=== PATIENT | male | born 1985 | race Caucasian/White ===

== ENCOUNTER 2022-10-03 07:50 | Inpatient (IN) ==
[2022-10-03] MEDS ORDERED: ACTIVATED CHARCOAL/SORBITOL 25 GM/120 ML TUBE PO STA (08:33)
--- NOTE | 2022-10-03 08:35 | Emergency Department Note ---
Impression & Plan Depression, Overdose, Suicide, Acute hypokalemia, Acute hyponatremia, Transaminitis, Acute alcoholism ED Provider Note INFORMANT: Patient ED PROVIDER(S): Wayne Meza DO CHIEF COMPLAINT: Depression, suicidal, Advil overdose PLAN: Disposition: Psychiatric admission Condition: Stable Outpatient prescription management: none Referral: I spoke with the hospitalist, who will see the patient for a dmission/observation and further evaluation and consultation. MEDICAL DECISION MAKING: This is a 37-year-old male who presents to the ED with a chief complaint of Advil overdose. The patient states that he took 30 Advil tablets about half hour prior to arrival. The patient also had a knife in his pocket and threatened to stab himself. The patient states that he has a history of bipolar disorder. He has not been taking his meds for at least a year or 2. He has not been sleeping well for the past 5 days. He states that he is not taking his medications because he cannot afford them. The patient has been having some suicidal thoughts and hearing voices that states that they are going to kill him. His vital signs reveal mild tachycardia. His physical exam was unremarkable. He is cooperative. He is agreeable to inpatient. The patient's twelve-lead EKG shows a sinus rhythm at a rate of 101. CBC did not show any significant leukocytosis or anemia. The chemistry panel shows a low calcium of 2.4. Sodium is also low at 124. He does have a transaminitis. Mild bilirubin elevation. This is likely related to his alcoholism. He was requestioned with regards to what he took. He states Advil. He denies taking Tylenol or acetaminophen. The patient was given oral potassium as well as IV potassium. He was given IV fluids, IM Compazine and activated charcoal. The patient took the activated charcoal and subsequently vomited shortly after taking it. No pills were observed by the nurse. I spoke with the hospitalist, who will see the patient for further medical inpatient evaluation. While is here he can get seen by psychiatry as well. Triage Nursing notes reviewed. Vital Signs: reviewed Prior /Outside records reviewed: none Differential diagnosis: Differential includes toxic ingestions, self-mutilation, suicidal ideation, suicide attempt, depression, metabolic issues. Diagnostics, as interpreted by me: 12 lead ECG: Sinus rhythm 101. No ST elevation. No PVCs. Normal QTC. Cardiac Monitoring ordered: none Medical decision rules: none Imaging studies: Procedures: none. Critical care: none. HPI: See MDM above. PAST MEDICAL HISTORY: See Below PAST SURGICAL HISTORY: See Below SOCIAL HISTORY: See Below HOME MEDICATIONS: See Below ALLERGIES: See Below VITALS: See Below PHYSICAL EXAMINATION: CONSTITUTIONAL/VITAL SIGNS: Reviewed GENERAL: Non-toxic in appearance. INTEGUMENTARY: Warm, dry, and [place]. HEAD: Normocephalic. EYES: without scleral icterus. ENT/OROPHARYNX: clear and moist. RESPIRATORY: No increased work of breathing. Lungs clear. CARDIOVASCULAR: Regular rate. Regular rhythm. GI/ABDOMEN: Soft and nontender. . EXTREMITIES: Normal NEUROLOGICAL: Intact without focal deficits. PSYCHIATRIC: Normal affect. MUSCULOSKELETAL: Normal. TRIAGE NURSING DOCUMENTATION REVIEWED. Past Med/Surg History Medical History Alcohol abuse Surgical History No significant past surgical history Social History Smoking Status: Current every day smoker Tobacco Type: Cigarettes Preferred Language: Djiboutian Feels Safe at Home: Yes Allergies Allergies Allergy/AdvReac Type Severity Reaction Status Date / Time No Known Allergies Allergy Unverified 07/15/22 08:24 Home Meds Previous Rx's Medication Instructions Recorded amoxicillin 875 mg-potassium 1 tab PO BID #20 tabs 07/15/22 clavulanate 125 mg tablet Results & Data (ED) Vital Signs Vital Signs - 24 hr 10/03/22 08:03 10/03/22 08:03 Temperature 36.8 C Temperature Source Oral Pulse Rate 113 H Pulse Rhythm Regular Pulse Strength Normal Respiratory Rate 22 Respiratory Effort / Characteristics Non-Labored Spontaneous Respiratory Depth Normal Respiratory Pattern Regular Blood Pressure 134/83 Blood Pressure Mean 100 Blood Pressure Position Sitting Pulse Oximetry 98 98 Oxygen Delivery Method Room Air Room Air Oxygen Flow Rate 0 Sepsis New/Unexplained Change in Mental Status N/A Sepsis Action Taken by Nursing No Action Required Laboratory Data 10/03/22 08:40 10/03/22 08:40 Lab Results 10/03/22 10/03/22 10/03/22 Range/Units 08:00 08:00 08:40 WBC 4.50 L (4.8-10.8) K/ul RBC 3.77 L (4.70-6.10) M/uL Hgb 13.4 L (14.0-18.0) g/dl Hct 35.4 L (42.0-52.0) % MCV 93.9 (80.0-100.0) fL MCH 35.5 H (25.0-34.0) pg MCHC 37.9 H (32.0-36.0) g/dL RDW Std Deviation 43.9 (36.4-46.3) fL RDW Coeff of Juan 12.7 (11.5-14.5) % Plt Count 63 L (130-400) K/uL MPV 12.7 H (9.4-12.4) fL Immature Gran % (Auto) 0.4 % Neut % (Auto) 78.2 % Lymph % (Auto) 9.6 % [place] % (Auto) 11.6 % Eos % (Auto) 0.0 % Baso % (Auto) 0.2 % Neut # (Auto) 3.52 (1.40-6.50) K/uL Lymph # (Auto) 0.43 L (1.2-3.4) K/uL [place] # (Auto) 0.52 (0.11-0.59) K/uL Eos # (Auto) 0.00 (0-0.50) K/uL Baso # (Auto) 0.01 (0-0.2) K/uL Immature Gran # (Auto) 0.02 (0.01-0.20) K/uL RBC Morphology Unremarkable Sodium (136-145) mmol/L Potassium (3.5-5.1) mmol/L Chloride (98-107) mmol/L Carbon Dioxide (21-32) mmol/L Anion Gap (3-11) BUN (6-23) mg/dl Creatinine (0.6-1.4) mg/dl Est Cr Clr Drug Dosing ml/min Est GFR ( Amer) ml/min Est GFR (Non-Af Amer) ml/min BUN/Creatinine Ratio (10-20) Glucose (70-99(Fasting)) mg/dl Calcium (8.5-10.1) mg/dl Total Bilirubin (0.2-1.0) mg/dl AST (13-39) U/L ALT (7-52) U/L Alkaline Phosphatase (34-104) U/L Total Protein (6.0-8.3) gm/dl Albumin (3.4-5.0) gm/dl Globulin (2.5-4.0) gm/dl Albumin/Globulin Ratio (0.9-2) TSH (0.300-4.500) uIu/ml Urine Color [place] Urine Appearance Turbid A (Clear) Urine pH 6.5 (4.5-7.5) Ur Specific [place] 1.026 (1.000-1.030) Urine Protein 3+ H (Negative) Urine Glucose (UA) Negative (Negative) Urine Ketones 1+ H (Negative) Urine Blood Negative (Negative) Urine Nitrite Positive A (Negative) Urine Bilirubin 2+ H (Negative) Urine Urobilinogen Negative (Negative) Ur Leukocyte Esterase 1+ H (Negative) Urine WBC (Auto) 1-5 (0-5) /hpf Urine RBC (Auto) 0-4 (0-4) /hpf U Hyaline Cast (Auto) 1-5 (0-5) /lpf U Epithel Cells (Auto) 5-10 H (0-5) /lpf Urine Bacteria (Auto) Negative (Negative) Urine Crystals Not Reportable Amorphous Sediment Present A (None Prsent) Salicylates (3.0-30) mg/dl Urine Opiates Screen Neg (Neg) Ur Methadone, Qual Neg (Neg) Acetaminophen (10-30) ug/ml Urine Barbiturates Neg (Neg) Ur Phencyclidine (PCP) Neg (Neg) U Amphetamin/Meth Scrn Neg (Neg) MDMA (Ecstasy) Screen Neg (Neg) U Benzodiazepines Scrn Neg (Neg) Ur Cocaine Metabolite Neg (Neg) U Marijuana (THC) Screen Neg (Neg) Ethyl Alcohol mg/dL (<10.0) mg/dl SARS-CoV-2, RNA, NAAT (NEGATIVE) 10/03/22 10/03/22 10/03/22 Range/Units 08:40 08:40 08:40 WBC (4.8-10.8) K/ul RBC (4.70-6.10) M/uL Hgb (14.0-18.0) g/dl Hct (42.0-52.0) % MCV (80.0-100.0) fL MCH (25.0-34.0) pg MCHC (32.0-36.0) g/dL RDW Std Deviation (36.4-46.3) fL RDW Coeff of Juan (11.5-14.5) % Plt Count (130-400) K/uL MPV (9.4-12.4) fL Immature Gran % (Auto) % Neut % (Auto) % Lymph % (Auto) % [place] % (Auto) % Eos % (Auto) % Baso % (Auto) % Neut # (Auto) (1.40-6.50) K/uL Lymph # (Auto) (1.2-3.4) K/uL [place] # (Auto) (0.11-0.59) K/uL Eos # (Auto) (0-0.50) K/uL Baso # (Auto) (0-0.2) K/uL Immature Gran # (Auto) (0.01-0.20) K/uL RBC Morphology Sodium 124 L (136-145) mmol/L Potassium 2.4 L* (3.5-5.1) mmol/L Chloride 81 L (98-107) mmol/L Carbon Dioxide 35 H (21-32) mmol/L Anion Gap 8 (3-11) BUN 8 (6-23) mg/dl Creatinine 1.09 (0.6-1.4) mg/dl Est Cr Clr Drug Dosing 93.7 ml/min Est GFR ( Amer) 101.4 ml/min Est GFR (Non-Af Amer) 87.5 ml/min BUN/Creatinine Ratio 7.3 L (10-20) Glucose 118 H (70-99(Fasting)) mg/dl Calcium 10.2 H (8.5-10.1) mg/dl Total Bilirubin 2.0 H (0.2-1.0) mg/dl AST 248 H (13-39) U/L ALT 225 H (7-52) U/L Alkaline Phosphatase 75 (34-104) U/L Total Protein 7.6 (6.0-8.3) gm/dl Albumin 4.6 (3.4-5.0) gm/dl Globulin 3.0 (2.5-4.0) gm/dl Albumin/Globulin Ratio 1.5 (0.9-2) TSH 1.243 (0.300-4.500) uIu/ml Urine Color Urine Appearance (Clear) Urine pH (4.5-7.5) Ur Specific [place] (1.000-1.030) Urine Protein (Negative) Urine Glucose (UA) (Negative) Urine Ketones (Negative) Urine Blood (Negative) Urine Nitrite (Negative) Urine Bilirubin (Negative) Urine Urobilinogen (Negative) Ur Leukocyte Esterase (Negative) Urine WBC (Auto) (0-5) /hpf Urine RBC (Auto) (0-4) /hpf U Hyaline Cast (Auto) (0-5) /lpf U Epithel Cells (Auto) (0-5) /lpf Urine Bacteria (Auto) (Negative) Urine Crystals Amorphous Sediment (None Prsent) Salicylates < 3.0 L (3.0-30) mg/dl Urine Opiates Screen (Neg) Ur Methadone, Qual (Neg) Acetaminophen < 3 L (10-30) ug/ml Urine Barbiturates (Neg) Ur Phencyclidine (PCP) (Neg) U Amphetamin/Meth Scrn (Neg) MDMA (Ecstasy) Screen (Neg) U Benzodiazepines Scrn (Neg) Ur Cocaine Metabolite (Neg) U Marijuana (THC) Screen (Neg) Ethyl Alcohol mg/dL (<10.0) mg/dl SARS-CoV-2, RNA, NAAT (NEGATIVE) 10/03/22 10/03/22 Range/Units 08:40 08:41 WBC (4.8-10.8) K/ul RBC (4.70-6.10) M/uL Hgb (14.0-18.0) g/dl Hct (42.0-52.0) % MCV (80.0-100.0) fL MCH (25.0-34.0) pg MCHC (32.0-36.0) g/dL RDW Std Deviation (36.4-46.3) fL RDW Coeff of Juan (11.5-14.5) % Plt Count (130-400) K/uL MPV (9.4-12.4) fL Immature Gran % (Auto) % Neut % (Auto) % Lymph % (Auto) % [place] % (Auto) % Eos % (Auto) % Baso % (Auto) % Neut # (Auto) (1.40-6.50) K/uL Lymph # (Auto) (1.2-3.4) K/uL [place] # (Auto) (0.11-0.59) K/uL Eos # (Auto) (0-0.50) K/uL Baso # (Auto) (0-0.2) K/uL Immature Gran # (Auto) (0.01-0.20) K/uL RBC Morphology Sodium (136-145) mmol/L Potassium (3.5-5.1) mmol/L Chloride (98-107) mmol/L Carbon Dioxide (21-32) mmol/L Anion Gap (3-11) BUN (6-23) mg/dl Creatinine (0.6-1.4) mg/dl Est Cr Clr Drug Dosing ml/min Est GFR ( Amer) ml/min Est GFR (Non-Af Amer) ml/min BUN/Creatinine Ratio (10-20) Glucose (70-99(Fasting)) mg/dl Calcium (8.5-10.1) mg/dl Total Bilirubin (0.2-1.0) mg/dl AST (13-39) U/L ALT (7-52) U/L Alkaline Phosphatase (34-104) U/L Total Protein (6.0-8.3) gm/dl Albumin (3.4-5.0) gm/dl Globulin (2.5-4.0) gm/dl Albumin/Globulin Ratio (0.9-2) TSH (0.300-4.500) uIu/ml Urine Color Urine Appearance (Clear) Urine pH (4.5-7.5) Ur Specific [place] (1.000-1.030) Urine Protein (Negative) Urine Glucose (UA) (Negative) Urine Ketones (Negative) Urine Blood (Negative) Urine Nitrite (Negative) Urine Bilirubin (Negative) Urine Urobilinogen (Negative) Ur Leukocyte Esterase (Negative) Urine WBC (Auto) (0-5) /hpf Urine RBC (Auto) (0-4) /hpf U Hyaline Cast (Auto) (0-5) /lpf U Epithel Cells (Auto) (0-5) /lpf Urine Bacteria (Auto) (Negative) Urine Crystals Amorphous Sediment (None Prsent) Salicylates (3.0-30) mg/dl Urine Opiates Screen (Neg) Ur Methadone, Qual (Neg) Acetaminophen (10-30) ug/ml Urine Barbiturates (Neg) Ur Phencyclidine (PCP) (Neg) U Amphetamin/Meth Scrn (Neg) MDMA (Ecstasy) Screen (Neg) U Benzodiazepines Scrn (Neg) Ur Cocaine Metabolite (Neg) U Marijuana (THC) Screen (Neg) Ethyl Alcohol mg/dL < 10.0 (<10.0) mg/dl SARS-CoV-2, RNA, NAAT NEGATIVE (NEGATIVE) Administered Medications Discontinued Medications Charcoal/Sorbitol (Activated Charcoal/Sorbitol 25 Gm/120 Ml Tube) 50 gm PO NOW STA Stop: 10/03/22 08:34 Last Admin: 10/03/22 08:50 Dose: 50 gm Documented By: AM Prochlorperazine (Prochlorperazine 5 Mg/Ml 2 Ml Vial) 10 mg IM NOW STA Stop: 10/03/22 08:59 Last Admin: 10/03/22 09:05 Dose: 10 mg Documented By: AM Discharge Plan Visit Data Chief Complaint: Overdose (Intentional) Stated Complaint: OVERDOSE ED Provider: Wayne Meza Discharge Problem: Depression, Overdose, Suicide, Acute hypokalemia, Acute hyponatremia, Transaminitis, Acute alcoholism Forms Stand Alone Forms: My [facility], Suicide Prevention Resources Prescriptions Prescriptions: No Action amoxicillin-pot clavulanate 875-125 mg tablet 1 tab PO BID Qty: 20 0RF Referrals Referrals: PCP,NO [Primary Care Provider] -
[2022-10-03 08:48] LABS: Appearance Urine Turbid (Clear); Bacteria Urine Automated Negative (Negative); Blood Urine Negative (Negative); Color Urine Orange; Glucose Urine UA Negative (Negative); Ketones Urine 1+ (Negative); Leukocyte Esterase Urine 1+ (Negative); Nitrite Urine Positive (Negative); Protein Urine 3+ (Negative); Specific Gravity Urine 1.026 (1.000-1.030); Urobilinogen Urine Negative (Negative); pH Urine 6.5 (4.5-7.5)
[2022-10-03 08:55] LABS: Bilirubin Urine 2+ (Negative)
[2022-10-03] MEDS ORDERED: PROCHLORPERAZINE 5 MG/ML 2 ML VIAL IM STA (08:58)
[2022-10-03 09:08] LABS: Amorphous Sediment Urine Present (None Prsent)
[2022-10-03 09:09] LABS: RBC Urine Automated 0-4 /hpf (0-4)
[2022-10-03 09:14] LABS: Acetaminophen < 3 ug/ml (10-30); Salicylate < 3.0 mg/dl (3.0-30)
[2022-10-03 09:21] LABS: Albumin Globulin Ratio 1.5 (0.9-2); Albumin Level 4.6 gm/dl (3.4-5.0); BUN Creatinine Ratio 7.3 (10-20); Calcium 10.2 mg/dl (8.5-10.1); Creatinine Clr Calc Pharmacy 93.7 ml/min; Est GFR (African American) 101.4 ml/min; Est GFR (Non-African American) 87.5 ml/min; Potassium 2.4 mmol/L (3.5-5.1); Total Protein 7.6 gm/dl (6.0-8.3)
[2022-10-03 09:22] LABS: Amphetamines+Metham, Urine Neg (Neg); Barbiturates, Urine Neg (Neg); Benzodiazepine, Urine Neg (Neg); Cocaine, Urine Neg (Neg); MDMA (Ecstacy), Urine Neg (Neg); Methadone, Urine Neg (Neg); Opiate, Urine Neg (Neg); Phencyclidine, Urine Neg (Neg)
[2022-10-03 09:30] LABS: Basophils # (auto) 0.01 K/uL (0-0.2); Basophils % (auto) 0.2 %; Hematocrit (blood only) 35.4 % (42.0-52.0); Hemoglobin 13.4 g/dl (14.0-18.0); Immature Granulocytes # (auto) 0.02 K/uL (0.01-0.20); Immature Granulocytes % (auto) 0.4 %; Lymphocytes # (auto) 0.43 K/uL (1.2-3.4); Lymphocytes % (auto) 9.6 %; Mean Corpuscular Hemoglobin 35.5 pg (25.0-34.0); Mean Corpuscular Hgb Conc 37.9 g/dL (32.0-36.0); Mean Corpuscular Volume 93.9 fL (80.0-100.0); Mean Platelet Volume 12.7 fL (9.4-12.4); Monocytes # (auto) 0.52 K/uL (0.11-0.59); Monocytes % (auto) 11.6 %; Neutrophils # (auto) 3.52 K/uL (1.40-6.50); Neutrophils % (auto) 78.2 %; Platelet Count 63 K/uL (130-400); RBC Morphology Unremarkable; RDW Coefficient of Variation 12.7 % (11.5-14.5); RDW Standard Deviation 43.9 fL (36.4-46.3); Red Blood Count 3.77 M/uL (4.70-6.10)
[2022-10-03] MEDS ORDERED: SODIUM CHLORIDE 0.9% 1000ML 1,000 ML IV ONE (09:47)
[2022-10-03] MEDS ORDERED: POTASSIUM CHLORIDE / WTR 10 MEQ/100 ML PLCT IV ONE (09:47)
[2022-10-03] MEDS ORDERED: POTASSIUM CHLORIDE 10 MEQ TABCR PO STA (09:47)
--- NOTE | 2022-10-03 10:48 | Electrocardiogram Report ---
Test Reason : Blood Pressure : / mmHG Vent. Rate : 101 BPM Atrial Rate : 101 BPM P-R Int : 148 ms QRS Dur : 078 ms QT Int : 350 ms P-R-T Axes : 095 050 037 degrees QTc Int : 453 ms Sinus tachycardia Otherwise normal ECG No previous ECGs available Confirmed by Man Webb [id number]) on 10/03/2022 10:47:52 AM Referred By: REFERRED SELF Confirmed By:Man Webb
--- NOTE | 2022-10-03 10:59 | History & Physical Report ---
Date of Service October 03, 2022 Assessment & Plan (1) Acute hypokalemia: (2) Acute hyponatremia: (3) Transaminitis: (4) Overdose: (5) Suicide: (6) Alcohol abuse: (7) Depression: Plan: #Depression #Suicide attempt (intentional drug overdose) Patient has history of depression as well as possible schizophrenia, currently hearing voices in his head. States that he took 30 Advil at around 4:30 AM on 10/03, drug screen was negative in the ED as well as salicylate and acetaminophen levels be normal. Does not appear patient took any other illicit substances. States that he does have a history of suicide attempts and has been admitted to the hospital that he states 50 times. He does have what looks like healing self-harm scars on his arm and wrist. Psych consulted, suicide precautions, and one-to-one ordered. We will start on IV fluids, PPI, and other supportive care. #Transaminitis We will get right upper quadrant ultrasound due to new onset of elevated liver enzymes. Bilirubin at 2.0, INR reassuring at 1.1. Most likely secondary to alcohol use, given the fact that patient also has thrombocytopenia. Though acute overdose may play a part in his elevated liver enzymes. We continue to monitor acutely to ensure there is no increase in liver enzymes. #Acute hypokalemia Potassium 2.4 while in the ED, Was given approximately 70 units of potassium in the ED. Patient was started on 40 mEq KCl for 3 doses. Repeat BMP at time of admission showed a potassium of 3.1 EKG showed sinus tach without any other abnormalities. Will admit on telemetry at this time, though once hypokalemia resolves, can most likely go to [facility]. #Acute hyponatremia Exact etiology unsure at this time is likely due to poor intake. Was 124 in the ED, improved to 129 at time of admission. #Thrombocytopenia Most likely chronic due to alcohol abuse, other drug use, or acute overdose. Drug-induced TTP should remain on the differential, though seems unlikely. Will continue to monitor with daily CBCs. #Alcohol abuse States that he has not drank in 4 days. Does state that voices and they get worse with withdrawal from alcohol, though he hears it at other times. Cannot rule out that patient's voices in his head are not due to going through alcohol withdrawal and may represent delirium tremens. Will be started on thiamine and folic acid We will monitor for withdrawals with a AWSS protocol in place Fluids: 1 L NSS@75 mL/h daily Nutrition: Regular diet Code status: Full code, patient wishes to be DNR/DNI. Though unlikely that patient will need this during his hospital admission, patient reports hearing voices and is severely depressed. Unsure if patient has capacity to make this decision at this time, given the fact that he is also falling asleep while talking to him and on physical exam. Would like to completely rule out any other substances that he may be taking at this time. Should be reassessed on a daily past basis. Consults: Psych Dispo: Telemetry Thank you for allowing me to participate in the care of your patient. -Dr. Venkat Neil PGY1 Plan Overdosesuicide intentibuprofen. Follow for any hint of other substance ingestions, but drug screen, acetaminophen level, salicylate level all very reassuring. Follow-up basic metabolic panel in a few hours. IV fluids, acid suppression, supportive care. Due to limited history, and time from ingestion to first labswe will also repeat acetaminophen level with repeat basic metabolic panel just for completeness/making sure we would not miss anything that could be catastrophic. Hyponatremiaetiology not entirely clear, certainly could be poor p.o. intake/poor solute in the face of heavy alcohol use, although reportedly he stopped drinking about 4 days ago. Repeat basic metabolic panel to trend Transaminitisbilirubin mildly worrisome at 2.0, but INR reassuring at 1.1. Could easily be effects of alcohol ingestion, ibuprofen overdose, both. Trend. With thrombocytopenia I do worry about some degree of chronicity of alcohol abuse Hypokalemialikely poor p.o. intake. Replete, follow. Repeat basic metabolic panel this afternoon. EKG reassuring. Hypercalcemialikely due to volume downtrend Thrombocytopeniasuspect chronic related to alcohol abuse, either liver congestion/splenic sequestration or marrow suppressionbut certainly could be an acute reactant related to overdose. Trend Depression, possible psychosis/suicidalitysuicide precautions, 1:1, psychiatry consult Otherwise as above History of Present Illness Chief Complaint: Advil overdose (intentional) Primary Care Provider: NO PCP Patient is a 37-year-old male who presents to the hospital for suicide attempt with ibuprofen overdose. Patient is from [place], who moved here a couple months ago for work. He recently got fired from his job, and early this morning around 4-4 30 a.m. patient states that he took 30+ Advil. He states that he has a history of suicide attempts, states he has been admitted to hospitals in different states approximately "50 times" for suicide. Patient also notes that he drinks alcohol in excess. Drinks about 10-12 mixed drinks in a day from tue up to . States that his last drink was 4 days ago. He also states that he is hearing voices in his head that are not his own voice, telling him that he is "a loser" and that he should "kill himself". Patient states that he only sometimes hears voices in his head, and states that they get worse when he is withdrawing from alcohol. He states that he has been on psychiatric meds in the past such as Abilify and Lexapro but he has stopped taking his medications irving roximately a year ago. Patient also admits to using meth in the past, last time being 1 year ago. Patient also states that he has not eaten in 30 days. When asked to expand on this he says that he maybe has snacks every once in a while but he has not "eaten in 30 days". In the ED, CBC showed thrombocytopenia. CMP were remarkable for a potassium of 2.4, sodium of 124, carbon dioxide of 35, AST of 248, ALT of 225, and a bilirubin of 2.0. Drug and alcohol toxicology was negative. Low salicylates at under 3.0 as well as low acetaminophen under 3.0. Patient was given activated charcoal which made him vomit and of note nurse states she did not see any pills in the vomit. When discussing CODE STATUS with patient patient initially states that he just wants to be left alone to . States that he does not want anything that will help him to live. Also talking to the patient, patient started to drift off and stated that he just went to sleep at this time. Was able to do a physical exam and to get information above, though unable to get a true review of systems. Allergies Allergy/AdvReac Type Severity Reaction Status Date / Time No Known Allergies Allergy Unverified 07/15/22 08:24 Home Medications Medication Instructions Recorded Confirmed Type amoxicillin 875 mg-potassium 1 tab PO BID #20 tabs 07/15/22 Rx clavulanate 125 mg tablet Past Med/Surg History Medical History Alcohol abuse Surgical History No significant past surgical history Social History Smoking Status: Current every day smoker Tobacco Type: Cigarettes Hx Alcohol Use: Yes Alcohol type: beer Hx Substance Use: No Preferred Language: Japanese Communication Ability: Effective Site Auditor Required: No Beliefs That Will Affect Care: None Current Living Situation: Alone Feels Safe at Home: Yes Review of Systems Review of Systems: Unobtainable due to reduced consciousness Physical Exam Constitutional: + disheveled, cooperative and + lethargic Eyes: PERRL, conjunctivae normal, anicteric sclerae Respiratory: normal respiratory effort, lungs clear to auscultation Cardiovascular: RRR, no murmur, no edema Gastrointestinal (Abdomen): normal bowel sounds, soft, nontender, no hepatosplenomegaly Musculoskeletal: no cyanosis or clubbing, extremities motor strength 5/5 Skin: Hypertrophic scars on wrist and arm Psychiatric: Orientation: oriented x 3 Mood: + depressed mood Hallucinations: + auditory hallucinations Results & Data Results & Data ([facility] Vital Signs (Past 12 Hours) Vital Signs Temp Pulse Resp BP Pulse Ox O2 Del Method O2 Flow Rate 10/03/22 08:03 98 Room Air 0 10/03/22 08:03 36.8 C 113 H 22 134/83 98 Room Air Supervising Physician Co-Signing Physician Notes I personally examined the patient and verified all harris points of history and exam, discussed case, and agree with decision making with Dr Neil Not much HPI review of systems. Notes stomach is a little bit upset. Reportedly took about 30 [id number] ibuprofen tablets, nothing else. Has been drinking heavily, reportedly last drink 4 days ago. HPI and review of systems fairly limited between fatigue and patient being fairly withdrawn. Vitals noted, in general he is resting appears very fatigued but not really in any true physical or neurologic distress. Breathing unlabored no accessory muscle use, cardio regular without rubs murmurs or gallops and lungs are clear. Abdomen is soft mild epigastric tenderness no guarding rebound or rigidity. Skin without pallor or icterus, no diaphoresis. Overdosesuicide intentibuprofen. Follow for any hint of other substance ingestions, but drug screen, acetaminophen level, salicylate level all very reassuring. Follow-up basic metabolic panel in a few hours. IV fluids, acid suppression, supportive care. Due to limited history, and time from ingestion to first labswe will also repeat acetaminophen level with repeat basic metabolic panel just for completeness/making sure we would not miss anything that could be catastrophic. Hyponatremiaetiology not entirely clear, certainly could be poor p.o. intake/poor solute in the face of heavy alcohol use, although reportedly he stopped drinking about 4 days ago. Repeat basic metabolic panel to trend Transaminitisbilirubin mildly worrisome at 2.0, but INR reassuring at 1.1. Could easily be effects of alcohol ingestion, ibuprofen overdose, both. Trend. With thrombocytopenia I do worry about some degree of chronicity of alcohol abuse Hypokalemialikely poor p.o. intake. Replete, follow. Repeat basic metabolic panel this afternoon. EKG reassuring. Hypercalcemialikely due to volume downtrend Thrombocytopeniasuspect chronic related to alcohol abuse, either liver congestion/splenic sequestration or marrow suppressionbut certainly could be an acute reactant related to overdose. Trend Depression, possible psychosis/suicidalitysuicide precautions, 1:1, psychiatry consult Otherwise as above Resident Activity Tracking Resident Involvement: Resident Care Provided Care Provided: Adult Hospital Medicine
[2022-10-03] MEDS ORDERED: SODIUM CHLORIDE 0.9% 1000ML 1,000 ML IV SCH (11:15)
[2022-10-03] MEDS ORDERED: FOLIC ACID 1 MG in SYRINGE 9.8 ML IV ONE (11:30)
[2022-10-03 11:42] LABS: INR 1.1 (0.9-1.1); Prothrombin Time 11.3 Seconds (9.0-12.0)
[2022-10-03] MEDS ORDERED: THIAMINE HCL 100 MG in SYRINGE 9 ML IV ONE (11:45)
[2022-10-03] MEDS ORDERED: Ativan IV Alcohol Withdrawal--Active Protocol IV PRN (13:46)
[2022-10-03] MEDS ORDERED: LORazepam 2 MG/1 ML VIAL IV PRN ×3 (13:46)
--- NOTE | 2022-10-03 14:02 | Billing Data ---
Date of Service October 03, 2022 Coding Level of Care Code 83122 SUB INP/OBS CARE MIN
[2022-10-03] MEDS: POTASSIUM CHLORIDE CRTAB 20 MEQ TABCR PO SCH ×2 (14:52→22:20)
[2022-10-03] MEDS: PANTOprazole 40 MG TAB PO SCH ×2 (14:52→22:37)
[2022-10-03 15:05] LABS: BUN Creatinine Ratio 6.1 (10-20); Calcium 9.3 mg/dl (8.5-10.1); Creatinine Clr Calc Pharmacy 101.2 ml/min; Est GFR (African American) 115.3 ml/min; Est GFR (Non-African American) 99.5 ml/min; Potassium 3.1 mmol/L (3.5-5.1)
[2022-10-03] MEDS ORDERED: LACTATED RINGER'S 1,000 ML IV SCH (18:00)
[2022-10-03] MEDS: SODIUM CHLOR 0.45% + 20MEQ KCL 20 MEQ/1,000 ML BAG IV SCH (20:04)
[2022-10-04 06:34] LABS: Hematocrit (blood only) 36.6 % (42.0-52.0); Hemoglobin 13.3 g/dl (14.0-18.0); Mean Corpuscular Hemoglobin 35.3 pg (25.0-34.0); Mean Corpuscular Hgb Conc 36.3 g/dL (32.0-36.0); Mean Corpuscular Volume 97.1 fL (80.0-100.0); Mean Platelet Volume 12.9 fL (9.4-12.4); Platelet Count 74 K/uL (130-400); RDW Coefficient of Variation 13.1 % (11.5-14.5); RDW Standard Deviation 46.7 fL (36.4-46.3); Red Blood Count 3.77 M/uL (4.70-6.10); White Blood Count 1.92 K/ul (4.8-10.8)
[2022-10-04 06:37] LABS: Albumin Globulin Ratio 1.6 (0.9-2); Albumin Level 3.9 gm/dl (3.4-5.0); BUN Creatinine Ratio 6.6 (10-20); Bilirubin,Total 1.3 mg/dl (0.2-1.0); Calcium 8.9 mg/dl (8.5-10.1); Creatinine Clr Calc Pharmacy 132.6 ml/min; Est GFR (Non-African American) 118.2 ml/min; Globulin 2.5 gm/dl (2.5-4.0); Magnesium 1.9 mg/dl (1.7-2.4); Potassium 3.3 mmol/L (3.5-5.1); Total Protein 6.4 gm/dl (6.0-8.3)
[2022-10-04 06:40] LABS: Prothrombin Time 10.4 Seconds (9.0-12.0)
[2022-10-04] MEDS ORDERED: POTASSIUM CHLORIDE CRTAB 20 MEQ TABCR PO ONE (06:49)
[2022-10-04 06:57] LABS: Basophils # (auto) 0.01 K/uL (0-0.2); Basophils % (auto) 0.5 %; Giant Platelets 1+; Lymphocytes # (auto) 0.59 K/uL (1.2-3.4); Lymphocytes % (auto) 30.7 %; Monocytes # (auto) 0.27 K/uL (0.11-0.59); Monocytes % (auto) 14.1 %; Neutrophils # (auto) 1.05 K/uL (1.40-6.50); Neutrophils % (auto) 54.7 %; Ovalocytes 1+
--- NOTE | 2022-10-04 07:58 | Medical Student H&P ---
Date of Service October 04, 2022 Assessment & Plan (1) Overdose: Plan: Mr. Tristin Arechiga is a 37 year old male with a PMHx of anxiety, panic attacks, alcohol use disorder, depression, self injurious behavior, and prior suicide attempts who presented to the ED on 10/03/22 for concerns of intentional overdose. The patient states that he took 30 Advil tablets at 4:30 AM on 10/03/22 with the intention to end his life. He has been experiencing auditory hallucinations for the past 5 days, in addition to difficulty sleepy. -Intentional Overdose, Ibuprofen * Vital signs stable with the exception for blood pressure of 93/63. * Drug screen, acetaminophen level, and salicylate level reassuring from 10/03/22. Repeat labs today were also reassuring. * Will continue IV fluids and supportive care. Will continue IV thiamine, folic acid, and protonix. * Hemoccult all stools. * Improving, but not yet medically stable. Will continue to trend lab work. -Transaminitis * Most likely secondary to alcohol use, given thrombocytopenia. Acute overdose may have played a role in elevated liver enzymes. * US obtained due to new onset of elevated liver enzymes. Results from 10/04/22 showed: Hepatomegaly with hepatic steatosis. Unremarkable gallbladder. No biliary ductal dilation. * 10/03/22: Bilirubin at 2.0, INR 1.1 * 10/04/22: Bilirubin down to 1.3, INR at 1.0. * Will continue to monitor. -Acute hypokalemia, resolving * Potassium 2.4 while in ED. Was given 70 units of potassium in ED. Started on 40 Jose Antonio KCL for 3 doses. Repeat BMP at time of admission showed potassium of 3.1. Potassium was 3.3 this morning. * EKG was reassuring: sinus tachycardia without any other abnormalities. * Was admitted to telemetry. Will admit to [facility] once hypokalemia resolves. * Patient is not currently endorsing chest pain, shortness of breath,or palpitations. His blood pressure was 134/83 in the ED, but has been around 93/63 since this morning.Will continue to monitor. -Acute hyponatremia, resolved * Etiology unclear at this time. Likely due to poor intake. * Sodium was 124 in ED, improved to 129 at time of admission. Sodium was 137 this morning. -Thrombocytopenia * Most likely chronic due to alcohol use disorder, other drug use, or acute due to overdose. * 10/03/22: 63 * 10/04/22: Increased to 74. * Will continue to monitor with daily CBCs. -Auditory Hallucinations, depression, suicidality * Patient stated that he has a history of bipolar disorder. * Suicide precautions: 1:1 * Consulted [facility]. Will appreciate consult. -Insomnia * Patient requests Ativan for sleep difficulties. * Dr. Duff prescribed hydroxyzine 25 mg PO Q6H PRN. FEN: Will continue IV fluids and supportive care. Will continue IV thiamine, folic acid, and Protonix. Regular diet. Code status: Full code DVT ppx: SCD Consults: [facility] Behavioral Health Dispo: Telemetry. Transfer to inpatient psych once medically stable. Admission and Anticipated Discharge Date Admission Date: October 03, 2022 History of Present Illness Mr. Tristin Arechiga is a 37 year old male with a PMHx of anxiety, panic attacks, alcohol use disorder, depression, self injurious behavior, and prior suicide attempts who presented to the ED on 10/03/22 for concerns of intentional overdose. The patient states that he took 30 Advil tablets at 4:30 AM on 10/03/22 with the intention to end his life. He reports that he hasn't been eating or sleeping well for the past 7 days. He states that he has been mostly only drinking alcohol, water, and smoking during this time. For three days prior to presenting to the ED, he reported vomiting due to trying to taper his alcohol consumption. Since he stopped drinking 7 days ago, Mr. Arechiga mentioned that he has been unable to sleep for more than 1-2 hours a night and has been hearing voices. He states that he can't hear the voices when he is drinking and that they only appear when he stops. There are 8 voices that are both male and female who talk about " and murder." They talk to each other about hurting and killing him, but do not talk to him directly. He states that he can only hear the voices and can't see the people talking. The voices are "worse at night" and he describes them as "annoying." He reports that they sound like they are sometimes directly in front of him and other times coming from in his head. Mr. Arechiga states that when he drinks alcohol, he typically drinks 5-6 "tall" hard seltzers. He has been drinking for 16 years and his longest period of sobriety has been for 1 month. He drinks alcohol to help him sleep, "feel more free," and be more sociable. He currently smokes cigarettes. He reported using cocaine and methamphetamine two years ago, but is not currently using either. He does not report using marijuana or a vape. Mr. Arechiga states that he has been hospitalized twice in the past: 2 years ago in [place] and 4 years ago in [place], both for concerns of hearing voices and difficulty sleeping. He stated that in one of those instances, he attempted suicide through self harming, but later mentioned that the self harm scars on his arms were from the last month and he did it "for fun." Today, Mr. Arechiga reports epigastric abdominal pain, one episodes of diarrhea (one yesterday and one today), urinary hesitancy without dysuria or hematruia, and stable chronic low back pain. He has not been experiencing nausea, vomiting, constipation, chest pain, shortness of breath, palpitations, leg pain, body aches, tremors, or headaches. He denies homicidal ideation. He does not have a history of withdrawal seizures. There were no acute updates over night. Vital signs have been stable, sinus rhythm on EKG. No vomiting. Patient is NPO for U/S liver. He has continued to report auditory hallucinations since being in the hospital. Allergies Allergy/AdvReac Type Severity Reaction Status Date / Time No Known Allergies Allergy Unverified 07/15/22 08:24 Home Medications Medication Instructions Recorded Confirmed Type amoxicillin 875 mg-potassium 1 tab PO BID #20 tabs 07/15/22 Rx clavulanate 125 mg tablet Past Med/Surg History Medical History Alcohol abuse Surgical History No significant past surgical history Social History Smoking Status: Current every day smoker Tobacco Type: Cigarettes Hx Alcohol Use: Yes Alcohol type: beer Alcohol type Comment: hard seltzers Hx Substance Use: Yes Non-Prescribed Medications: Crack / Cocaine and Methamphetamines Preferred Language: [place] Communication Ability: Effective Menagerie Caretaker Required: No Beliefs That Will Affect Care: None Current Living Situation: Alone Feels Safe at Home: Yes Assistive Devices: None Review of Systems See HPI, otherwise noncontributory. Physical Exam Physical Exam: Constitutional: No acute distress. Sleeping with 1-on-1 in the room. HEENT: NCAT, no conjunctival injection. No sclera icterus appreciated. CV: Regular rate and rhythm, no murmur appreciated, extremities well-perfused, no LE edema. Resp: CTABL, no wheezes/rales/rhonchi appreciated,no increased work of breathing. GI: Normal bowel sounds. Soft, nondistended, mildly tender to palpation in the epigastric region. MSK: No gross deformities appreciated. No calf tenderness. Skin: Warm, dry, no rash appreciated. Dark brown birthmark noted in the upper right abdomen. Has tattoos on hands and biceps bilaterally. Well-healed scars present on left forearm. Neuro: Alert, oriented x 3, no focal neurologic deficit appreciated. Mental Status Exam Appearance: Dressed in blue scrubs. Mood: "Tired," apathetic Affect: Congruent. Intensity is flat. Constricted. Reactive and responsive. Speech: Normal rate and rhythm. Soft volume, monotone. Behavior: Calm and cooperative. Minimal eye contact. Intermittent lip smacking noted. Thought Process: Clear, easy to follow, logical. No word salad. No delusions were elicited. Thought Content: Positive suicide ideations. Negative homicidal ideations. Perceptions: Endorses auditory hallucinations, denies visual hallucinations. Language: Fluent Insight: Fair Results & Data ([facility]) Vital Signs (Past 12 Hours) Vital Signs Temp Pulse Pulse Resp BP Pulse Ox O2 Del Method 10/04/22 06:54 36.7 C 85 20 93/63 L 97 Room Air 10/04/22 04:12 36.9 C 77 18 93/68 L 99 Room Air 10/03/22 23:00 77 10/03/22 23:31 36.3 C L 94 H 23 100/73 100 Room Air 10/03/22 22:15 37 C 105 H 21 104/76 98 Room Air Laboratory Results Laboratory Results WBC 1.92 K/ul (4.8-10.8) L 10/04/22 05:42 RBC 3.77 M/uL (4.70-6.10) L 10/04/22 05:42 Hgb 13.3 g/dl (14.0-18.0) L 10/04/22 05:42 Hct 36.6 % (42.0-52.0) L 10/04/22 05:42 MCV 97.1 fL (80.0-100.0) 10/04/22 05:42 MCH 35.3 pg (25.0-34.0) H 10/04/22 05:42 MCHC 36.3 g/dL (32.0-36.0) H 10/04/22 05:42 RDW Std Deviation 46.7 fL (36.4-46.3) H 10/04/22 05:42 RDW Coeff of Juan 13.1 % (11.5-14.5) 10/04/22 05:42 Plt Count 74 K/uL (130-400) L 10/04/22 05:42 MPV 12.9 fL (9.4-12.4) H 10/04/22 05:42 Immature Gran % (Auto) 0.0 % 10/04/22 05:42 Neut % (Auto) 54.7 % 10/04/22 05:42 Lymph % (Auto) 30.7 % 10/04/22 05:42 [place] % (Auto) 14.1 % 10/04/22 05:42 Eos % (Auto) 0.0 % 10/04/22 05:42 Baso % (Auto) 0.5 % 10/04/22 05:42 Neut # (Auto) 1.05 K/uL (1.40-6.50) L 10/04/22 05:42 Lymph # (Auto) 0.59 K/uL (1.2-3.4) L 10/04/22 05:42 [place] # (Auto) 0.27 K/uL (0.11-0.59) 10/04/22 05:42 Eos # (Auto) 0.00 K/uL (0-0.50) 10/04/22 05:42 Baso # (Auto) 0.01 K/uL (0-0.2) 10/04/22 05:42 Immature Gran # (Auto) 0.00 K/uL (0.01-0.20) L 10/04/22 05:42 Giant Platelets 1+ 10/04/22 05:42 RBC Morphology Unremarkable 10/03/22 08:40 Ovalocytes 1+ 10/04/22 05:42 PT 10.4 Seconds (9.0-12.0) 10/04/22 05:42 INR 1.0 (0.9-1.1) 10/04/22 05:42 Sodium 137 mmol/L (136-145) 10/04/22 05:42 Potassium 3.3 mmol/L (3.5-5.1) L 10/04/22 05:42 Chloride 102 mmol/L (98-107) 10/04/22 05:42 Carbon Dioxide 31 mmol/L (21-32) 10/04/22 05:42 Anion Gap 4 (3-11) 10/04/22 05:42 BUN 5 mg/dl (6-23) L 10/04/22 05:42 Creatinine 0.76 mg/dl (0.6-1.4) 10/04/22 05:42 Est Cr Clr Drug Dosing 132.6 ml/min 10/04/22 05:42 Est GFR ( Amer) 137.0 ml/min 10/04/22 05:42 Est GFR (Non-Af Amer) 118.2 ml/min 10/04/22 05:42 BUN/Creatinine Ratio 6.6 (10-20) L 10/04/22 05:42 Glucose 81 mg/dl (70-99(Fasting)) 10/04/22 05:42 Calcium 8.9 mg/dl (8.5-10.1) 10/04/22 05:42 Magnesium 1.9 mg/dl (1.7-2.4) 10/04/22 05:42 Total Bilirubin 1.3 mg/dl (0.2-1.0) H 10/04/22 05:42 AST 192 U/L (13-39) H 10/04/22 05:42 ALT 202 U/L (7-52) H 10/04/22 05:42 Alkaline Phosphatase 60 U/L (34-104) 10/04/22 05:42 Total Protein 6.4 gm/dl (6.0-8.3) 10/04/22 05:42 Albumin 3.9 gm/dl (3.4-5.0) 10/04/22 05:42 Globulin 2.5 gm/dl (2.5-4.0) 10/04/22 05:42 Albumin/Globulin Ratio 1.6 (0.9-2) 10/04/22 05:42 TSH 1.243 uIu/ml (0.300-4.500) 10/03/22 08:40 Urine Color [place] 10/03/22 08:00 Urine Appearance Turbid (Clear) A 10/03/22 08:00 Urine pH 6.5 (4.5-7.5) 10/03/22 08:00 Ur Specific [place] 1.026 (1.000-1.030) 10/03/22 08:00 Urine Protein 3+ (Negative) H 10/03/22 08:00 Urine Glucose (UA) Negative (Negative) 10/03/22 08:00 Urine Ketones 1+ (Negative) H 10/03/22 08:00 Urine Blood Negative (Negative) 10/03/22 08:00 Urine Nitrite Positive (Negative) A 10/03/22 08:00 Urine Bilirubin 2+ (Negative) H 10/03/22 08:00 Urine Urobilinogen Negative (Negative) 10/03/22 08:00 Ur Leukocyte Esterase 1+ (Negative) H 10/03/22 08:00 Urine WBC (Auto) 1-5 /hpf (0-5) 10/03/22 08:00 Urine RBC (Auto) 0-4 /hpf (0-4) 10/03/22 08:00 U Hyaline Cast (Auto) 1-5 /lpf (0-5) 10/03/22 08:00 U Epithel Cells (Auto) 5-10 /lpf (0-5) H 10/03/22 08:00 Urine Bacteria (Auto) Negative (Negative) 10/03/22 08:00 Urine Crystals Not Reportable 10/03/22 08:00 Amorphous Sediment Present (None Prsent) A 10/03/22 08:00 Salicylates < 3.0 mg/dl (3.0-30) L 10/03/22 08:40 Urine Opiates Screen Neg (Neg) 10/03/22 08:00 Ur Methadone, Qual Neg (Neg) 10/03/22 08:00 Acetaminophen < 3 ug/ml (10-30) L 10/03/22 14:13 Urine Barbiturates Neg (Neg) 10/03/22 08:00 Ur Phencyclidine (PCP) Neg (Neg) 10/03/22 08:00 U Amphetamin/Meth Scrn Neg (Neg) 10/03/22 08:00 MDMA (Ecstasy) Screen Neg (Neg) 10/03/22 08:00 U Benzodiazepines Scrn Neg (Neg) 10/03/22 08:00 Ur Cocaine Metabolite Neg (Neg) 10/03/22 08:00 U Marijuana (THC) Screen Neg (Neg) 10/03/22 08:00 Ethyl Alcohol mg/dL < 10.0 mg/dl (<10.0) 10/03/22 08:40 SARS-CoV-2, RNA, NAAT NEGATIVE (NEGATIVE) 10/03/22 08:41 Diagnostic Findings ABDOMINAL ULTRASOUND, RIGHT UPPER QUADRANT HISTORY: Acutely elevated LFTs Elevated AST, ALT, and bili. COMPARISON: None. FINDINGS: Pancreas: The pancreas demonstrates a normal echotexture. Liver: Liver measures 21 cm in length and demonstrates increased echogenicity. No hepatic mass identified. Gallbladder: No gallbladder wall thickening. No gallstones. CBD: 0.4 cm Right kidney: No hydronephrosis. IMPRESSION: 1. Hepatomegaly with hepatic steatosis. 2. Unremarkable gallbladder. 3. No biliary ductal dilation. ACT 112: Negative or not required by law. Electronically signed by: Mustapha Miller M.D. 10/04/2022 9:21 AM Dictated:10/04/22918 Transcribed: 10/04/22918 Medications Administered Current Inpatient Medications Hydroxyzine HCl (Hydroxyzine Hcl 25 Mg Tab) 25 mg PO Q6H PRN PRN Reason: Anxiety Stop: 11/03/22 09:45 Last Admin: 10/04/22 10:10 Dose: 25 mg Thiamine HCl 100 mg/ Syringe 10 mls @ 2 mls/min IV QAM [facility] Stop: 11/03/22 08:59 Last Admin: 10/04/22 09:24 Dose: 2 mls/min Folic Acid 1 mg/ Syringe 10 mls @ 5 mls/min IV QAM [facility] Stop: 11/03/22 08:59 Last Admin: 10/04/22 09:24 Dose: 5 mls/min Potassium Chloride/Sodium Chloride (1/2 Nss + 20meq Kcl 1000ml) 20 meq in 1,000 mls @ 70 mls/hr IV .[id number] [facility]; Protocol Stop: 11/02/22 18:14 Last Admin: 10/04/22 09:23 Dose: 70 mls/hr Lorazepam (Lorazepam 2 Mg/1 Ml Vial) 1 mg IV UD PRN; Protocol PRN Reason: EtOH Withdrawal AWSS Score 6,7 Stop: 11/02/22 13:45 Lorazepam (Lorazepam 2 Mg/1 Ml Vial) 2 mg IV UD PRN; Protocol PRN Reason: EtOH Withdrawal AWSS Score 8,9 Stop: 11/02/22 13:45 Last Admin: 10/03/22 22:29 Dose: 2 mg Lorazepam (Lorazepam 2 Mg/1 Ml Vial) 3 mg IV ONCE PRN; Protocol PRN Reason: EtOH Withdrawal AWSS Score 10+ Pantoprazole Sodium (Pantoprazole 40 Mg Tab) 40 mg PO BID [facility] Stop: 11/02/22 13:45 Last Admin: 10/04/22 09:24 Dose: 40 mg ECG Additional Comments: Vent. Rate : 101 BPM Atrial Rate : 101 BPM P-R Int : 148 ms QRS Dur : 078 ms QT Int : 350 ms P-R-T Axes : 095 050 037 degrees QTc Int : 453 ms Sinus tachycardia Otherwise normal ECG No previous ECGs available Supervising Attestation Medical Student Supervision Note: I was personally present during medical student patient encounter and independently interviewed and examined the patient and verified the harris history and physical, reviewed labs and image studies, discussed the case with Danielle Lara and agree with the findings and care plan. 37 y/o M with h/o AUD and multiple psychiatric hospitalization here with intentional overdose with ibuprofen. c/o epigastric discomfort this am +. improved later in the day. eating well. no blood in stool or dark stool. Exam - alert, oriented x3. Heart- RRR; Lungs- CTA; Abd - soft, NT/ND Intentional overdose - for inpatient psych care once medically stable - anticipate in am HypoK- replacing Transaminitis/alcoholic hepatitis. mild. improving.
[2022-10-04] MEDS ORDERED: FOLIC ACID 1 MG in SYRINGE 9.8 ML IV SCH (09:00)
[2022-10-04] MEDS ORDERED: THIAMINE HCL 100 MG in SYRINGE 9 ML IV SCH (09:00)
[2022-10-04] MEDS: SODIUM CHLOR 0.45% + 20MEQ KCL 20 MEQ/1,000 ML BAG IV SCH ×2 (09:23→23:31)
--- NOTE | 2022-10-04 09:23 | Ultrasound Report ---
ABDOMINAL ULTRASOUND, RIGHT UPPER QUADRANT HISTORY: Acutely elevated LFTs Elevated AST, ALT, and bili. COMPARISON: None. FINDINGS: Pancreas: The pancreas demonstrates a normal echotexture. Liver: Liver measures 21 cm in length and demonstrates increased echogenicity. No hepatic mass identi fied. Gallbladder: No gallbladder wall thickening. No gallstones. CBD: 0.4 cm Right kidney: No hydronephrosis. IMPRESSION: 1. Hepatomegaly with hepatic steatosis. 2. Unremarkable gallbladder. 3. No biliary ductal dilation. ACT 112: Negative or not required by law. Electronically signed by: Mustapha Miller M.D. 10/04/2022 9:21 AM
[2022-10-04] MEDS: PANTOprazole 40 MG TAB PO SCH ×2 (09:24→20:17)
[2022-10-04] MEDS: hydrOXYzine HCl 25 MG TAB PO PRN ×2 (10:10→21:50)
--- NOTE | 2022-10-04 11:46 | Psychiatric Consultation ---
Date of Consultation October 04, 2022 Impression / Recommendations Impression Tristin is a 37 yo admitted medically following an intentional overdose suicide attempt and complicated alcohol withdrawal with auditory hallucinations. Diagnostically consistent with unspecified mood disorder (difficult to determine if true episodes of hypomania consistent with possible BPAD II given custodial concurrent substance use) and depression and psychosis due to alcohol withdrawal in the context of abrupt alcohol discontinuation likely leading to hallucinations as part of DT. Acute risk of self-harm remains elevated and high given suicide attempt, history of prior attempts, limited insight, substance use. Given elevated risk of harm to self they meet criteria for inpatient psychiatric care (ideally dual diagnosis inpatient unit) for diagnostic clarification, safety/stabilization, development of additional coping skills, medication management and disposition/safety planning once medically stable. If they do not agree to voluntary treatment at that time they will meet criteria for 302 status based on severity of suicide attempt and ongoing modifiable risk factors. Overall, I spent a total of 65 minutes with this case including review of chart records, review of labwork, direct evaluation of the patient at bedside, counseling the patient, discussion of the patient with the Nurse, discussion with the psychiatric liason during clinical rounds, risk assessment for acute safety and documentation in the electronic health record. (1) Alcohol use disorder, severe, dependence: (2) Suicide attempt by drug overdose: (3) Self-harming behavior: (4) Unspecified mood [affective] disorder: Plan -Continue 1-on-1 for risk of harm to self -Do not discharge or allow to leave AMA, if attempts to do so call psych liason as he would meet criteria for 302 warrant -Hold psych medications for now -Once medically cleared plan for psychiatric hospitalization (either 201 or 302 status). Psych History Identifying Data 37 yo man with history of bipolar affective disorder and alcohol use admitted medically for complicated alcohol withdrawal and following suicide attempt. Psychiatry consulted for risk assessment and recommendations. Chief Complaint "The voices were driving me crazy". History of Present Illness Tristin presented to the ED seeking help for "wanted to get some sleep" and "to stop the voices" which started after he stopped drinking alcohol five days prior. On arrival he also disclosed a suicide attempt via ingestion of about 30 tabs of Advil about 4 hours prior to arrival. He was admitted medically due to symptoms concerning for acute alcohol withdrawal. Today he reports resolution of the auditory hallucinations stating he has experienced a pattern of hearing AH after he stops drinking and typically the voices go away about 3-5 days after he stops drinking once his sleep improves and when he stops vomiting. The voices were internal and external and about 8 voices talking amongst themselves telling him they were going to kill him or celeste t he would . The voices were so vivid he recalls going into the hallway of his apartment because he was sure people were out there talking. He denies having any visual hallucinations. He is relieved the voices have gone away and glad that he's been sleeping since coming to the hospital. States he tapered himself off alcohol five days ago but "even with that I felt awful" and about two days after stopping developed the voices. He's been drinking for the last 16 years with longest period of sobriety of one month. Recently had been drinking varying amounts but typically 6 tall cans of hard seltzer daily throughout the day. He had to drink on awakening and throughout the day to avoid withdrawal side effects. States he hasn't eaten much in the last months because "I had no appetite when I drink a lot". Had been getting all of his calories from the alcohol. Denies backouts but multiple social and legal consequences from alcohol in the past and recently lost his job due to missing work and drinking at work. History of DUI and charges for public drunkenness and verbal alterations in the past. He's never been to residential treatment. Tried one dose of naltrexone in the past. No other medication assisted therapy, IOP or AA involvement. In discussing his psychiatric symptoms he denies any recent depression or anxiety though reports significant baseline irritability which he self-treats by drinking. He likes that alcohol "feel more free and not caring", "helps me sleep" and "makes it so I don't get angry when people talk to me like if they run into me on the street and say hi". He states he decided to the Advil fairly impulsively to stop the voices and believed it could kill him by causing a heart attack. He denies current SI and is "very glad" to be alive. He's thinking about moving to [place] to look for a new job. Has noticeable cuts on his forearm which he states were from a while ago and "just for fun to see myself bleed". Psychiatric history notable for two prior inpt admissions (~2 yrs ago in [facility] and ~3-4 yrs ago in [place]) both after he stopped drinking and developed AH similar to this presentation. He has not taken any psychiatric medications in the last year. Previously was prescribed lexapro, fluoxetine, olanzapine and abilify at various times (mostly during inpt admissions). Reports one prior suicide attempt via cutting wrist about 5 years ago. Has been diagnosed with bipolar disorder in the past. Endorses hx of episodes of ronny of elevated mood, decreased need for sleep, increased spending of money but never requiring inpt hospitalization or raising concerns from friends/family or legal consequences. Denies any hx of psychosis except when withdrawing from alcohol and when he used crystal meth. Denies any hx of eating disorder. He's currently renting a room in [employer]. 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 No access to guns. Has a girlfriend who is supportive. Plans to move to [place] soon. Allergies Allergy/AdvReac Type Severity Reaction Status Date / Time No Known Allergies Allergy Unverified 07/15/22 08:24 Home Medications Medication Instructions Recorded Confirmed Type amoxicillin 875 mg-potassium 1 tab PO BID #20 tabs 07/15/22 Rx clavulanate 125 mg tablet Patient History Medical History Alcohol abuse Surgical History No significant past surgical history Social History Smoking Status: Current every day smoker Tobacco Type: Cigarettes Hx Alcohol Use: Yes Alcohol type: beer Alcohol type Comment: hard seltzers Hx Substance Use: Yes Non-Prescribed Medications: Crack / Cocaine and Methamphetamines Preferred Language: Cymro Communication Ability: Effective Machine Feeder Raw Stock Required: No Beliefs That Will Affect Care: None Current Living Situation: Alone Feels Safe at Home: Yes Physical Exam Psychiatric: Orientation: alert and oriented x 3 Apperance: appropriately dressed and appropriately groomed Eye Contact: + fair eye contact Motor Behavior: no abnormal motor movements Speech: normal rate/rhythm/volume of speech (soft) Affect: + constricted affect Mood: + depressed mood Thought Process: goal directed thought process Thought Content: reality based without delusions Suicidal Thoughts: denies suicidal thoughts (but attempt prior to admission) Homicidal Thoughts: denies homicidal thoughts Hallucinations: no auditory hallucinations (had been experiencing but resolved now) and no visual hallucinations Cognition: attention grossly intact and language grossly intact Estimated Intelligence: consistent with education level Insight: + limited insight Judgment: + limited judgement Vital Signs (Past 24 Hours): Last Vital Signs Temp 36.4 C L 10/04/22 11:35 Pulse 86 10/04/22 11:35 Resp 20 10/04/22 11:35 BP 95/86 L 10/04/22 11:35 Pulse Ox 97 10/04/22 11:35 O2 Del Method 10/04/22 11:35 O2 Flow Rate 0 10/03/22 08:03 Review of Systems All systems reviewed & are unremarkable except as noted in HPI & below (diarrhea) Results & Data (PSY) Medications Administered Hydroxyzine HCl (Hydroxyzine Hcl 25 Mg Tab) 25 mg PO Q6H PRN PRN Reason: Anxiety Stop: 11/03/22 09:45 Last Admin: 10/04/22 10:10 Dose: 25 mg Documented By: MARTHA Thiamine HCl 100 mg/ Syringe 10 mls @ 2 mls[facility] Stop: 11/03/22 08:59 Last Admin: 10/04/22 09:24 Dose: 2 mls/min Documented By: MARTHA Folic Acid 1 mg/ Syringe 10 mls @ 5 mls/min IV QAM [facility] Stop: 11/03/22 08:59 Last Admin: 10/04/22 09:24 Dose: 5 mls/min Documented By: MARTHA Potassium Chloride/Sodium Chloride (1/2 Nss + 20meq Kcl 1000ml) 20 meq in 1,000 mls @ 70 mls/hr IV .[id number] [facility]; Protocol Stop: 11/02/22 18:14 Last Admin: 10/04/22 09:23 Dose: 70 mls/hr Documented By: Infusion: 10/04/22 09:23 Dose: 70 mls/hr Documented By: Admin: 10/03/22 20:04 Dose: 70 mls/hr Documented By: JUAN M Lorazepam (Lorazepam 2 Mg/1 Ml Vial) 2 mg IV UD PRN; Protocol PRN Reason: EtOH Withdrawal AWSS Score 8,9 Stop: 11/02/22 13:45 Last Admin: 10/03/22 22:29 Dose: 2 mg Documented By: JUAN M Pantoprazole Sodium (Pantoprazole 40 Mg Tab) 40 mg PO BID [facility] Stop: 11/02/22 13:45 Last Admin: 10/04/22 09:24 Dose: 40 mg Documented By: Admin: 10/03/22 22:37 Dose: 40 mg Documented By: JUAN M Admin: 10/03/22 14:52 Dose: 40 mg Documented By: [id number] Coding Level of Care Code INP/OBS CONSULT LVL 4, 60 MIN Diagnoses Alcohol use disorder, severe, dependence F10.20 Suicide attempt by drug overdose T50.902A Self-harming behavior Unspecified mood [affective] disorder F39 Time Spent (min) 65
[2022-10-04 13:44] LABS: Calcium 9.6 mg/dl (8.5-10.1); Est GFR (African American) 131.5 ml/min; Est GFR (Non-African American) 113.4 ml/min; Potassium 3.6 mmol/L (3.5-5.1)
[2022-10-04] MEDS ORDERED: SIMETHICONE 40 MG/0.6 ML 30ML PO ONE (20:27)
[2022-10-04] MEDS ORDERED: LOPERAMIDE HCL 2 MG CAP PO STA (20:27)
[2022-10-04] MEDS ORDERED: SIMETHICONE 80 MG CHEW PO ONE (21:15)
--- NOTE | 2022-10-05 07:09 | Progress Note ---
Date of Service October 05, 2022 Assessment & Plan (1) Overdose: Plan: Mr. Tristin Arechiga is a 37 year old male with a PMHx of anxiety, panic attacks, alcohol use disorder, depression, self injurious behavior, and prior suicide attempts who presented to the ED on 10/03/22 for concerns of intentional overdose. The patient states that he took 30 Advil tablets at 4:30 AM on 10/03/22 with the intention to end his life. He has been experiencing auditory hallucinations for the past 5 days, in addition to difficulty sleepy. -Intentional Overdose, Ibuprofen * Improving, but not yet medically stable. Will continue to trend lab work at 4 PM. Vital signs stable. Blood pressure 117/78. * 10/05/22: Hemoglobin 12.4 this morning, down from 13.3 (10/04/22). Decrease may be a result of hemodilution from NSS. Will discontinue fluids and repeat CBC around 4 PM. * 10/04/22: Stool sample positive for blood. Continue to Hemoccult all stools. * 10/03/22: Drug screen, acetaminophen level, and salicylate level reassuring. * Will continue supportive care, protonix, oral thiamine, oral folic acid, and oral potassium. * Follow up with GI outpatient. -Transaminitis * Most likely secondary to alcohol use, given thrombocytopenia. Acute overdose may have played a role in elevated liver enzymes. * 10/05/22: Bilirubin 0.8, AST: 163, ALT: 190 * 10/04/22: US obtained due to new onset of elevated liver enzymes. Results from showed: Hepatomegaly with hepatic steatosis. Unremarkable gallbladder. No bi liary ductal dilation. Bilirubin down to 1.3, INR at 1.0. * 10/03/22: Bilirubin at 2.0, INR 1.1 * Will continue to monitor. -Acute hypokalemia, resolving * 10/05/22: Potassium 3.3. Likely iatrogenic etiology from fluid replacement. Discontinuing NSS and adding PO potassium replacement. * Patient is not currently endorsing chest pain, shortness of breath, or palpitations. Will continue to monitor blood pressure. * Admitted to telemetry. [facility] once hypokalemia resolves. -Thrombocytopenia, resolving * Most likely chronic due to alcohol use disorder, other drug use, or acute due to overdose. * 10/05/22: Platelet count - 98. * Will continue to monitor with CBCs. -Acute hyponatremia, resolved * Etiology unclear at this time. Likely due to poor intake. * 10/05/22: Sodium 139. -Auditory Hallucinations, depression, suicidality * Patient stated that he has a history of bipolar disorder. Patient does not endorse auditory and visual hallucinations, or SI/HI. * Continue Suicide precautions: 1:1 * Consulted [facility]. Will appreciate consult. If CBC returns WNL after 4 pm, will alert psych that he is medically stable. -Insomnia, resolving * Patient was able to sleep well last night on hydroxyzine 25 mg. FEN: Discontinuing IV fluids. Adding oral potassium. Continue supportive care and Protonix. Regular diet. Code status:Full code DVT ppx:SCD Consults: [facility] Dispo: Telemetry. Transfer to inpatient psych once medically stable. Admission and Anticipated Discharge Date Admission Date: October 03, 2022 Supervising Physician Co-Signing Physician Notes Medical Student Supervision Note: I was personally present during medical student patient encounter and independently interviewed and examined the patient and verified the harris history and physical, reviewed labs and image studies, discussed the case with Danielle Lara and agree with the findings and care plan. No new concerns. No abdominal or chest pain. o/e- comfortable, sitting upright. Heart - regular rate/rhythm. No respiratory distress. Anemia with heme occult positive stool - in setting of intentional nsaid overdose. No sign of overt GI bleed. -will recheck h/h later today. If stable - will be cleared from medicine standpoint. -to continue PPI Transaminitis- sec to alcohol use- improving D/c IVF Subjective Mr. Tristin Arechiga is a 37 year old male with a PMHx of anxiety, panic attacks, a lcohol use disorder, depression, self injurious behavior, and prior suicide attempts who presented to the ED on 10/03/22 for concerns of intentional overdose. The patient states that he took 30 Advil tablets at 4:30 AM on 10/03/22 with the intention to end his life. He reports that he hasn't been eating or sleeping well for the past 7 days. He states that he has been mostly only drinking alcohol, water, and smoking during this time. For three days prior to presenting to the ED, he reported vomiting due to trying to taper his alcohol consumption. Since he stopped drinking 7 days ago, Mr. Arechiga mentioned that he has been unable to sleep for more than 1-2 hours a night and has been hearing voices. He states that he can't hear the voices when he is drinking and that they only appear when he stops. There are 8 voices that are both male and female who talk about " and murder." They talk to each other about hurting and killing him, but do not talk to him directly. He states that he can only hear the voices and can't see the people talking. The voices are "worse at night" and he describes them as "annoying." He reports that they sound like they are sometimes directly in front of him and other times coming from in his head. Mr. Arechiga states that when he drinks alcohol, he typically drinks 5-6 "tall" hard seltzers. He has been drinking for 16 years and his longest period of sobriety has been for 1 month. He drinks alcohol to help him sleep, "feel more free," and be more sociable. He does not have a history of withdrawal seizures. He currently smokes cigarettes. He reported using cocaine and methamphetamine two years ago, but is not currently using either. He does not report using marijuana or a vape. Mr. Arechiga states that he has been hospitalized twice in the past: 2 years ago in [place] and 4 years ago in [place], both for concerns of hearing voices and difficulty sleeping. He stated that in one of those instances, he attempted suicide through self harming, but later mentioned that the self harm scars on his arms were from the last month and he did it "for fun." There were no acute updates over night and the patient has no concerns. Vital signs have been stable, blood pressure at 117/78. He was able to sleep well. No vomiting, dizziness, abdominal pain, chest pain, shortness of breath, or leg pain. His most recent bowel movement today was of normal color and consistency without blood, mucus, or other abnormalities. He has not have any auditory hallucinations since since his first night in the hospital. Review of Systems Review of Systems: See HPI, otherwise noncontributory. Physical Exam Physical Exam: Constitutional: No acute distress. On his phone with 1-on-1 in the room. HEENT: NCAT, no conjunctival injection. No sclera icterus appreciated. CV: Regular rate and rhythm, no murmur appreciated, extremities well-perfused, no LE edema. Resp: CTABL, no wheezes/rales/rhonchi appreciated,no increased work of breathing. GI: Normal bowel sounds. Soft, nondistended, no tenderness to palpation in the epigastric region. MSK: No gross deformities appreciated. No calf tenderness. Skin: Warm, dry, no rash appreciated. Dark brown birthmark noted in the upper right abdomen. Has tattoos on hands and biceps bilaterally. Well-healed scars present on left forearm. Neuro: Alert, oriented x 3, no focal neurologic deficit appreciated. Mental Status Exam Appearance: Dressed in blue scrubs. Mood: "Good" Affect: Congruent. Intensity is restricted and blunted. Reactive and responsive. Speech: Normal rate and rhythm. Normal volume, slightly monotone. Behavior: Calm and cooperative. Appropriate eye contact. Intermittent lip smacking, decreased from yesterday. Runs left hand through hair almost continuously. Thought Process: Clear, easy to follow, logical. No word salad. No delusions were elicited. Thought Content: Negative SI/HI. Interested in discussing the process of his treatment moving forward. Perceptions: Denies auditory hallucinations and visual hallucinations. Language: Fluent Insight: Fair Results & Data ([facility]) Vital Signs (Past 12 Hours) Vital Signs Temp Pulse Pulse Resp BP Pulse Ox O2 Del Method 10/05/22 07:01 36.8 C 83 17 117/78 100 Room Air 10/05/22 03:56 36.8 C 84 18 123/83 98 Room Air 10/04/22 23:48 85 10/04/22 22:10 37 C 93 H 18 118/76 98 Room Air 10/04/22 20:15 37.2 C 87 22 111/77 98 Room Air Laboratory Results Laboratory Results WBC 3.04 K/ul (4.8-10.8) L 10/05/22 07:26 RBC 3.47 M/uL (4.70-6.10) L 10/05/22 07:26 Hgb 12.4 g/dl (14.0-18.0) L 10/05/22 07:26 Hct 34.2 % (42.0-52.0) L 10/05/22 07:26 MCV 98.6 fL (80.0-100.0) 10/05/22 07:26 MCH 35.7 pg (25.0-34.0) H 10/05/22 07:26 MCHC 36.3 g/dL (32.0-36.0) H 10/05/22 07: RDW Std Deviation 47.7 fL (36.4-46.3) H 10/05/22 07: RDW Coeff of Juan 13.2 % (11.5-14.5) 10/05/22 07:26 Plt Count 98 K/uL (130-400) L 10/05/22 07: MPV 12.6 fL (9.4-12.4) H 10/05/22 07:26 Immature Gran % (Auto) 0.0 % 10/04/22 05:42 Neut % (Auto) 54.7 % 10/04/22 05:42 Lymph % (Auto) 30.7 % 10/04/22 05:42 [place] % (Auto) 14.1 % 10/04/22 05:42 Eos % (Auto) 0.0 % 10/04/22 05:42 Baso % (Auto) 0.5 % 10/04/22 05:42 Neut # (Auto) 1.05 K/uL (1.40-6.50) L 10/04/22 05:42 Lymph # (Auto) 0.59 K/uL (1.2-3.4) L 10/04/22 05:42 [place] # (Auto) 0.27 K/uL (0.11-0.59) 10/04/22 05:42 Eos # (Auto) 0.00 K/uL (0-0.50) 10/04/22 05:42 Baso # (Auto) 0.01 K/uL (0-0.2) 10/04/22 05:42 Immature Gran # (Auto) 0.00 K/uL (0.01-0.20) L 10/04/22 05:42 Giant Platelets 1+ 10/04/22 05:42 RBC Morphology Unremarkable 10/03/22 08:40 Ovalocytes 1+ 10/04/22 05:42 PT 10.4 Seconds (9.0-12.0) 10/04/22 05:42 INR 1.0 (0.9-1.1) 10/04/22 05:42 Sodium 139 mmol/L (136-145) 10/05/22 07:26 Potassium 3.3 mmol/L (3.5-5.1) L 10/05/22 07:26 Chloride 103 mmol/L (98-107) 10/05/22 07:26 Carbon Dioxide 29 mmol/L (21-32) 10/05/22 07:26 Anion Gap 7 (3-11) 10/05/22 07:26 BUN 6 mg/dl (6-23) 10/05/22 07:26 Creatinine 0.71 mg/dl (0.6-1.4) 10/05/22 07:26 Est Cr Clr Drug Dosing 141.9 ml/min 10/05/22 07:26 Est GFR ( Amer) 140.9 ml/min 10/05/22 07:26 Est GFR (Non-Af Amer) 121.6 ml/min 10/05/22 07:26 BUN/Creatinine Ratio 8.5 (10-20) L 10/05/22 07:26 Glucose 118 mg/dl (70-99(Fasting)) H 10/05/22 07:26 Calcium 9.2 mg/dl (8.5-10.1) 10/05/22 07:26 Magnesium 1.5 mg/dl (1.7-2.4) L 10/05/22 07:26 Total Bilirubin 0.8 mg/dl (0.2-1.0) D 10/05/22 07:26 AST 163 U/L (13-39) H 10/05/22 07:26 ALT 190 U/L (7-52) H 10/05/22 07:26 Alkaline Phosphatase 55 U/L (34-104) 10/05/22 07:26 Total Protein 6.6 gm/dl (6.0-8.3) 10/05/22 07:26 Albumin 3.9 gm/dl (3.4-5.0) 10/05/22 07:26 Globulin 2.7 gm/dl (2.5-4.0) 10/05/22 07:26 Albumin/Globulin Ratio 1.4 (0.9-2) 10/05/22 07:26 TSH 1.243 uIu/ml (0.300-4.500) 10/03/22 08:40 Urine Color [place] 10/03/22 08:00 Urine Appearance Turbid (Clear) A 10/03/22 08:00 Urine pH 6.5 (4.5-7.5) 10/03/22 08:00 Ur Specific [place] 1.026 (1.000-1.030) 10/03/22 08:00 Urine Protein 3+ (Negative) H 10/03/22 08:00 Urine Glucose (UA) Negative (Negative) 10/03/22 08:00 Urine Ketones 1+ (Negative) H 10/03/22 08:00 Urine Blood Negative (Negative) 10/03/22 08:00 Urine Nitrite Positive (Negative) A 10/03/22 08:00 Urine Bilirubin 2+ (Negative) H 10/03/22 08:00 Urine Urobilinogen Negative (Negative) 10/03/22 08:00 Ur Leukocyte Esterase 1+ (Negative) H 10/03/22 08:00 Urine WBC (Auto) 1-5 /hpf (0-5) 10/03/22 08:00 Urine RBC (Auto) 0-4 /hpf (0-4) 10/03/22 08:00 U Hyaline Cast (Auto) 1-5 /lpf (0-5) 10/03/22 08:00 U Epithel Cells (Auto) 5-10 /lpf (0-5) H 10/03/22 08:00 Urine Bacteria (Auto) Negative (Negative) 10/03/22 08:00 Urine Crystals Not Reportable 10/03/22 08:00 Amorphous Sediment Present (None Prsent) A 10/03/22 08:00 Stool Occult Bld Scrn Positive (Negative) A 10/04/22 18:10 Salicylates < 3.0 mg/dl (3.0-30) L 10/03/22 08:40 Urine Opiates Screen Neg (Neg) 10/03/22 08:00 Ur Methadone, Qual Neg (Neg) 10/03/22 08:00 Acetaminophen < 3 ug/ml (10-30) L 10/03/22 14:13 Urine Barbiturates Neg (Neg) 10/03/22 08:00 Ur Phencyclidine (PCP) Neg (Neg) 10/03/22 08:00 U Amphetamin/Meth Scrn Neg (Neg) 10/03/22 08:00 MDMA (Ecstasy) Screen Neg (Neg) 10/03/22 08:00 U Benzodiazepines Scrn Neg (Neg) 10/03/22 08:00 Ur Cocaine Metabolite Neg (Neg) 10/03/22 08:00 U Marijuana (THC) Screen Neg (Neg) 10/03/22 08:00 Ethyl Alcohol mg/dL < 10.0 mg/dl (<10.0) 10/03/22 08:40 SARS-CoV-2, RNA, NAAT NEGATIVE (NEGATIVE) 10/03/22 08:41 Impressions Liver Ultrasound 10/04/22 09:00 ABDOMINAL ULTRASOUND, RIGHT UPPER QUADRANT HISTORY: Acutely elevated LFTs Elevated AST, ALT, and bili. COMPARISON: None. FINDINGS: Pancreas: The pancreas demonstrates a normal echotexture. Liver: Liver measures 21 cm in length and demonstrates increased echogenicity. No hepatic mass identified. Gallbladder: No gallbladder wall thickening. No gallstones. CBD: 0.4 cm Right kidney: No hydronephrosis. IMPRESSION: 1. Hepatomegaly with hepatic steatosis. 2. Unremarkable gallbladder. 3. No biliary ductal dilation. ACT 112: Negative or not required by law. Electronically signed by: Mustapha Miller M.D. 10/04/2022 9:21 AM Medications Administered Current Inpatient Medications Folic Acid (Folic Acid 1 Mg Tab) 1 mg PO QAM [facility] Stop: 11/04/22 08:59 Last Admin: 10/05/22 07:58 Dose: 1 mg Hydroxyzine HCl (Hydroxyzine Hcl 25 Mg Tab) 25 mg PO Q6H PRN PRN Reason: Anxiety Stop: 11/03/22 09:45 Last Admin: 10/04/22 21:50 Dose: 25 mg Magnesium Sulfate/Dextrose (Magnesium Sulfate / D5w) 1 gm in 100 mls @ 50 mls/hr IV Q2H [facility] Stop: 10/05/22 17:59 Last Admin: 10/05/22 11:59 Dose: 50 mls/hr Lorazepam (Lorazepam 2 Mg/1 Ml Vial) 1 mg IV UD PRN; Protocol PRN Reason: EtOH Withdrawal AWSS Score 6,7 Stop: 11/02/22 13:45 Lorazepam (Lorazepam 2 Mg/1 Ml Vial) 2 mg IV UD PRN; Protocol PRN Reason: EtOH Withdrawal AWSS Score 8,9 Stop: 11/02/22 13:45 Last Admin: 10/03/22 22:29 Dose: 2 mg Lorazepam (Lorazepam 2 Mg/1 Ml Vial) 3 mg IV ONCE PRN; Protocol PRN Reason: EtOH Withdrawal AWSS Score 10+ Pantoprazole Sodium (Pantoprazole 40 Mg Tab) 40 mg PO BID [facility] Stop: 11/02/22 13:45 Last Admin: 10/05/22 07:58 Dose: 40 mg Thiamine HCl (Thiamine Hcl 100 Mg Tab) [facility] Stop: 11/04/22 08:59 Last Admin: 10/05/22 07:58 Dose: 100 mg
[2022-10-05] MEDS: FOLIC ACID 1 MG TAB PO SCH (07:58)
[2022-10-05] MEDS: PANTOprazole 40 MG TAB PO SCH ×2 (07:58→20:55)
[2022-10-05] MEDS: THIAMINE HCL 100 MG TAB PO SCH (07:58)
[2022-10-05 08:17] LABS: Hematocrit (blood only) 34.2 % (42.0-52.0); Hemoglobin 12.4 g/dl (14.0-18.0); Mean Corpuscular Hemoglobin 35.7 pg (25.0-34.0); Mean Corpuscular Hgb Conc 36.3 g/dL (32.0-36.0); Mean Corpuscular Volume 98.6 fL (80.0-100.0); Mean Platelet Volume 12.6 fL (9.4-12.4); Platelet Count 98 K/uL (130-400); RDW Coefficient of Variation 13.2 % (11.5-14.5); RDW Standard Deviation 47.7 fL (36.4-46.3); Red Blood Count 3.47 M/uL (4.70-6.10); White Blood Count 3.04 K/ul (4.8-10.8)
[2022-10-05 09:36] LABS: Albumin Globulin Ratio 1.4 (0.9-2); Albumin Level 3.9 gm/dl (3.4-5.0); BUN Creatinine Ratio 8.5 (10-20); Bilirubin,Total 0.8 mg/dl (0.2-1.0); Calcium 9.2 mg/dl (8.5-10.1); Creatinine Clr Calc Pharmacy 141.9 ml/min; Est GFR (African American) 140.9 ml/min; Est GFR (Non-African American) 121.6 ml/min; Globulin 2.7 gm/dl (2.5-4.0); Magnesium 1.5 mg/dl (1.7-2.4); Potassium 3.3 mmol/L (3.5-5.1); Total Protein 6.6 gm/dl (6.0-8.3)
[2022-10-05] MEDS ORDERED: POTASSIUM CHLORIDE CRTAB 20 MEQ TABCR PO ONE (10:00)
[2022-10-05] MEDS: MAGNESIUM SULFATE / D5W 1 GM/100 ML BAG IV SCH ×4 (10:07→15:55)
[2022-10-05] MEDS ORDERED: MAGNESIUM SULFATE / D5W 1 GM/100 ML BAG IV SCH (11:15)
[2022-10-05 17:02] LABS: Hematocrit (blood only) 36.6 % (42.0-52.0); Hemoglobin 13.1 g/dl (14.0-18.0); Mean Corpuscular Hemoglobin 35.8 pg (25.0-34.0); Mean Corpuscular Hgb Conc 35.8 g/dL (32.0-36.0); Mean Platelet Volume 11.4 fL (9.4-12.4); Platelet Count 119 K/uL (130-400); RDW Coefficient of Variation 13.3 % (11.5-14.5); Red Blood Count 3.66 M/uL (4.70-6.10); White Blood Count 3.81 K/ul (4.8-10.8)
[2022-10-05] MEDS: hydrOXYzine HCl 25 MG TAB PO PRN (21:15)
[2022-10-06 07:03] LABS: Hematocrit (blood only) 38.1 % (42.0-52.0); Hemoglobin 13.7 g/dl (14.0-18.0); Mean Corpuscular Hemoglobin 35.7 pg (25.0-34.0); Mean Corpuscular Volume 99.2 fL (80.0-100.0); Mean Platelet Volume 11.9 fL (9.4-12.4); Platelet Count 136 K/uL (130-400); RDW Coefficient of Variation 13.2 % (11.5-14.5); RDW Standard Deviation 47.9 fL (36.4-46.3); Red Blood Count 3.84 M/uL (4.70-6.10); White Blood Count 3.67 K/ul (4.8-10.8)
[2022-10-06 07:04] LABS: Albumin Globulin Ratio 1.4 (0.9-2); Albumin Level 4.3 gm/dl (3.4-5.0); BUN Creatinine Ratio 12.5 (10-20); Bilirubin,Total 0.6 mg/dl (0.2-1.0); Calcium 9.5 mg/dl (8.5-10.1); Creatinine Clr Calc Pharmacy 127.8 ml/min; Est GFR (African American) 134.1 ml/min; Est GFR (Non-African American) 115.7 ml/min; Magnesium 2.3 mg/dl (1.7-2.4); Potassium 3.5 mmol/L (3.5-5.1); Total Protein 7.3 gm/dl (6.0-8.3)
[2022-10-06] MEDS: THIAMINE HCL 100 MG TAB PO SCH (07:20)
[2022-10-06] MEDS: FOLIC ACID 1 MG TAB PO SCH (07:20)
[2022-10-06] MEDS: PANTOprazole 40 MG TAB PO SCH (07:20)
--- NOTE | 2022-10-06 09:46 | Hospitalist Progress Note ---
Date of Service October 06, 2022 Assessment & Plan (1) Overdose: Plan: Mr. Tristin Arechiga is a 37 year old male with a PMHx of anxiety, panic attacks, alcohol use disorder, depression, self injurious behavior, and prior suicide attempts who presented to the ED on 10/03/22 for concerns of intentional overdose. The patient states that he took 30 Advil tablets at 4:30 AM on 10/03/22 with the intention to end his life. He has been experiencing auditory hallucinations for the past 5 days, in addition to difficulty sleepy. -Intentional Overdose, Ibuprofen * Improving, but not yet medically stable. Will continue to trend lab work at 4 PM. Vital signs stable. Blood pressure 117/78. * 10/05/22: Hemoglobin 12.4 this morning, down from 13.3 (10/04/22). Decrease may be a result of hemodilution from NSS. Will discontinue fluids and repeat CBC around 4 PM. * 10/04/22: Stool sample positive for blood. Continue to Hemoccult all stools. * 10/03/22: Drug screen, acetaminophen level, and salicylate level reassuring. * Will continue supportive care, protonix, oral thiamine, oral folic acid, and oral potassium. * Follow up with GI outpatient. -Transaminitis * Most likely secondary to alcohol use, given thrombocytopenia. Acute overdose may have played a role in elevated liver enzymes. * 10/05/22: Bilirubin 0.8, AST: 163, ALT: 190 * 10/04/22: US obtained due to new onset of elevated liver enzymes. Results from showed: Hepatomegaly with hepatic steatosis. Unremarkable gallbladder. No bi liary ductal dilation. Bilirubin down to 1.3, INR at 1.0. * 10/03/22: Bilirubin at 2.0, INR 1.1 * Will continue to monitor. -Acute hypokalemia, resolving * 10/05/22: Potassium 3.3. Likely iatrogenic etiology from fluid replacement. Discontinuing NSS and adding PO potassium replacement. * Patient is not currently endorsing chest pain, shortness of breath, or palpitations. Will continue to monitor blood pressure. * Admitted to telemetry. Will admit to [facility] once hypokalemia resolves. -Thrombocytopenia, resolving * Most likely chronic due to alcohol use disorder, other drug use, or acute due to overdose. * 10/05/22: Platelet count - 98. * Will continue to monitor with CBCs. -Acute hyponatremia, resolved * Etiology unclear at this time. Likely due to poor intake. * 10/05/22: Sodium 139. -Auditory Hallucinations, depression, suicidality * Patient stated that he has a history of bipolar disorder. Patient does not endorse auditory and visual hallucinations, or SI/HI. * Continue Suicide precautions: 1:1 * Consulted [facility]. Will appreciate consult. If CBC returns WNL after 4 pm, will alert psych that he is medically stable. -Insomnia, resolving * Patient was able to sleep well last night on hydroxyzine 25 mg. FEN: Discontinuing IV fluids. Adding oral potassium. Continue supportive care and Protonix. Regular diet. Code status:Full code DVT ppx:SCD Consults: [facility] Behavioral Health Dispo: Telemetry. Transfer to inpatient psych once medically stable. Admission and Anticipated Discharge Date Admission Date: October 03, 2022 Subjective Pt is a 37 year old male with a PMHx of anxiety, panic attacks, alcohol use disorder, depression, self injurious behavior, and prior suicide attempts who presented to the ED on 10/03/22 for concerns of intentional overdose. The patient states that he took 30 Advil tablets at 4:30 AM on 10/03/22 with the intention to end his life. Pt seen at bedside this AM. He reports that he feels well. He does not want to receive inpatient treatment for his psychiatric condition or alcohol use. He states he needs to go home and get back to work because he is "losing money every day that I am here." He said the original reason he came to the hospital was to receive some medications and get some sleep because he hadn't slept for 5 days. Pt denies thoughts to harm himself or anyone else. He is no longer experiencing any auditory hallucinations. He denies chest pain, abdominal pain, leg pains, and bloody stools. Review of Systems Review of Systems: All systems reviewed & are unremarkable except as noted in HPI & below Physical Exam Constitutional: NAD. Vitals WNL. Eyes: no conjunctival abnormality Respiratory: CTA bilaterally. No rhonchi, wheezing, or crackles. Non labored breathing. Cardiovascular: RRR. No murmur noted. No LL edema. Gastrointestinal (Abdomen): Nontender, +BS. No masses noted. Skin: no rashes, warm and dry Psychiatric: Alert. Mood and affect congruent. Results & Data Results & Data ([facility]) Vital Signs (Past 12 Hours) Vital Signs Temp Pulse Resp BP BP Pulse Ox O2 Del Method 10/06/22 06:52 36.9 C 75 18 116/75 100 Room Air 10/06/22 03:04 36.7 C 72 16 127/82 100 Room Air 10/05/22 22:43 36.7 C 80 16 121/81 98 Room Air Resident Activity Tracking Resident Involvement: Resident Care Provided Care Provided: Adult Hospital Medicine
--- NOTE | 2022-10-06 10:39 | Psychiatric Progress Note ---
Date of Service October 06, 2022 Impression / Recommendations Impression Tristin is a 37 yo admitted medically following an intentional impulsive overdose suicide attempt and complicated alcohol withdrawal with auditory hallucinations. 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 10/06/2022: Tristin is now medically stable and does not desire inpatient psychiatric nor residential substance use treatment. A 302 warrant was granted as he requested discharge this morning and I then evaluated him for 302 criteria. While he did have an impulsive suicide attempt prior to admission this was in the context of acute and severe alcohol withdrawal with suspected DT leading to auditory hallucinations and he voluntarily sought medical treatment for this. Since receiving medical treatment and becoming clinically sober he is now consistently denying any depression, denies SI, no episodes of self-harm, no evidence for ronny or psychosis, denies HI and is able to provide for all of his self-care needs. His affect is bright, his sleep is improved, appetite is improved, and there are no symptoms consistent with major depression or mixed mood episode. He is very future-oriented, can speak convincingly to many different reasons for living, participated fully with safety planning including doing an insightfully written safety plan, can speak to crisis resources and ways he would seek help if SI re-occurred in the future and most importantly plans to avoid alcohol use which is the most significant modifiable risk factor to reduce his acute and chronic risk of self-harm. Given this, his acute risk of self-harm is deemed to be low and he no longer meets 302 criteria. As of now there is no clear acute/imminent risk of harm to self however, based upon any relapse of alcohol use, the chronic risk may then transform into a period of acuity. Provided education and recommendations of treatment options and behavioral strategies including substance use resources and local mental health resources which can help to reduce their acute and chronic risk which they were receptive to trying as an outpatient with their current supports. Also discussed resources and ways to add additional protective factors and positive supports to their life to reduce elements of chronic risk. (1) Alcohol use disorder, severe, dependence: (2) Suicide attempt by drug overdose: (3) Self-harming behavior: (4) Unspecified mood [affective] disorder: Plan -302 warrant has been dispositioned as as on exam, the patient is not in need of emergency treatment because he is no longer experiencing SI and acute risk of self-harm is now low. They are no longer requiring 1-on-1 for psychiatric hold -He completed a safety plan -He was provided with local substance use and mental health resources Interval History Identifying Information 37 yo man with history of bipolar affective disorder and alcohol use admitted medically for complicated alcohol withdrawal and following suicide attempt. Psychiatry consulted for risk assessment and recommendations. Chief Complaint "The only reason I did that was because I was withdrawing and wasn't in my right state of mind, I would never do that now". Review of Systems Notes sleeping and eating Subjective Subjective Patient was seen & assessed and interval progress reviewed. This morning asking to be discharged and frustrated by 302 process. States he is no longer suicidal and feels safe discharging. Says he got his job back and his boss has invited him to live with his boss's relative to be a supportive place to live while he works on his sobreity. His girlfriend remains a good support. PLans to move to [place] once his girlfriend completes her degree in two months. Speaks to reasons for living including his "family, girlfriend, I want to work" and his long-term goals of getting back to work, "having a future and buying a house one day". He feels what happened during this period of alcohol withdrawal was so severe that he never wants to drink alcohol again. Denies any cravings. Not interested in residential tx or [facility] but feels he has a lot of sober supports and doesn't anticipate challenges to sobriety. 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 Denies any mood symptoms. Feels his sleep is much better. Describes that he could call 911 or would come to the ED if he developed SI in the future but he doesn't anticipate this will occur as "I'm pretty determined not to drink" and "that only happened because I wasn't in my right state of mind and was sleep deprived". Denies any other concerns. Physical Exam Psychiatric Orientation: alert and oriented x 3 Apperance: appropriately dressed and appropriately groomed Eye Contact: good eye contact Motor Behavior: no abnormal motor movements Speech: normal rate/rhythm/volume of speech Affect: euthymic affect Mood: no depressed mood and no anxious mood Thought Process: linear/logical thought process Thought Content: reality based without delusions Suicidal Thoughts: denies suicidal thoughts Homicidal Thoughts: denies homicidal thoughts Hallucinations: no auditory hallucinations and no visual hallucinations Cognition: recent memory grossly intact, remote memory grossly intact, attention grossly intact and language grossly intact Estimated Intelligence: consistent with education level Insight: + fair insight Judgment: + limited judgement Vital Signs (Past 24 Hours) Last Vital Signs Temp 36.9 C 10/06/22 06:52 Pulse 75 10/06/22 06:52 Resp 18 10/06/22 06:52 BP 116/75 10/06/22 06:52 Pulse Ox 100 10/06/22 06:52 O2 Del Method 10/06/22 06:52 O2 Flow Rate 0 10/03/22 08:03 Results & Data ([facility] [place]) Laboratory Results Laboratory Results - last 24 hr 10/05/22 10/06/22 10/06/22 15:46 06:02 06:02 WBC 3.81 L 3.67 L RBC 3.66 L 3.84 L Hgb 13.1 L 13.7 L Hct 36.6 L 38.1 L MCV 100.0 99.2 MCH 35.8 H 35.7 H MCHC 35.8 36.0 RDW Std Deviation 49.0 H 47.9 H RDW Coeff of Juan 13.3 13.2 Plt Count 119 L 136 MPV 11.4 11.9 Sodium 137 Potassium 3.5 Chloride 101 Carbon Dioxide 33 H Anion Gap 3 BUN 10 Creatinine 0.80 Est Cr Clr Drug Dosing 127.8 Est GFR ( Amer) 134.1 Est GFR (Non-Af Amer) 115.7 BUN/Creatinine Ratio 12.5 Glucose 129 H Calcium 9.5 Magnesium 2.3 Total Bilirubin 0.6 AST 171 H ALT 212 H Alkaline Phosphatase 62 Total Protein 7.3 Albumin 4.3 Globulin 3.0 Albumin/Globulin Ratio 1.4 Current Inpatient Medications Current Inpatient Medications: Current Inpatient Medications Folic Acid (Folic Acid 1 Mg Tab) 1 mg PO QAM TERRI Stop: 11/04/22 08:59 Last Admin: 10/06/22 07:20 Dose: 1 mg Hydroxyzine HCl (Hydroxyzine Hcl 25 Mg Tab) 25 mg PO Q6H PRN PRN Reason: Anxiety Stop: 11/03/22 09:45 Last Admin: 10/05/22 21:15 Dose: 25 mg Lorazepam (Lorazepam 2 Mg/1 Ml Vial) 1 mg IV UD PRN; Protocol PRN Reason: EtOH Withdrawal AWSS Score 6,7 Stop: 11/02/22 13:45 Lorazepam (Lorazepam 2 Mg/1 Ml Vial) 2 mg IV UD PRN; Protocol PRN Reason: EtOH Withdrawal AWSS Score 8,9 Stop: 11/02/22 13:45 Last Admin: 10/03/22 22:29 Dose: 2 mg Lorazepam (Lorazepam 2 Mg/1 Ml Vial) 3 mg IV ONCE PRN; Protocol PRN Reason: EtOH Withdrawal AWSS Score 10+ Pantoprazole Sodium (Pantoprazole 40 Mg Tab) 40 mg PO BID COUNTS INCLUDE 234 BEDS AT THE [facility] Stop: 11/02/22 13:45 Last Admin: 10/06/22 07:20 Dose: 40 mg Thiamine HCl (Thiamine Hcl 100 Mg Tab) 100 mg PO QAM COUNTS INCLUDE 234 BEDS AT THE [facility] Stop: 11/04/22 08:59 Last Admin: 10/06/22 07:20 Dose: 100 mg
--- NOTE | 2022-10-06 10:42 | Discharge Summary ---
Date of Service October 06, 2022 Admission HPI Per Admitting Provider Patient is a 37-year-old male who presents to the hospital for suicide attempt with ibuprofen overdose. Patient is from [place], who moved here a couple months ago for work. He recently got fired from his job, and early this morning around 4-4 30 a.m. patient states that he took 30+ Advil. He states that he has a history of suicide attempts, states he has been admitted to hospitals in different states approximately "50 times" for suicide. Patient also notes that he drinks alcohol in excess. Drinks about 10-12 mixed drinks in a day from tue up to . States that his last drink was 4 days ago. He also states that he is hearing voices in his head that are not his own voice, telling him that he is "a loser" and that he should "kill himself". Patient states that he only sometimes hears voices in his head, and states that they get worse when he is withdrawing from alcohol. He states that he has been on psychiatric meds in the past such as Abilify and Lexapro but he has stopped taking his medications approximately a year ago. Patient also admits to using meth in the past, last time being 1 year ago. Patient also states that he has not eaten in 30 days. When asked to expand on this he says that he maybe has snacks every once in a while but he has not "eaten in 30 days". In the ED, CBC showed thrombocytopenia. CMP were remarkable for a potassium of 2.4, sodium of 124, carbon dioxide of 35, AST of 248, ALT of 225, and a bilirubin of 2.0. Drug and alcohol toxicology was negative. Low salicylates at under 3.0 as well as low acetaminophen under 3.0. Patient was given activated charcoal which made him vomit and of note nurse states she did not see any pills in the vomit. When discussing CODE STATUS with patient patient initially states that he just wants to be left alone to . States that he does not want anything that will help him to live. Also talking to the patient, patient started to drift off and stated that he just went to sleep at this time. Was able to do a physical exam and to get information above, though unable to get a true review of systems Admission Exam Per Admitting Provider Constitutional: + disheveled, cooperative and + lethargi c Eyes: PERRL, conjunctivae normal, anicteric sclerae Respiratory: normal respiratory effort, lungs clear to auscultation Cardiovascular: RRR, no murmur, no edema Gastrointestinal (Abdomen): normal bowel sounds, soft, nontender, no hepatosplenomegaly Musculoskeletal: no cyanosis or clubbing, extremities motor strength 5/5 Skin: Hypertrophic scars on wrist and arm Psychiatric: Orientation: oriented x 3 Mood: + depressed mood Hallucinations: + auditory hallucinations Principal Diagnosis intentional drug overdose Discharge Exam Constitutional NAD. Vitals WNL. Eyes Anicteric sclerae, no conjunctival abnormality Respiratory CTA bilaterally. No rhonchi, wheezing, or crackles. Non labored breathing. Cardiovascular RRR. No murmur noted. No LE edema. Gastrointestinal (Abdomen) +BS. Non tender throughout. No masses noted. Psychiatric Alert. Mood and affect congruent. No suicidal or homicidal ideation. Discharge Data Allergies Allergy/AdvReac Type Severity Reaction Status Date / Time No Known Allergies Allergy Unverified 07/15/22 08:24 Consultations 10/03/22 10:03 ED Decision to Admit Stat 10/03/22 13:46 Consult Psychiatry Routine Ordered Studies 10/04/22 09:00 US liver Stat Liver Ultrasound 10/04/22 09:00 ABDOMINAL ULTRASOUND, RIGHT UPPER QUADRANT HISTORY: Acutely elevated LFTs Elevated AST, ALT, and bili. COMPARISON: None. FINDINGS: Pancreas: The pancreas demonstrates a normal echotexture. Liver: Liver measures 21 cm in length and demonstrates increased echogenicity. No hepatic mass identified. Gallbladder: No gallbladder wall thickening. No gallstones. CBD: 0.4 cm Right kidney: No hydronephrosis. IMPRESSION: 1. Hepatomegaly with hepatic steatosis. 2. Unremarkable gallbladder. 3. No biliary ductal dilation. ACT 112: Negative or not required by law. Electronically signed by: Mustapha Miller M.D. 10/04/2022 9:21 AM Hospital Course (1) Suicide attempt by drug overdose: (2) Transaminitis: (3) Acute hypokalemia: (4) Alcohol abuse: Plan Mr. Tristin Arechiga is a 37 year old male with a PMHx of anxiety, panic attacks, alcohol use disorder, depression, self injurious behavior, and prior suicide attempts who presented to the ED on 10/03/22 for concerns of intentional overdose. The patient states that he took 30 Advil tablets at 4:30 AM on 10/03/22 with the intention to end his life. He has been experiencing auditory hallucinations for the past 5 days, in addition to difficulty sleeping. Intentional Overdose w/ ibuprofen - upon admission, pt was endorsing auditory hallucinations and active thoughts to want to kill himself - pt was given activate charcoal in ER which induced vomiting - KENNETH protocol began; pt required 2mg ativan while hospitalized - over the course of the hospitalized, pt became more alert and talkative; he then endorsed resolution of the hallucinations and denied thoughts to want to harm himself stating he "only wanted some medications and sleep" - original plan was inpatient psych for tx w/ pt agreeable; however, day of discharge pt denied suicidal ideation and thoughts to harm himself (disqualifying him for a 302) - pt did complete a safety plan prior to d/c - local resources for substance use and mental health were also provided prior to d/c - pt would benefit from continued primary care/psychiatric care for diagnostic clarity concerning mental health conditions and subsequent treatment Positive hemeoccult stool in setting of nsaid overdose - concern for ulcer d/t epigastric pain and FOBT positive- however, by end of hospitalization pt denying any abdominal pain; h/h remained stable. - recommend outpatient GI follow up to ensure resolution/further studies if indicated Transaminitis - most likely elevated chronically secondary to alcohol use; however, acute overdose may have led to acute increase above baseline - AST/ALT upon admission 248/225, upon discharge 171/212 - RUQ US obtained revealed an enlarged liver w/ steatosis but no cirrhosis - PT/INR WNL - recommend treatment for alcohol use disorder; however, pt does not seem amenable to this right now Acute hypokalemia- resolved - most likely secondary to alcohol use - upon admission 2.4, received supplementation and K upon discharge 3.5 Thrombocytopenia- resolved - most likely d/t alcohol use disorder in addition to ibuprofen OD - 63 upon admission, improved to 136 upon discharge Acute hyponatremia- resolved - likely secondary to poor oral intake - pt treated w/ IV fluids - 129 upon admission, improved to 137 upon discharge FEN: regular diet Code status:Full code DVT ppx:Received SCD Dispo: home Total Time Total Time Spent Total Time Spent (In Minutes): as per attending attestation Discharge Plan Discharge Items Patient Disposition: Home - Self-Care Reason For Visit: DRUG OVERDOSE Discharge Diagnosis: intentional drug overdose Activity: Resume your previous activity Non-emergency contact: Primary Care Provider Call non-emergency contact if: you have any medication questions and your symptoms worsen Follow-up/Referrals: PCP,NO [Primary Care Provider] - Diet: Regular Addtl Attending Provider Instructions: You were admitted to the hospital for treatment after ingestion of a large amount of Advil in the setting of withdrawing from alcohol with the intent to end your life. You were found to have a low potassium along with elevated liver numbers. A liver ultrasound was performed which showed some fatty changes to your liver but no cirrhosis. You were treated with potassium and fluids. Your liver enzymes were still elevated upon discharge from the hospital. This may be your "baseline" due to alcohol use. It was recommended that you attend a drug/alcohol rehabilitation program along with hospitalization for psychiatric care. You refused both of these services at this time. It is recommended that you continue to consider attending a drug/alcohol rehab program. Please bring this discharge summary with you to your next office appointment so that your provider can review it at that time. Medications: Your medication list has been reviewed and reconciled upon discharge to ensure accuracy and continuity of care. An updated list of all your medications is included with your hospital discharge paperwork. Please review this list closely and make note of any changes to your medications. - No medications were added or changed. Follow up appointments: - Make a follow up appointment with your PCP within the next week. It is very important that you follow up with them shortly after discharge from the hospital. - Keep all of your follow up appointments as already scheduled. If you cannot make an appointment, notify your provider. CONTACT YOUR PRIMARY CARE PROVIDER if you experience any of the following: - Increased hallucinations - Significant changes in your mood (depressed, anxious) - Difficulty following your treatment plan - Difficulty taking any of your medications CALL 911 OR GO TO THE EMERGENCY DEPARTMENT if you experience any of the following: - Any thoughts to harm or kill yourself or anyone else - Sudden, severe abdominal pain or nausea/vomiting - Severe chest pain or chest pain that radiates to your jaw or arm - Sudden, severe shortness of breath or difficulty breathing Pending Studies at Discharge: No Stand-Alone Forms: [employer], Smoking Cessation Medications and DC Order Prescriptions: Discontinued amoxicillin-pot clavulanate 875-125 mg tablet 1 tab PO BID Qty: 20 0RF Discharge Orders: Discharge Order (Routine); Ordered 10/06/22 Ordered By: Rama Duff Admission Data Admit Date/Time: 10/03/22 12:22 Attending Provider: Deb Lozada Admit Provider: Venkat Neil Primary Care Provider: PCP,NO Other Providers: Billy Aguillon Erica K. ; Maura Webster ; Dom Raymond Other Interventions: Discharge Summary Assessment (RN) Last Done: 10/06/22 12:17 Supervising Physician Co-Signing Physician Notes Resident Physician Supervision Note: I independently interviewed and examined the patient and verified the harris history and physical, reviewed labs and image studies and agree with resident findings and care plan. Resident Activity Tracking Resident Involvement: Resident Care Provided Care Provided: Adult Hospital Medicine
== END 2022-10-06 13:24 | disposition home or self-care (01) | DRG 918 ==
LOC: ED 07:50 → SUATTDRO 12:22 → 2E 12:22

== ENCOUNTER 2022-11-02 21:30 | Inpatient (IN) ==
[2022-11-02] MEDS ORDERED: chlordiazePOXIDE HCl 25 MG CAP PO ONE (21:49)
[2022-11-02] MEDS ORDERED: levETIRAcetam 1,500 MG in 0.9 % SODIUM CHLORIDE 100 ML IV STA (21:49)
[2022-11-02] MEDS ORDERED: MULTI-VITAMIN INFUSION 10 ML, THIAMINE HCL 100 MG, FOLIC ACID 1 MG in SODIUM CHLORIDE 0... IV ONE (21:49)
[2022-11-02] MEDS ORDERED: Ativan IV Alcohol Withdrawal--Active Protocol IV PRN (21:49)
[2022-11-02] MEDS ORDERED: LORazepam 2 MG/1 ML VIAL IV PRN ×3 (21:49)
--- NOTE | 2022-11-02 21:56 | Emergency Department Note ---
Impression & Plan Alcohol withdrawal, Acute hyponatremia, Transaminitis, Seizure, Hypokalemia ED Provider Note NAME: CYNDI BRITO AGE: 37 SEX: M : 1985 ARRIVES VIA: Ambulance INFORMANT: [Patient][, ] ED PROVIDER(S): [Seng Spence MD] CHIEF COMPLAINT: Seizures, alcohol withdrawal MEDICAL DECISION MAKING: Patient presents due to concern for seizure x2 prior to arrival with associated alcohol withdrawal-like syndrome. The patient stopped drinking late Tuesday early Tuesday. Next Blood work was obtained IV was established. The patient was ordered 10 of Valium CIWA protocol 50 of Librium and 1500 of Keppra. Blood work was obtained in addition to CT of the head. Patient's blood work shows a white count 14.2 mild anemia hemoglobin of 13. Thrombocytopenia 125 patient does have hyponatremia 126 with hypokalemia at 2.6 and elevated bilirubin at 2.4. The patient's salicylate Tylenol alcohol negative. COVID-negative. The patient did require significant redirection as the patient had unhooked his IV several times. The patient did receive a total 20 mg IV of Valium in addition to his Librium and Keppra. The patient also did receive Ativan per CIWA protocol. The patient did have improvement in his symptoms. I did speak with the on-call hospitalist service and the patient was admitted to the medicine service. Critical Care: I have personally spent 65 minutes of critical care time in direct management of this patient. This includes bedside care, interpretation of diagnostic studies, and testing, discussion with consultants, patient, and family members, and other require inpatient management activities. This 65 minutes is in excess of all separately billable procedures. Prior /Outside records reviewed: I did review d/c summary from 10/06/22 for ibuprofen over thedose. Differential diagnosis: Alcohol intoxication, toxicologic, infection, hypoglycemia, electrolyte abnormalities, cardiac sources, intracerebral event, neurologic, trauma, as well as other pathologies. Diagnostics, as interpreted by me: ECG: [none] Cardiac monitoring: An order was placed for continuous cardiac monitoring. The monitor shows a rate of 130 with tachycardic and regular rhythm. [Patient was placed on pulse oximetry] Medical decision rules: [none] Imaging studies: See below HPI: Patient presents due to concern for alcohol withdrawal and associated seizures x2. The patient last drank late Tuesday early Tuesday. The patient does not have significant discomfort at this time other than tongue biting complains of some tongue pain. Patient denies any chest pains or shortness of breath. Patient states that he feels relatively well and only feels somewhat tremulous in his bilateral lower extremities. The patient denies any head or neck pain. No fevers or chills. Patient denies any drug or tobacco use. The patient has had prior history of alcohol abuse and has tried to stop drinking in the past to the point where he has had alcohol withdrawal associated seizures. PAST MEDICAL HISTORY: [See Below] PAST SURGICAL HISTORY: [See Below] SOCIAL HISTORY: [See Below] HOME MEDICATIONS: [See Below] ALLERGIES: [See Below] VITALS: [See Below] PHYSICAL EXAMINATION: GENERAL: Tremulous, wearing a mask. EYE EXAM: Normal conjunctiva. PERRL, no anisocoria and EOM's grossly intact w/o pain. Oropharynx: Tongue abrasion noted to the of the left lateral aspect of the tongue. NECK: Supple, no nuchal rigidity, no adenopathy, non-tender. No signs of meningismus. FROM of the neck with good chin to chest and neck extension. No stridor. LUNGS: Clear to auscultation. Normal chest wall mechanics. HEART: Tachycardic and regular, no MRG. ABDOMEN: Abdomen soft, non-tender, normo-active bowel sounds, no masses, no rebound or guarding. BACK: No CVA TTP. SKIN: No rashes and no bruising. UPPER EXTREMITIES: Upper extremities are grossly normal. LOWER EXTREMITIES: Grossly normal, no edema. Bilateral lower extremity tremors noted NEURO EXAM: A&O x3, cranial nerves II-XII grossly intact, normal speech, moves all 4 extremities. Past Med/Surg History Medical History Alcohol abuse Surgical History No significant past surgical history Social History Smoking Status: Current some day smoker Tobacco Type: E-cigarettes / Vaping Hx Alcohol Use: Yes Alcohol type: beer Alcohol type Comment: hard seltzers Hx Substance Use: Yes Non-Prescribed Medications: Crack / Cocaine and Methamphetamines Preferred Language: Yoruba Communication Ability: Effective [employer] Techn[employer] Required: No Beliefs That Will Affect Care: Spiritual Current Living Situation: Alone Feels Safe at Home: Yes Assistive Devices: None Allergies Allergies Allergy/AdvReac Type Severity Reaction Status Date / Time No Known Allergies Allergy Unverified 07/15/22 08:24 Home Meds Previous Rx's Medication Instructions Recorded chlordiazepoxide HCl 10 mg capsule 10 mg PO ONCE #1 cap 11/05/22 chlordiazepoxide HCl 25 mg capsule 25 mg PO Q8H #3 caps 11/05/22 folic acid 1 mg tablet 1 mg PO QAM 30 days #30 tabs 11/05/22 naltrexone 50 mg tablet 50 mg PO DAILY 30 days #30 tabs 11/05/22 thiamine HCl (vitamin B1) 100 mg 200 mg PO QAM 30 days #60 tabs 11/05/22 tablet Results & Data (ED) Vital Signs Vital Signs - 24 hr 11/02/22 21:39 11/02/22 22:01 11/02/22 23:48 Pulse Rate 146 H 149 H Pulse Rate [Left Finger] 120 H Pulse Rhythm Regular Pulse Strength Normal Respiratory Rate 22 14 Respiratory Effort / Characteristics Non-Labored Respiratory Depth Normal Respiratory Pattern Regular Blood Pressure 122/94 Blood Pressure [Right Arm] 98/84 L Blood Pressure Mean 103 Blood Pressure Mean [Right Arm] 88 Blood Pressure Position Lying Blood Pressure Position [Right Arm] Lying Pulse Oximetry 97 97 Oxygen Delivery Method Room Air Room Air Sepsis Recent Fever Within 48 Hours No Sepsis New/Unexplained Change in Mental Status No Sepsis Action Taken by Nursing No Action Required 11/03/22 00:48 Pulse Rate Pulse Rate [Left Finger] 121 H Pulse Rhythm Pulse Strength Respiratory Rate 18 Respiratory Effort / Characteristics Respiratory Depth Respiratory Pattern Blood Pressure Blood Pressure [Right Arm] 144/86 H Blood Pressure Mean Blood Pressure Mean [Right Arm] 105 Blood Pressure Position Blood Pressure Position [Right Arm] Pulse Oximetry 99 Oxygen Delivery Method Room Air Sepsis Recent Fever Within 48 Hours Sepsis New/Unexplained Change in Mental Status Sepsis Action Taken by Assisted Medications Current Medication List: was personally reviewed by me Laboratory Data Attestation: I reviewed the patient's lab results. 11/03/22 03:47 11/03/22 03:47 Lab Results 11/02/22 11/02/22 11/02/22 Range/Units 21:41 21:41 21:41 WBC 14.20 H (4.8-10.8) K/ul RBC 3.80 L (4.70-6.10) M/uL Hgb 13.0 L (14.0-18.0) g/dl Hct 35.0 L (42.0-52.0) % MCV 92.1 (80.0-100.0) fL MCH 34.2 H (25.0-34.0) pg MCHC 37.1 H (32.0-36.0) g/dL RDW Std Deviation 39.4 (36.4-46.3) fL RDW Coeff of Juan 11.8 (11.5-14.5) % Plt Count 125 L (130-400) K/uL MPV 12.3 (9.4-12.4) fL Immature Gran % (Auto) 1.1 % Neut % (Auto) 89.1 % Lymph % (Auto) 4.9 % Karnes % (Auto) 4.9 % Eos % (Auto) 0.0 % Baso % (Auto) 0.0 % Neut # (Auto) 12.65 H (1.40-6.50) K/uL Lymph # (Auto) 0.70 L (1.2-3.4) K/uL Karnes # (Auto) 0.70 H (0.11-0.59) K/uL Eos # (Auto) 0.00 (0-0.50) K/uL Baso # (Auto) 0.00 (0-0.2) K/uL Immature Gran # (Auto) 0.15 (0.01-0.20) K/uL Platelet Estimate Normal (Normal) Sodium 126 L (136-145) mmol/L Potassium 2.6 L (3.5-5.1) mmol/L Chloride 83 L (98-107) mmol/L Carbon Dioxide 27 (21-32) mmol/L Anion Gap 16 H (3-11) BUN 19 (6-23) mg/dl Creatinine 1.21 (0.6-1.4) mg/dl Est Cr Clr Drug Dosing 88.0 ml/min Est GFR ( Amer) 89.4 ml/min Est GFR (Non-Af Amer) 77.1 ml/min BUN/Creatinine Ratio 15.7 (10-20) Glucose 113 H (70-99(Fasting)) mg/dl Calcium 9.4 (8.5-10.1) mg/dl Magnesium 1.8 (1.7-2.4) mg/dl Total Bilirubin 2.4 H (0.2-1.0) mg/dl AST 38 (13-39) U/L ALT 39 (7-52) U/L Alkaline Phosphatase 57 (34-104) U/L Total Protein 7.7 (6.0-8.3) gm/dl Albumin 4.8 (3.4-5.0) gm/dl Globulin 2.9 (2.5-4.0) gm/dl Albumin/Globulin Ratio 1.7 (0.9-2) TSH 0.995 (0.300-4.500) uIu/ml Urine Color Urine Appearance (Clear) Urine pH (4.5-7.5) Ur Specific [place] (1.000-1.030) Urine Protein (Negative) Urine Glucose (UA) (Negative) Urine Ketones (Negative) Urine Blood (Negative) Urine Nitrite (Negative) Urine Bilirubin (Negative) Urine Urobilinogen (Negative) Ur Leukocyte Esterase (Negative) Urine WBC (Auto) (0-5) /hpf Urine RBC (Auto) (0-4) /hpf U Hyaline Cast (Auto) (0-5) /lpf U Epithel Cells (Auto) (0-5) /lpf Urine Bacteria (Auto) (Negative) Urine Osmolality (500-800) mOsm/kg Ur Random Sodium mmol/L Salicylates (3.0-30) mg/dl Urine Opiates Screen (Neg) Ur Methadone, Qual (Neg) Acetaminophen (10-30) ug/ml Urine Barbiturates (Neg) Ur Phencyclidine (PCP) (Neg) U Amphetamin/Meth Scrn (Neg) MDMA (Ecstasy) Screen (Neg) U Benzodiazepines Scrn (Neg) Ur Cocaine Metabolite (Neg) U Marijuana (THC) Screen (Neg) Ethyl Alcohol mg/dL (<10.0) mg/dl SARS-CoV-2, RNA, NAAT (NEGATIVE) 11/02/22 11/02/22 11/02/22 Range/Units 21:41 21:41 22:03 WBC (4.8-10.8) K/ul RBC (4.70-6.10) M/uL Hgb (14.0-18.0) g/dl Hct (42.0-52.0) % MCV (80.0-100.0) fL MCH (25.0-34.0) pg MCHC (32.0-36.0) g/dL RDW Std Deviation (36.4-46.3) fL RDW Coeff of Juan (11.5-14.5) % Plt Count (130-400) K/uL MPV (9.4-12.4) fL Immature Gran % (Auto) % Neut % (Auto) % Lymph % (Auto) % Karnes % (Auto) % Eos % (Auto) % Baso % (Auto) % Neut # (Auto) (1.40-6.50) K/uL Lymph # (Auto) (1.2-3.4) K/uL Karn[place] # (Auto) (0.11-0.59) K/uL Eos # (Auto) (0-0.50) K/uL Baso # (Auto) (0-0.2) K/uL Immature Gran # (Auto) (0.01-0.20) K/uL Platelet Estimate (Normal) Sodium (136-145) mmol/L Potassium (3.5-5.1) mmol/L Chloride (98-107) mmol/L Carbon Dioxide (21-32) mmol/L Anion Gap (3-11) BUN (6-23) mg/dl Creatinine (0.6-1.4) mg/dl Est Cr Clr Drug Dosing ml/min Est GFR ( Amer) ml/min Est GFR (Non-Af Amer) ml/min BUN/Creatinine Ratio (10-20) Glucose (70-99(Fasting)) mg/dl Calcium (8.5-10.1) mg/dl Magnesium (1.7-2.4) mg/dl Total Bilirubin (0.2-1.0) mg/dl AST (13-39) U/L ALT (7-52) U/L Alkaline Phosphatase (34-104) U/L Total Protein (6.0-8.3) gm/dl Albumin (3.4-5.0) gm/dl Globulin (2.5-4.0) gm/dl Albumin/Globulin Ratio (0.9-2) TSH (0.300-4.500) uIu/ml Urine Color Urine Appearance (Clear) Urine pH (4.5-7.5) Ur Specific [place] (1.000-1.030) Urine Protein (Negative) Urine Glucose (UA) (Negative) Urine Ketones (Negative) Urine Blood (Negative) Urine Nitrite (Negative) Urine Bilirubin (Negative) Urine Urobilinogen (Negative) Ur Leukocyte Esterase (Negative) Urine WBC (Auto) (0-5) /hpf Urine RBC (Auto) (0-4) /hpf U Hyaline Cast (Auto) (0-5) /lpf U Epithel Cells (Auto) (0-5) /lpf Urine Bacteria (Auto) (Negative) Urine Osmolality (500-800) mOsm/kg Ur Random Sodium mmol/L Salicylates < 3.0 L (3.0-30) mg/dl Urine Opiates Screen (Neg) Ur Methadone, Qual (Neg) Acetaminophen < 3 L (10-30) ug/ml Urine Barbiturates (Neg) Ur Phencyclidine (PCP) (Neg) U Amphetamin/Meth Scrn (Neg) MDMA (Ecstasy) Screen (Neg) U Benzodiazepines Scrn (Neg) Ur Cocaine Metabolite (Neg) U Marijuana (THC) Screen (Neg) Ethyl Alcohol mg/dL < 10.0 (<10.0) mg/dl SARS-CoV-2, RNA, NAAT NEGATIVE (NEGATIVE) 11/02/22 11/02/22 11/02/22 Range/Units 23:43 23:43 23:43 WBC (4.8-10.8) K/ul RBC (4.70-6.10) M/uL Hgb (14.0-18.0) g/dl Hct (42.0-52.0) % MCV (80.0-100.0) fL MCH (25.0-34.0) pg MCHC (32.0-36.0) g/dL RDW Std Deviation (36.4-46.3) fL RDW Coeff of Juan (11.5-14.5) % Plt Count (130-400) K/uL MPV (9.4-12.4) fL Immature Gran % (Auto) % Neut % (Auto) % Lymph % (Auto) % [place] % (Auto) % Eos % (Auto) % Baso % (Auto) % Neut # (Auto) (1.40-6.50) K/uL Lymph # (Auto) (1.2-3.4) K/uL [place] # (Auto) (0.11-0.59) K/uL Eos # (Auto) (0-0.50) K/uL Baso # (Auto) (0-0.2) K/uL Immature Gran # (Auto) (0.01-0.20) K/uL Platelet Estimate (Normal) Sodium (136-145) mmol/L Potassium (3.5-5.1) mmol/L Chloride (98-107) mmol/L Carbon Dioxide (21-32) mmol/L Anion Gap (3-11) BUN (6-23) mg/dl Creatinine (0.6-1.4) mg/dl Est Cr Clr Drug Dosing ml/min Est GFR ( Amer) ml/min Est GFR (Non-Af Amer) ml/min BUN/Creatinine Ratio (10-20) Glucose (70-99(Fasting)) mg/dl Calcium (8.5-10.1) mg/dl Magnesium (1.7-2.4) mg/dl Total Bilirubin (0.2-1.0) mg/dl AST (13-39) U/L ALT (7-52) U/L Alkaline Phosphatase (34-104) U/L Total Protein (6.0-8.3) gm/dl Albumin (3.4-5.0) gm/dl Globulin (2.5-4.0) gm/dl Albumin/Globulin Ratio (0.9-2) TSH (0.300-4.500) uIu/ml Urine Color [place] Urine Appearance Clear (Clear) Urine pH 7.0 (4.5-7.5) Ur Specific [place] 1.028 (1.000-1.030) Urine Protein 2+ H (Negative) Urine Glucose (UA) Negative (Negative) Urine Ketones 1+ H (Negative) Urine Blood Negative (Negative) Urine Nitrite Positive A (Negative) Urine Bilirubin Negative (Negative) Urine Urobilinogen Negative (Negative) Ur Leukocyte Esterase Trace H (Negative) Urine WBC (Auto) 1-5 (0-5) /hpf Urine RBC (Auto) 0-4 (0-4) /hpf U Hyaline Cast (Auto) 5-10 H (0-5) /lpf U Epithel Cells (Auto) 10-20 H (0-5) /lpf Urine Bacteria (Auto) Negative (Negative) Urine Osmolality 838 H (500-800) mOsm/kg Ur Random Sodium mmol/L Salicylates (3.0-30) mg/dl Urine Opiates Screen Neg (Neg) Ur Methadone, Qual Neg (Neg) Acetaminophen (10-30) ug/ml Urine Barbiturates Neg (Neg) Ur Phencyclidine (PCP) Neg (Neg) U Amphetamin/Meth Scrn Neg (Neg) MDMA (Ecstasy) Screen Neg (Neg) U Benzodiazepines Scrn Neg (Neg) Ur Cocaine Metabolite Neg (Neg) U Marijuana (THC) Screen Neg (Neg) Ethyl Alcohol mg/dL (<10.0) mg/dl SARS-CoV-2, RNA, NAAT (NEGATIVE) 11/02/22 Range/Units 23:43 WBC (4.8-10.8) K/ul RBC (4.70-6.10) M/uL Hgb (14.0-18.0) g/dl Hct (42.0-52.0) % MCV (80.0-100.0) fL MCH (25.0-34.0) pg MCHC (32.0-36.0) g/dL RDW Std Deviation (36.4-46.3) fL RDW Coeff of Juan (11.5-14.5) % Plt Count (130-400) K/uL MPV (9.4-12.4) fL Immature Gran % (Auto) % Neut % (Auto) % Lymph % (Auto) % [place] % (Auto) % Eos % (Auto) % Baso % (Auto) % Neut # (Auto) (1.40-6.50) K/uL Lymph # (Auto) (1.2-3.4) K/uL [place] # (Auto) (0.11-0.59) K/uL Eos # (Auto) (0-0.50) K/uL Baso # (Auto) (0-0.2) K/uL Immature Gran # (Auto) (0.01-0.20) K/uL Platelet Estimate (Normal) Sodium (136-145) mmol/L Potassium (3.5-5.1) mmol/L Chloride (98-107) mmol/L Carbon Dioxide (21-32) mmol/L Anion Gap (3-11) BUN (6-23) mg/dl Creatinine (0.6-1.4) mg/dl Est Cr Clr Drug Dosing ml/min Est GFR ( Amer) ml/min Est GFR (Non-Af Amer) ml/min BUN/Creatinine Ratio (10-20) Glucose (70-99(Fasting)) mg/dl Calcium (8.5-10.1) mg/dl Magnesium (1.7-2.4) mg/dl Total Bilirubin (0.2-1.0) mg/dl AST (13-39) U/L ALT (7-52) U/L Alkaline Phosphatase (34-104) U/L Total Protein (6.0-8.3) gm/dl Albumin (3.4-5.0) gm/dl Globulin (2.5-4.0) gm/dl Albumin/Globulin Ratio (0.9-2) TSH (0.300-4.500) uIu/ml Urine Color Urine Appearance (Clear) Urine pH (4.5-7.5) Ur Specific [place] (1.000-1.030) Urine Protein (Negative) Urine Glucose (UA) (Negative) Urine Ketones (Negative) Urine Blood (Negative) Urine Nitrite (Negative) Urine Bilirubin (Negative) Urine Urobilinogen (Negative) Ur Leukocyte Esterase (Negative) Urine WBC (Auto) (0-5) /hpf Urine RBC (Auto) (0-4) /hpf U Hyaline Cast (Auto) (0-5) /lpf U Epithel Cells (Auto) (0-5) /lpf Urine Bacteria (Auto) (Negative) Urine Osmolality (500-800) mOsm/kg Ur Random Sodium 33 mmol/L Salicylates (3.0-30) mg/dl Urine Opiates Screen (Neg) Ur Methadone, Qual (Neg) Acetaminophen (10-30) ug/ml Urine Barbiturates (Neg) Ur Phencyclidine (PCP) (Neg) U Amphetamin/Meth Scrn (Neg) MDMA (Ecstasy) Screen (Neg) U Benzodiazepines Scrn (Neg) Ur Cocaine Metabolite (Neg) U Marijuana (THC) Screen (Neg) Ethyl Alcohol mg/dL (<10.0) mg/dl SARS-CoV-2, RNA, NAAT (NEGATIVE) Administered Medications Acetaminophen (Acetaminophen 325 Mg Tab) 650 mg PO Q4H PRN PRN Reason: Fever Stop: 12/03/22 13:54 Last Admin: 11/05/22 03:01 Dose: 650 mg Documented By: HFS Folic Acid (Folic Acid 1 Mg Tab) 1 mg PO QAM [facility] Stop: 12/03/22 11:59 Last Admin: 11/05/22 08:06 Dose: 1 mg Documented By: [id number] Admin: 11/04/22 08:45 Dose: 1 mg Documented By: Admin: 11/03/22 11:45 Dose: 1 mg Documented By: NRB Ketorolac Tromethamine (Ketorolac Tromethamine 10 Mg Tablet) 10 mg PO Q6H PRN PRN Reason: pain Stop: 11/09/22 16:04 Last Admin: 11/05/22 03:02 Dose: 10 mg Documented By: [facility] Admin: 11/04/22 17:06 Dose: 10 mg Documented By: AM Lorazepam (Lorazepam 2 Mg/1 Ml Vial) 2 mg IV UD PRN; Protocol PRN Reason: EtOH Withdrawal AWSS Score 8,9 Stop: 12/03/22 02:26 Last Admin: 11/03/22 19:41 Dose: 2 mg Documented By: [facility] Admin: 11/03/22 05:46 Dose: 2 mg Documented By: Lorazepam (Lorazepam 2 Mg/1 Ml Vial) 1 mg IV UD PRN; Protocol PRN Reason: EtOH Withdrawal AWSS Score 6,7 Stop: 12/03/22 02:26 Last Admin: 11/03/22 23:51 Dose: 1 mg Documented By: Admin: 11/03/22 14:05 Dose: 1 mg Documented By: NUBIA Multi-Ingredient Mouthwash/Gargle (First - Mouthwash Blm 119 Ml) 5 ml PO BID [facility] Stop: 11/06/22 12:44 Last Admin: 11/05/22 08:09 Dose: 5 ml Documented By: [id number] Admin: 11/04/22 21:41 Dose: 5 ml Documented By: Admin: 11/04/22 13:54 Dose: 5 ml Documented By: AM Naltrexone HCl (Naltrexone Hcl 50 Mg Tab) 50 mg PO DAILY [facility] Stop: 12/05/22 08:59 Last Admin: 11/05/22 09:59 Dose: 50 mg Documented By: [id number] Potassium Chloride (Potassium Chloride Crtab 20 Meq Tabcr) 40 meq PO BID TERRI Stop: 12/03/22 20:59 Last Admin: 11/05/22 08:06 Dose: 40 meq Documented By: [id number] Admin: 11/04/22 21:42 Dose: 40 meq Documented By: [facility] Admin: 11/04/22 08:45 Dose: 40 meq Documented By: Admin: 11/03/22 19:42 Dose: 40 meq Documented By: RAVINDER Thiamine HCl (Thiamine Hcl 100 Mg Tab) 200 mg PO QAM [facility] Stop: 12/03/22 11:59 Last Admin: 11/05/22 08:06 Dose: 200 mg Documented By: [id number] Admin: 11/04/22 08:46 Dose: 200 mg Documented By: Admin: 11/03/22 11:45 Dose: 200 mg Documented By: [email or web address] Discontinued Medications Chlordiazepoxide HCl (Chlordiazepoxide Hcl 25 Mg Cap) 50 mg PO NOW ONE Stop: 11/02/22 21:50 Last Admin: 11/02/22 21:57 Dose: 50 mg Documented By: GRACIA Chlordiazepoxide HCl (Chlordiazepoxide Hcl 25 Mg Cap) 50 mg PO Q8H [facility] Stop: 11/05/22 03:01 Last Admin: 11/05/22 02:59 Dose: 50 mg Documented By: [facility] Admin: 11/04/22 21:44 Dose: 50 mg Documented By: [facility] Admin: 11/04/22 10:54 Dose: 50 mg Documented By: AM Chlordiazepoxide HCl (Chlordiazepoxide Hcl 25 Mg Cap) 50 mg PO Q6H [facility] Stop: 11/04/22 03:01 Last Admin: 11/04/22 04:07 Dose: 50 mg Documented By: [facility] Admin: 11/03/22 21:16 Dose: 50 mg Documented By: [facility] Admin: 11/03/22 15:20 Dose: 50 mg Documented By: NUBIA Diazepam (Diazepam 5 Mg/Ml Inj 10ml Vial) Confirm Administered Dose 5 mg .ROUTE .STK-MED ONE Stop: 11/02/22 21:48 Last Admin: 11/02/22 21:52 Dose: Not Given Documented By: MES Diazepam (Diazepam 5 Mg/Ml Inj 10ml Vial) 10 mg IV NOW STA Stop: 11/02/22 21:50 Last Admin: 11/02/22 21:51 Dose: 10 mg Documented By: GRACIA Diazepam (Diazepam 5 Mg/Ml Inj 10ml Vial) 10 mg IV NOW STA Stop: 11/02/22 22:15 Last Admin: 11/02/22 22:15 Dose: 10 mg Documented By: GRACIA Folic Acid (Folic Acid 1 Mg Tab) 1 mg PO QAM [facility] Stop: 12/03/22 08:59 Last Admin: 11/03/22 09:28 Dose: Not Given Documented By: NRB Multivitamins 10 ml/ Thiamine HCl 100 mg/ Folic Acid 1 mg/Sodium Chloride 1,011.2 mls @ 500 mls/hr IV .Q2H2M ONE Stop: 11/02/22 23:50 Last Infusion: 11/03/22 02:05 Dose: 0 mls/hr Documented By: Admin: 11/02/22 22:25 Dose: 500 mls/hr Documented By: GRACIA Levetiracetam 1,500 mg/ Sodium (Chloride) 115 mls @ 440 mls/hr IV NOW STA Stop: 11/02/22 22:03 Last Infusion: 11/02/22 23:24 Dose: 0 mls/hr Documented By: Admin: 11/02/22 22:21 Dose: 440 mls/hr Documented By: GRACIA Sodium Chloride (Nss 1000ml) 1,000 mls @ 999 mls/hr IV .Q1H1M TERRI Stop: 11/02/22 23:00 Last Infusion: 11/02/22 23:24 Dose: 0 mls/hr Documented By: Admin: 11/02/22 22:01 Dose: 999 mls/hr Documented By: GRACIA Potassium Chloride (K Harvey / Wtr) 10 meq in 100 mls @ 100 mls/hr IV Q1H TERRI; Protocol Stop: 11/03/22 01:44 Last Infusion: 11/03/22 04:06 Dose: 0 mls/hr Documented By: Admin: 11/03/22 03:03 Dose: 100 mls/hr Documented By: Infusion: 11/03/22 02:41 Dose: 100 mls/hr Documented By: Admin: 11/03/22 01:41 Dose: 100 mls/hr Documented By: Sodium Chloride (Nss 1000ml) 1,000 mls @ 999 mls/hr IV .Q1H1M ONE Stop: 11/03/22 00:35 Last Infusion: 11/03/22 03:12 Dose: 0 mls/hr Documented By: Admin: 11/03/22 01:41 Dose: 999 mls/hr Documented By: ZEYAD Thiamine HCl 100 mg/ Syringe 10 mls @ 2 mls/min IV ONE ONE Stop: 11/03/22 02:49 Last Admin: 11/03/22 03:04 Dose: 2 mls/min Documented By: ZEYAD Potassium Chloride (K Harvey / Wtr) 10 meq in 100 mls @ 100 mls/hr IV Q1H TERRI Stop: 11/03/22 08:59 Last Infusion: 11/03/22 09:28 Dose: 0 mls/hr Documented By: Admin: 11/03/22 09:26 Dose: Not Given Documented By: Admin: 11/03/22 07:36 Dose: 100 mls/hr Documented By: Infusion: 11/03/22 06:50 Dose: 100 mls/hr Documented By: Admin: 11/03/22 05:50 Dose: 100 mls/hr Documented By: Infusion: 11/03/22 05:50 Dose: 100 mls/hr Documented By: Admin: 11/03/22 05:49 Dose: 100 mls/hr Documented By: ZEYAD Magnesium Sulfate/Dextrose (Magnesium Sulfate / D5w) 1 gm in 100 mls @ 50 mls/hr IV ONE ONE Stop: 11/03/22 16:57 Last Infusion: 11/03/22 17:35 Dose: 0 mls/hr Documented By: Admin: 11/03/22 15:21 Dose: 50 mls/hr Documented By: NUBIA Potassium Chloride (K Harvey / Wtr) 10 meq in 100 mls @ 100 mls/hr IV Q1H TERRI; Protocol Stop: 11/03/22 18:59 Last Infusion: 11/03/22 20:41 Dose: 0 mls/hr Documented By: Admin: 11/03/22 19:41 Dose: 100 mls/hr Documented By: Infusion: 11/03/22 19:35 Dose: 100 mls/hr Documented By: Admin: 11/03/22 18:35 Dose: 100 mls/hr Documented By: Infusion: 11/03/22 18:34 Dose: 0 mls/hr Documented By: Admin: 11/03/22 17:35 Dose: 100 mls/hr Documented By: Infusion: 11/03/22 17:35 Dose: 0 mls/hr Documented By: Admin: 11/03/22 15:21 Dose: 100 mls/hr Documented By: NUBIA Loperamide HCl (Loperamide Hcl 2 Mg Cap) 2 mg PO NOW STA Stop: 11/04/22 12:15 Last Admin: 11/04/22 12:38 Dose: 2 mg Documented By: AM Lorazepam (Lorazepam 2 Mg/1 Ml Vial) 3 mg IV ONCE PRN; Protocol PRN Reason: EtOH Withdrawal AWSS Score 10+ Last Admin: 11/02/22 22:42 Dose: 3 mg Documented By: GRACIA Lorazepam (Lorazepam 2 Mg/1 Ml Vial) 3 mg IV ONCE STA Stop: 11/03/22 07:08 Last Admin: 11/03/22 07:36 Dose: 3 mg Documented By: DARIUS Morphine Sulfate (Morphine Sulfate 2 Mg/Ml Carp) 2 mg IV NOW STA Stop: 11/04/22 12:20 Last Admin: 11/04/22 12:38 Dose: 2 mg Documented By: AM Potassium Chloride (Potassium Chloride Crtab 20 Meq Tabcr) 40 meq PO QAM TERRI Stop: 12/03/22 08:59 Last Admin: 11/03/22 09:28 Dose: Not Given Documented By: NRB Potassium Chloride (Potassium Chloride Crtab 20 Meq Tabcr) 40 meq PO QAM TERRI Stop: 12/03/22 11:59 Last Admin: 11/03/22 11:45 Dose: 40 meq Documented By: NRB Potassium Chloride (Potassium Chloride Crtab 20 Meq Tabcr) 40 meq PO NOW STA Stop: 11/03/22 14:59 Last Admin: 11/03/22 15:20 Dose: 40 meq Documented By: NUBIA Thiamine HCl (Thiamine Hcl 100 Mg Tab) 200 mg PO QAM TERRI Stop: 12/03/22 08:59 Last Admin: 11/03/22 09:28 Dose: Not Given Documented By: NRB Tramadol HCl (Tramadol Hcl 50 Mg Tablet) 50 mg PO NOW STA Stop: 11/04/22 09:12 Last Admin: 11/04/22 09:33 Dose: 50 mg Documented By: AM Imaging Data Radiologist's Impression: Cervical Spine CT 11/03/22 00:14 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 TECHNIQUE: Axial computed tomography images of the cervical spine without intravenous contrast. CTDI is 18.82 mGy and DLP is 370.3 mGy-cm. Automated exposure control was utilized for the study. A dose lowering technique was utilized adhering to the principles of ALARA. COMPARISON: No relevant prior studies available. FINDINGS: Vertebrae: Unremarkable. No acute fracture. 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 No spinal canal stenosis. Soft tissues: Unremarkable. IMPRESSION: No acute findings in the cervical spine. Electronically signed by: Abhilash Ledbetter MD 11/03/22 01:[address] 11/03/22 00:14 Exam(s): CT HEAD Without Contrast EXAM: CT Head Without Intravenous Contrast CLINICAL HISTORY: Reason for exam: seizure. TECHNIQUE: Axial computed tomography images of the head/brain without intravenous contrast. CTDI is 38.59 mGy and DLP is 732.51 mGy-cm. Automated exposure control was utilized for the study. A dose lowering technique was utilized adhering to the principles of ALARA. COMPARISON: No relevant prior studies available. FINDINGS: Brain: Unremarkable. No hemorrhage. No significant white matter disease. No edema. Ventricles: Unremarkable. No ventriculomegaly. Bones/joints: Unremarkable. No acute fracture. Soft tissues: Unremarkable. Sinuses: Unremarkable as visualized. No acute sinusitis. Mastoid air cells: Unremarkable as visualized. No mastoid effusion. IMPRESSION: Normal head/brain CT. Electronically signed by: Abhilash Ledbetter MD 11/03/22 01:05 AM Discharge Plan Visit Data Chief Complaint: Seizure Stated Complaint: SEIZURE ED Provider: Seng Spence Discharge Problem: Alcohol withdrawal, Acute hyponatremia, Transaminitis, Seizure, Hypokalemia Patient Disposition: Admitted As Inpatient Discharge Instructions Interventions: ED Discharge Assessment Last Done: 11/03/22 02:28
[2022-11-02] MEDS ORDERED: SODIUM CHLORIDE 0.9% 1000ML 1,000 ML IV SCH (22:00)
[2022-11-02 22:23] LABS: Albumin Level 4.8 gm/dl (3.4-5.0); Bilirubin,Total 2.4 mg/dl (0.2-1.0); Calcium 9.4 mg/dl (8.5-10.1); Potassium 2.6 mmol/L (3.5-5.1)
[2022-11-02 22:29] LABS: Albumin Globulin Ratio 1.7 (0.9-2); BUN Creatinine Ratio 15.7 (10-20); Est GFR (African American) 89.4 ml/min; Est GFR (Non-African American) 77.1 ml/min; Globulin 2.9 gm/dl (2.5-4.0); Total Protein 7.7 gm/dl (6.0-8.3)
[2022-11-02 22:30] LABS: Acetaminophen < 3 ug/ml (10-30); Salicylate < 3.0 mg/dl (3.0-30)
[2022-11-02] MEDS ORDERED: SODIUM CHLORIDE 0.9% 1000ML 1,000 ML IV ONE (23:35)
[2022-11-02 23:53] LABS: Magnesium 1.8 mg/dl (1.7-2.4)
[2022-11-03 00:15] LABS: Mean Corpuscular Hemoglobin 34.2 pg (25.0-34.0); Mean Corpuscular Hgb Conc 37.1 g/dL (32.0-36.0); Mean Corpuscular Volume 92.1 fL (80.0-100.0); Mean Platelet Volume 12.3 fL (9.4-12.4); Platelet Count 125 K/uL (130-400); RDW Coefficient of Variation 11.8 % (11.5-14.5); RDW Standard Deviation 39.4 fL (36.4-46.3)
[2022-11-03 00:15] LABS: Appearance Urine Clear (Clear); Bacteria Urine Automated Negative (Negative); Bilirubin Urine Negative (Negative); Blood Urine Negative (Negative); Color Urine Orange; Glucose Urine UA Negative (Negative); Ketones Urine 1+ (Negative); Leukocyte Esterase Urine Trace (Negative); Nitrite Urine Positive (Negative); Protein Urine 2+ (Negative); RBC Urine Automated 0-4 /hpf (0-4); Specific Gravity Urine 1.028 (1.000-1.030); Urobilinogen Urine Negative (Negative)
[2022-11-03 00:17] LABS: Immature Granulocytes # (auto) 0.15 K/uL (0.01-0.20); Immature Granulocytes % (auto) 1.1 %; Lymphocytes % (auto) 4.9 %; Monocytes % (auto) 4.9 %; Neutrophils # (auto) 12.65 K/uL (1.40-6.50); Neutrophils % (auto) 89.1 %; Platelet Estimate Normal (Normal)
--- NOTE | 2022-11-03 01:02 | CT Scan Report ---
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 TECHNIQUE: Axial computed tomography images of the cervical spine without intravenous contrast. CTDI is 18.82 mGy and DLP is 370.3 mGy-cm. Automated exposure control was utilized for the study. A dose lowering technique was utilized adhering to the principles of ALARA. COMPARISON: No relevant prior studies available. FINDINGS: Vertebrae: Unremarkable. No acute fracture. 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 No spinal canal stenosis. Soft tissues: Unremarkable. IMPRESSION: No acute findings in the cervical spine. Electronically signed by: Abhilash Ledbetter MD 11/03/22 01:01 AM
--- NOTE | 2022-11-03 01:06 | CT Scan Report ---
Exam(s): CT HEAD Without Contrast EXAM: CT Head Without Intravenous Contrast CLINICAL HISTORY: Reason for exam: seizure. TECHNIQUE: Axial computed tomography images of the head/brain without intravenous contrast. CTDI is 38.59 mGy and DLP is 732.51 mGy-cm. Automated exposure control was utilized for the study. A dose lowering technique was utilized adhering to the principles of ALARA. COMPARISON: No relevant prior studies available. FINDINGS: Brain: Unremarkable. No hemorrhage. No significant white matter disease. No edema. Ventricles: Unremarkable. No ventriculomegaly. Bones/joints: Unremarkable. No acute fracture. Soft tissues: Unremarkable. Sinuses: Unremarkable as visualized. No acute sinusitis. Mastoid air cells: Unremarkable as visualized. No mastoid effusion. IMPRESSION: Normal head/brain CT. Electronically signed by: Abhilash Ledbetter MD 11/03/22 01:05 AM
--- NOTE | 2022-11-03 01:17 | History & Physical Report ---
Patient seen and examined. I agree with the history and physical and the plan as outlined in the resident's note. 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, may need transfer to ICU if worsening withdrawal symptoms unresponsive to Ativan (2) Seizure: Plan: -Generalized tonic clonic seizures likely secondary to alcohol withdrawal, lower suspicion for epileptiform seizure -Head CT negative on admission -Seizure precautions, aspiration precautions -Keppra load given in ER -AWSS protocol as above (3) Hypokalemia: Plan: -K 2.6 on admission, likely due to GI losses from excessive emesis -Repletion with IV KCl in ER -KCl 40 meq PO daily -Trend BMP, replete as needed (4) Hyponatremia: Plan: -Na 126, likely secondary to beer potomania -NSS 1L bolus given in ER -Serum + urine osmolality, urine sodium ordered -Anticipate improvement with fluid restriction -Trend BMP (5) Alcohol abuse: Plan: -Longstanding history of severe alcohol use disorder -Psychiatry consulted -Can consider trial of naltrexone if pt amenable (6) Thrombocytopenia: Plan: -Plts 126 on admission -Likely due to bone marrow suppression from alcohol abuse -Currently low suspicion for active bleeding -Trend CBC (7) Leukocytosis: Plan: -WBC 14.2 on admission -Likely demargination in setting of alcohol withdrawal -Low suspicion for infection at present, UA likely contaminated and pt reports no symptoms typical of infection -Trend CBC (8) Anemia: Plan: -Hgb 13 on admission, normal MCV -Likely due to bone marrow suppression from alcohol abuse -Continue folate supplementation -Low suspicion for active bleeding at present -Trend CBC Plan FENGI: NPO pending SS evaluation and improvement in mental status Code status: Full DVT ppx: SCDs Isolation: None Dispo: PCU History of Present Illness Chief Complaint: Seizure Primary Care Provider: NO PCP 37 yo M with PMH severe alcohol use disorder, self-injury, multiple reported suicide attempts (most recent via intentional drug overdose), unspecified psychotic illness involving auditory hallucinations for which he was on Abilify, depression, anxiety, panic attacks, multiple hospital admissions for alcohol intoxication and withdrawal presenting with seizure. Pt was recently hospitalized at [facility] from 10/04-10/06 for intentional overdose with Advil and discharged home afterward. He has been drinking for 16 years, drinks 10-12 mixed beverages daily from sunrise to sunset. Reports longest period of sobriety has been 1 month. Since his discharge he has continued to drink with this frequency/volume until 10/01 when he began to reduce his consumption. His last drink was in the late evening of 10/31. Since he stopped drinking, pt has had progressive malaise, poor oral intake and persistent nausea with multiple episodes of NBNB emesis. Today he experienced 2-3 minutes of convulsions during which he was unconscious and bit his tongue. This occurred again around 9 PM, similar presentation, and he was subsequently brought to ED. Pt arrived to ED with tachycardia 140s, normotensive. ED labs- WBC 14, Plt 125, Na 126, K 2.6, AG 16, TB 2.4, urine ketones, ETOH level 10, head CT normal. ED interventions include diazepam 10 mg IV x2, NSS 1L bolus, Librium 50 mg, Keppra 1500 mg load, MVI, lorazepam 3 mg IV. On my evaluation, the pt is drowsy but reports feeling better since receiving Valium. He notes some tongue pain from where he accidentally bit himself while seizing. Denies any particular tremors or cravings for alcohol at present, no chest pain or dyspnea, abdominal pain, N/V. Allergies Allergy/AdvReac Type Severity Reaction Status Date / Time No Known Allergies Allergy Unverified 07/15/22 08:24 Home Medications Medication Instructions Recorded Confirmed Type No Known Home Medications 11/02/22 11/02/22 History Past Med/Surg History Medical History Alcohol abuse Surgical History No significant past surgical history Social History Smoking Status: Current every day smoker Tobacco Type: E-cigarettes / Vaping Hx Alcohol Use: Yes Alcohol type: beer Alcohol type Comment: karen Garcia Substance Use: Yes Non-Prescribed Medications: Crack / Cocaine and Methamphetamines Preferred Language: Andorran Communication Ability: Effective 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 Engine 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 Beliefs That Will Affect Care: None Current Living Situation: Alone Feels Safe at Home: Yes Assistive Devices: None Review of Systems Review of Systems: Per HPI Physical Exam Physical Exam: GENERAL: Drowsy, laying in bed, no acute distress HEENT: PERRLA, EOMI, moist mucous membranes, tongue abrasion of L side without active bleeding of mouth CV: Tachycardia, regular rhythm, normal S1 and S2, no murmurs Resp: CTAB, unlabored respirations Abd: soft, nontender, nondistended, no guarding or rebound Skin: no rashes, warm and dry Neuro: AOx3 but somnolent, no focal motor or sensory deficits, CN 2-12 intact, responds to commands, no tremors noted Psych: "ok" mood, blunted affect, no SI/HI, no AVH at present Results & Data Results & Data ([facility]) Vital Signs (Past 12 Hours) Vital Signs Pulse Pulse Resp BP BP Pulse Ox O2 Del Method 11/03/22 00:48 121 H 18 144/86 H 99 Room Air 11/02/22 23:48 120 H 14 98/84 L 97 Room Air 11/02/22 22:01 149 H 22 122/94 97 Room Air 11/02/22 21:39 146 H Code Status & VTE Plan VTE Prophylaxis Plan VTE Prophylaxis will be ordered: Yes Resident Activity Tracking Resident Involvement: Resident Care Provided Care Provided: Adult Hospital Medicine
[2022-11-03] MEDS: POTASSIUM CHLORIDE / WTR 10 MEQ/100 ML PLCT IV SCH ×10 (01:41→19:41)
[2022-11-03] MEDS ORDERED: ONDANSETRON INJ 2 MG/ML 2 ML VIAL IV PRN (02:27)
[2022-11-03] MEDS ORDERED: Ativan IV Alcohol Withdrawal--Active Protocol IV PRN (02:27)
[2022-11-03] MEDS ORDERED: LORazepam 2 MG/1 ML VIAL IV PRN ×3 (02:27→07:12)
[2022-11-03] MEDS ORDERED: Ativan PO Alcohol Withdrawal--Active Protocol PO PRN (02:27)
[2022-11-03] MEDS ORDERED: LORazepam 1 MG TAB PO PRN ×4 (02:27)
[2022-11-03 02:36] LABS: Amphetamines+Metham, Urine Neg (Neg); Barbiturates, Urine Neg (Neg); Benzodiazepine, Urine Neg (Neg); Cocaine, Urine Neg (Neg); MDMA (Ecstacy), Urine Neg (Neg); Methadone, Urine Neg (Neg); Opiate, Urine Neg (Neg); Phencyclidine, Urine Neg (Neg)
[2022-11-03] MEDS ORDERED: THIAMINE HCL 100 MG in SYRINGE 9 ML IV ONE (02:45)
[2022-11-03 04:11] LABS: Basophils # (auto) 0.01 K/uL (0-0.2); Basophils % (auto) 0.1 %; Hematocrit (blood only) 32.4 % (42.0-52.0); Hemoglobin 12.1 g/dl (14.0-18.0); Immature Granulocytes # (auto) 0.07 K/uL (0.01-0.20); Immature Granulocytes % (auto) 0.7 %; Lymphocytes # (auto) 0.75 K/uL (1.2-3.4); Mean Corpuscular Hemoglobin 35.1 pg (25.0-34.0); Mean Corpuscular Hgb Conc 37.3 g/dL (32.0-36.0); Mean Corpuscular Volume 93.9 fL (80.0-100.0); Mean Platelet Volume 11.7 fL (9.4-12.4); Monocytes % (auto) 3.7 %; Neutrophils # (auto) 9.52 K/uL (1.40-6.50); Neutrophils % (auto) 88.5 %; Platelet Count 97 K/uL (130-400); RDW Coefficient of Variation 11.9 % (11.5-14.5); RDW Standard Deviation 40.1 fL (36.4-46.3); Red Blood Count 3.45 M/uL (4.70-6.10); White Blood Count 10.75 K/ul (4.8-10.8)
[2022-11-03 04:29] LABS: Albumin Globulin Ratio 1.6 (0.9-2); Albumin Level 4.1 gm/dl (3.4-5.0); BUN Creatinine Ratio 11.7 (10-20); Bilirubin,Total 2.2 mg/dl (0.2-1.0); Calcium 7.9 mg/dl (8.5-10.1); Creatinine Clr Calc Pharmacy 113.3 ml/min; Est GFR (African American) 121.3 ml/min; Est GFR (Non-African American) 104.6 ml/min; Globulin 2.6 gm/dl (2.5-4.0); Magnesium 1.9 mg/dl (1.7-2.4); Potassium 2.8 mmol/L (3.5-5.1); Total Protein 6.7 gm/dl (6.0-8.3)
[2022-11-03] MEDS: LORazepam 2 MG/1 ML VIAL IV PRN ×4 (05:46→23:51)
[2022-11-03] MEDS ORDERED: LORazepam 2 MG/1 ML VIAL IV STA (07:07)
[2022-11-03] MEDS ORDERED: THIAMINE HCL 100 MG TAB PO SCH (09:00)
[2022-11-03] MEDS ORDERED: FOLIC ACID 1 MG TAB PO SCH (09:00)
[2022-11-03] MEDS ORDERED: POTASSIUM CHLORIDE CRTAB 20 MEQ TABCR PO SCH ×2 (09:00→12:00)
--- NOTE | 2022-11-03 11:11 | Psychiatric Consultation ---
Date of Consultation November 03, 2022 Impression / Recommendations Impression This is a 37 yo with a history of alcohol use admitted medically. Diagnostically consistent with alcohol use disorder. Acute risk of self-harm is low given denial of SI and receiving treatment for alcohol withdrawal. Chronic risk of self-harm and harm to others is slightly increased due to substance use with substance use treatment being the most significant modifiable risk factor to reduce acute and chronic risk. Recommendation is for residential/rehab substance use treatment which he will consider. Encourage ongoing motivational interviewing. (1) Alcohol withdrawal: (2) Seizure: (3) Alcohol use disorder, severe, dependence: Plan -Continue AWSS as well as thiamine and folic acid -Consider starting naltrexone 50mg qd for alcohol use disorder once he is out of active withdrawal and if LFTs/liver function is stable -Recommend residential substance use treatment, if not agreeable to this would encourage him to consider switching to [place] health insurance (currently he has [place] Medicaid which is not accepted at local outpatient mental health/substance use offices) so he can access local outpatient substance use and healthcare resources and encourage AA attendance Psych History Identifying Data 37 yo man with history of unspecified mood disorder and alcohol use disorder medically for complicated alcohol withdrawal. Psychiatry consulted for risk assessment and recommendations. Chief Complaint "I've been drinking". History of Present Illness Tristin is known to the consult service from previous assessment last month on 10/04/2022 and 10/06/2022. At that he presented in alcohol withdrawal and after having made an impulsive suicide attempt in context of alcohol related hallucinations. He adamantly denied SI once clinically sober and was discharged with stated plan of avoiding any future alcohol use. He re-presented to the ED last night and was admitted medically for alcohol withdrawal with seizures and significant tongue bite. He reported that he stopped drinking alcohol on 10/31/2022. Today he remains confused and is not oriented to place (tells me "[facility]" for the [facility]) or month but knows the year. Says he has been drinking 7 "tall cans" a day. His speech is somewhat mumbled/dysarthric due to his tongue and mouth pain likely from seizures. KNows he is here for "drinking". Denies SI. Is still with his girlfriend, unclear if he is working. Asked about residential treatment and naltrexone says "I'll think about it". Allergies Allergy/AdvReac Type Severity Reaction Status Date / Time No Known Allergies Allergy Unverified 07/15/22 08:24 Home Medications Medication Instructions Recorded Confirmed Type No Known Home Medications 11/02/22 11/02/22 History Patient History Medical History Alcohol abuse Surgical History No significant past surgical history Social History Smoking Status: Current some day smoker Tobacco Type: E-cigarettes / Vaping Hx Alcohol Use: Yes Alcohol type: beer Alcohol type Comment: hard seltzers Hx Substance Use: Yes Non-Prescribed Medications: Crack / Cocaine and Methamphetamines Preferred Language: Tam[place] Communication Ability: Impaired Franchise Specialist Required: No Beliefs That Will Affect Care: None Current Living Situation: Alone Feels Safe at Home: Yes Assistive Devices: None Physical Exam Psychiatric: Orientation: alert and oriented to person; + not oriented to place and + not oriented to time Apperance: + disheveled Eye Contact: + fair eye contact Motor Behavior: no abnormal motor movements Speech: + abnormal rate/rhythm/volume of speech (dysarthric due to tongue swelling) Affect: + constricted affect Mood: + anxious mood Thought Process: goal directed thought process Thought Content: reality based without delusions Suicidal Thoughts: denies suicidal thoughts Homicidal Thoughts: denies homicidal thoughts Hallucinations: no auditory hallucinations and no visual hallucinations Insight: + limited insight Judgment: + limited judgement Vital Signs (Past 24 Hours): Last Vital Signs Temp 38 C H 11/03/22 05:26 Pulse 105 H 11/03/22 11:00 Resp 20 11/03/22 11:00 BP 111/66 11/03/22 11:00 Pulse Ox 95 11/03/22 11:00 O2 Del Method Room Air 11/03/22 07:38 Review of Systems All systems reviewed & are unremarkable except as noted in HPI & below (endorses tongue and mouth pain) Results & Data ([facility]) Medications Administered Folic Acid (Folic Acid 1 Mg Tab) 1 mg PO QAM TERRI Stop: 12/03/22 08:59 Last Admin: 11/03/22 09:28 Dose: Not Given Documented By: NRB Lorazepam (Lorazepam 2 Mg/1 Ml Vial) 2 mg IV UD PRN; Protocol PRN Reason: EtOH Withdrawal AWSS Score 8,9 Stop: 12/03/22 02:26 Last Admin: 11/03/22 05:46 Dose: 2 mg Documented By: ZEYAD Potassium Chloride (Potassium Chloride Crtab 20 Meq Tabcr) 40 me[facility] [place] Stop: 12/03/22 08:59 Last Admin: 11/03/22 09:28 Dose: Not Given Documented By: NRB Thiamine HCl (Thiamine Hcl 100 Mg Tab) [facility] [place] Stop: 12/03/22 08:59 Last Admin: 11/03/22 09:28 Dose: Not Given Documented By: NRB Coding Level of Care Code 54425 IN/OBS CONSULT LVL 3,45M Diagnoses Alcohol withdrawal F10.939 Seizure R56.9 Alcohol use disorder, severe, dependence F10.20 Time Spent (min) 46
--- NOTE | 2022-11-03 11:31 | Hospitalist Progress Note ---
Date of Service November 03, 2022 Assessment & Plan (1) Alcohol withdrawal: Plan: -Clinical history and presenting symptoms consistent with alcohol withdrawal, currently without delirium tremens -ETOH level of 10 on admission, last known drink on 3 late evening -ER interventions- Valium 10 mg IV x2, Librium 50 mg, Ativan -Added continued Librium taper today, consider repeat Valium doses for more long acting benzo option -AWSS protocol, closely monitor BP + HR -Continue daily thiamine, folate supplementation -Telemetry monitoring -Case discussed with coal pulverizing operator, may need transfer to ICU if worsening withdrawal symptoms unresponsive to the above strategies (2) Seizure: Plan: -Generalized tonic clonic seizures reported prior to arrival to ER, likely secondary to acute alcohol withdrawal, lower suspicion for epileptiform seizure -Head CT negative on admission -Seizure precautions, aspiration precautions -Keppra load given in ER -AWSS protocol as above -Ativan 4mg x1 if needed for active seizure (3) Hypokalemia: Plan: -K 2.6 on admission, likely due to GI losses from excessive emesis, repeat soon thereafter of 2.8 -Received total of 90meq KCl since arrival to ER, will recheck BMP now and continue to replete as necessary (4) Hyponatremia: Plan: -Na 126 on admission, up to 133 this afternoon -Urine Osm>Serum Osm, suggests low solute diet (from alcohol intake) -Trend BMP -Fluid restriction 1500cc (5) Alcohol abuse: Plan: -Longstanding history of severe alcohol use disorder -Psychiatry consulted, recommendation is for residential/rehab substance use treatment which he will consider -Naltrexone 50mg daily can be considered after out of active withdrawal period if LFTs stable (6) Thrombocytopenia: Plan: -Plts 126 on admission -> 97 today -Likely due to bone marrow suppression from alcohol abuse -Currently low suspicion for active bleeding -Trend CBC (7) Leukocytosis: Plan: -WBC 14.2 on admission, resolved -Likely demargination in setting of alcohol withdrawal -Low suspicion for infection at present, UA likely contaminated and pt reports no symptoms typical of infection -Trend CBC (8) Anemia: Plan: -Likely due to bone marrow suppression from alcohol abuse -Continue folate supplementation -Low suspicion for active bleeding at present -Trend CBC; Hgb 12.1 (baseline ~13) with normal MCV Plan FENGI: Regular diet with 1500cc fluid restriction Code status: Full DVT ppx: SCDs Isolation: None Dispo: PCU Admission and Anticipated Discharge Date Admission Date: November 03, 2022 Subjective Overnight with delirium/confusion, dayshift nurse found patient with fecal matter all over the room and on himself, babbling incoherently. Received one- time 3 mg Ativan dosing early this morning with improvement in mentation and patient began resting at that time. On my interview patient denies any compla ints other than feeling tired and tongue pain, little anxious. Review of Systems Review of Systems: All systems reviewed & are unremarkable except as noted in Subjective Physical Exam Constitutional: WD/WN, vitals as above Respiratory: normal respiratory effort, lungs clear to auscultation Cardiovascular: RRR, no murmur, no edema tachycardic Gastrointestinal (Abdomen): normal bowel sounds, soft, nontender, no hepatosplenomegaly Skin: no rashes, warm and dry Psychiatric: A+Ox3, euthymic affect Results & Data Results & Data ([facility]) Vital Signs (Past 12 Hours) Vital Signs Temp Pulse Pulse Resp BP BP Pulse Ox 11/03/22 11:00 105 H 20 111/66 95 11/03/22 10:30 109 H 17 97 11/03/22 10:20 108 H 17 96 11/03/22 10:10 106 H 16 96 11/03/22 10:00 101 H 16 111/74 99 11/03/22 09:30 97 H 17 94 11/03/22 09:00 93/58 L 97 11/03/22 08:30 95 11/03/22 07:38 104/69 96 11/03/22 06:40 101 H 14 95 11/03/22 06:00 105 H 102/75 92 11/03/22 05:24 108 H 18 116/69 94 11/03/22 05:20 107 H 19 95 11/03/22 04:30 104 H 15 97/61 L 98 11/03/22 04:00 111 H 15 95 11/03/22 03:30 107 H 11 L 94 11/03/22 09:59 97 H 11/03/22 07:38 102 H 17 104/69 97 11/03/22 07:38 109 H 16 104/69 97 11/03/22 06:01 107 H 11/03/22 05:26 38 C H 105 H 18 116/69 97 11/03/22 03:05 37 C 112 H 18 125/72 96 11/03/22 03:05 112 H 11/03/22 01:45 115 H 22 108/70 100 11/03/22 01:34 113 H 11/03/22 00:48 121 H 18 144/86 H 99 11/02/22 23:48 120 H 14 98/84 L 97 O2 Del Method 11/03/22 11:00 11/03/22 10:30 11/03/22 10:20 11/03/22 10:10 11/03/22 10:00 11/03/22 09:30 11/03/22 09:00 11/03/22 08:30 11/03/22 07:38 11/03/22 06:40 11/03/22 06:00 11/03/22 05:24 11/03/22 05:20 11/03/22 04:30 11/03/22 04:00 11/03/22 03:30 11/03/22 09:59 11/03/22 07:38 Room Air 11/03/22 07:38 Room Air 11/03/22 06:01 11/03/22 05:26 Room Air 11/03/22 03:05 Room Air 11/03/22 03:05 11/03/22 01:45 Room Air 11/03/22 01:34 11/03/22 00:48 Room Air 11/02/22 23:48 Room Air PG Care Time/CCT Total # of Minutes Spent Total Time Spent with Patient: Total time spent is greater than 50% in coordination of care (as documented) at patient's floor/unit and/or counseling patient: Coding Level of Care Code None Diagnoses Alcohol withdrawal F10.939 Seizure R56.9 Hypokalemia E87.6 Hyponatremia E87.1 Alcohol abuse F10.10 Thrombocytopenia D69.6 Leukocytosis D72.829 Anemia D64.9
[2022-11-03] MEDS: THIAMINE HCL 100 MG TAB PO SCH (11:45)
[2022-11-03] MEDS: FOLIC ACID 1 MG TAB PO SCH (11:45)
[2022-11-03] MEDS ORDERED: ACETAMINOPHEN 325 MG TAB PO PRN (13:55)
[2022-11-03] MEDS ORDERED: chlordiazePOXIDE ALCOHOL WITHDRAWL 50MG PO STA (14:43)
[2022-11-03 14:53] LABS: BUN Creatinine Ratio 9.1 (10-20); Est GFR (Non-African American) 111.3 ml/min; Potassium 2.5 mmol/L (3.5-5.1)
[2022-11-03] MEDS ORDERED: MAGNESIUM SULFATE / D5W 1 GM/100 ML BAG IV ONE (14:58)
[2022-11-03] MEDS ORDERED: POTASSIUM CHLORIDE CRTAB 20 MEQ TABCR PO STA (14:58)
[2022-11-03] MEDS: chlordiazePOXIDE HCl 25 MG CAP PO SCH ×2 (15:20→21:16)
[2022-11-03] MEDS: POTASSIUM CHLORIDE CRTAB 20 MEQ TABCR PO SCH (19:42)
[2022-11-04] MEDS: chlordiazePOXIDE HCl 25 MG CAP PO SCH ×3 (04:07→21:44)
--- NOTE | 2022-11-04 06:01 | Electrocardiogram Report ---
Test Reason : Blood Pressure : / mmHG Vent. Rate : 146 BPM Atrial Rate : 146 BPM P-R Int : 124 ms QRS Dur : 072 ms QT Int : 340 ms P-R-T Axes : 072 061 052 degrees QTc Int : 529 ms Poor data quality, interpretation may be adversely affected Sinus tachycardia Otherwise normal ECG When compared with ECG of 03-OCT-2022 08:22, No significant change was found Confirmed by Ernesto Martins ([id number]) on 11/04/2022 6:01:01 AM Referred By: REFERRED SELF Confirmed By:Ernesto Martins
--- NOTE | 2022-11-04 07:17 | Hospitalist Progress Note ---
Date of Service November 04, 2022 Assessment & Plan (1) Alcohol withdrawal: Plan: -Clinical history and presenting symptoms consistent with alcohol withdrawal, currently without delirium tremens -ETOH level of 10 on admission, last known drink on 3 late evening, reports drinking about ten [employer] Smash 24oz cans daily for some time. Has had sobriety in the past with naltrexone, but started drinking again after it ran out -Continue Librium taper with Ativan PRN per AWSS protocol -Continue daily thiamine, folate supplementation -Imodium as needed for diarrhea, no suspicion of infectious cause but rather 2/2 withdrawal -Psych provided naltrexone recommendations this admission, will resume per patient request once out of active withdrawal period (2) Seizure: Plan: -Generalized tonic clonic seizures reported prior to arrival to ER, likely secondary to acute alcohol withdrawal, lower suspicion for epileptiform seizure -Head CT negative on admission -Seizure precautions, aspiration precautions -Keppra load given in ER -AWSS protocol as above -Ativan 4mg x1 if needed for active seizure (3) Hypokalemia: Plan: -K 2.6 on admission, likely due to GI losses from excessive emesis, improved to 3.0 with IV and PO repletion -Mg normal -EKG 11/04 personally interpreted, shows NSR with rate of 98 bpm, MN 122, normal QRS, QTc not prolonged, , no T wave abnormalities; essentially normal EKG -Continue KCl 40 meq PO BID and repeat BMP in AM (4) Hyponatremia: Plan: -Na 126 on admission, up to 138 with fluid restriction -Urine Osm>Serum Osm, suggests low solute diet (from alcohol intake) -Trend BMP -Fluid restriction 2000cc (5) Alcohol abuse: Plan: -Longstanding history of severe alcohol use disorder -Psychiatry consulted, recommendation is for residential/rehab substance use treatment; patient declines inpatient alcohol rehab at this time but desires outpatient resources and naltrexone when able -Naltrexone 50mg daily can be considered after out of active withdrawal period if LFTs stable (6) Thrombocytopenia: Plan: -Plts 126 on admission -> 101 today -Likely due to bone marrow suppression from alcohol abuse -Currently low suspicion for active bleeding -Trend CBC (7) Leukocytosis: Plan: -WBC 14.2 on admission, resolved, likely stress response during acute alcohol withdrawal -Low suspicion for infection -Trend CBC (8) Anemia: Plan: -Likely due to bone marrow suppression from alcohol abuse -Continue folate supplementation -Low suspicion for active bleeding at present -Trend CBC; Hgb 11.3 today (baseline ~13) with normal MCV (9) Tongue laceration: Plan: From bite during seizure episode prior to admission Magic mouthwash and Tylenol for pain Plan FENGI: Regular diet with 2000cc fluid restriction Code status: Full DVT ppx: SCDs Isolation: None Dispo: PCU Admission and Anticipated Discharge Date Admission Date: November 03, 2022 Subjective Today is much more awake and alert. Complains of diarrhea and sore tongue from biting it during seizure episode prior to admission. He reports drinking about 10 "tall boy" alcoholic beverages daily, with an alcohol content of 8%. Review of Systems Review of Systems: All systems reviewed & are unremarkable except as noted in Subjective Physical Exam Constitutional: WD/WN, vitals as above ENMT: healing wound to left tongue and upper lip Respiratory: normal respiratory effort, lungs clear to auscultation Cardiovascular: RRR, no murmur, no edema Gastrointestinal (Abdomen): normal bowel sounds, soft, nontender, no hepatosplenomegaly Skin: no rashes, warm and dry Neurologic: no tremor Psychiatric: A+Ox3, euthymic affect Results & Data Results & Data ([facility]) Vital Signs (Past 12 Hours) Vital Signs Temp Pulse Pulse Resp BP BP Pulse Ox 11/04/22 04:02 37.3 C 102 H 19 111/73 95 11/03/22 23:27 36.9 C 101 H 17 111/84 100 11/03/22 22:00 95 H 11/03/22 21:12 105 H 20 120/82 99 11/03/22 19:40 11/03/22 19:23 36.9 C 112 H 20 112/90 98 O2 Del Method 11/04/22 04:02 Room Air 11/03/22 23:27 Room Air 11/03/22 22:00 11/03/22 21:12 Room Air 11/03/22 19:40 Room Air 11/03/22 19:23 Room Air PG Care Time/CCT Total # of Minutes Spent Total Time Spent with Patient: Total time spent is greater than 50% in coordination of care (as documented) at patient's floor/unit and/or counseling patient: Coding Level of Care Code 79722 SUB INP/OBS CARE 3/50MIN Diagnoses Alcohol withdrawal F10.939 Seizure R56.9 Hypokalemia E87.6 Hyponatremia E87.1 Alcohol abuse F10.10 Thrombocytopenia D69.6 Leukocytosis D72.829 Anemia D64.9 Tongue laceration S01.512A
[2022-11-04] MEDS: POTASSIUM CHLORIDE CRTAB 20 MEQ TABCR PO SCH ×2 (08:45→21:42)
[2022-11-04] MEDS: FOLIC ACID 1 MG TAB PO SCH (08:45)
[2022-11-04] MEDS: THIAMINE HCL 100 MG TAB PO SCH (08:46)
[2022-11-04 08:49] LABS: Basophils # (auto) 0.02 K/uL (0-0.2); Basophils % (auto) 0.3 %; Hematocrit (blood only) 31.2 % (42.0-52.0); Hemoglobin 11.3 g/dl (14.0-18.0); Immature Granulocytes # (auto) 0.02 K/uL (0.01-0.20); Immature Granulocytes % (auto) 0.3 %; Lymphocytes # (auto) 1.47 K/uL (1.2-3.4); Lymphocytes % (auto) 25.5 %; Mean Corpuscular Hemoglobin 34.9 pg (25.0-34.0); Mean Corpuscular Hgb Conc 36.2 g/dL (32.0-36.0); Mean Corpuscular Volume 96.3 fL (80.0-100.0); Mean Platelet Volume 11.7 fL (9.4-12.4); Monocytes # (auto) 0.37 K/uL (0.11-0.59); Monocytes % (auto) 6.4 %; Neutrophils # (auto) 3.88 K/uL (1.40-6.50); Neutrophils % (auto) 67.5 %; Platelet Count 101 K/uL (130-400); RDW Coefficient of Variation 11.9 % (11.5-14.5); RDW Standard Deviation 41.6 fL (36.4-46.3); Red Blood Count 3.24 M/uL (4.70-6.10); White Blood Count 5.76 K/ul (4.8-10.8)
[2022-11-04] MEDS ORDERED: traMADol HCL 50 MG TABLET PO STA (09:11)
[2022-11-04 10:04] LABS: BUN Creatinine Ratio 10.6 (10-20); Calcium 8.5 mg/dl (8.5-10.1); Creatinine Clr Calc Pharmacy 125.2 ml/min; Est GFR (African American) 130.8 ml/min; Est GFR (Non-African American) 112.9 ml/min
[2022-11-04] MEDS ORDERED: LOPERAMIDE HCL 2 MG CAP PO STA (12:14)
[2022-11-04] MEDS ORDERED: MoRPHine SULFATE 2 MG/ML CARP IV STA (12:19)
--- NOTE | 2022-11-04 12:32 | Electrocardiogram Report ---
Test Reason : Blood Pressure : / mmHG Vent. Rate : 098 BPM Atrial Rate : 098 BPM P-R Int : 122 ms QRS Dur : 080 ms QT Int : 348 ms P-R-T Axes : 035 048 029 degrees QTc Int : 444 ms Normal sinus rhythm Normal ECG When compared with ECG of 02-NOV-2022 21:41, Vent. rate has decreased BY 48 BPM Confirmed by Lawrence Velez ([id number]) on 11/04/2022 12:32:03 PM Referred By: REFERRED SELF Confirmed By:Lawrence Velez
[2022-11-04] MEDS: FIRST - Mouthwash BLM 119 ML PO SCH ×2 (13:54→21:41)
[2022-11-04] MEDS ORDERED: ACETAMINOPHEN 325 MG TAB PO PRN (16:05)
[2022-11-04] MEDS: KETOROLAC TROMETHAMINE 10 MG TABLET PO PRN (17:06)
[2022-11-05] MEDS: chlordiazePOXIDE HCl 25 MG CAP PO SCH (02:59)
[2022-11-05] MEDS: KETOROLAC TROMETHAMINE 10 MG TABLET PO PRN (03:02)
[2022-11-05 06:19] LABS: Hematocrit (blood only) 31.4 % (42.0-52.0); Hemoglobin 11.2 g/dl (14.0-18.0); Mean Corpuscular Hemoglobin 34.7 pg (25.0-34.0); Mean Corpuscular Hgb Conc 35.7 g/dL (32.0-36.0); Mean Corpuscular Volume 97.2 fL (80.0-100.0); Mean Platelet Volume 10.9 fL (9.4-12.4); Platelet Count 119 K/uL (130-400); RDW Coefficient of Variation 11.9 % (11.5-14.5); RDW Standard Deviation 42.3 fL (36.4-46.3); Red Blood Count 3.23 M/uL (4.70-6.10); White Blood Count 4.24 K/ul (4.8-10.8)
[2022-11-05 06:46] LABS: Albumin Globulin Ratio 1.4 (0.9-2); Albumin Level 3.6 gm/dl (3.4-5.0); BUN Creatinine Ratio 13.5 (10-20); Bilirubin,Total 0.5 mg/dl (0.2-1.0); Calcium 8.4 mg/dl (8.5-10.1); Creatinine Clr Calc Pharmacy 143.9 ml/min; Est GFR (African American) 138.5 ml/min; Est GFR (Non-African American) 119.5 ml/min; Globulin 2.6 gm/dl (2.5-4.0); Magnesium 1.8 mg/dl (1.7-2.4); Potassium 3.6 mmol/L (3.5-5.1); Total Protein 6.2 gm/dl (6.0-8.3)
[2022-11-05] MEDS: FOLIC ACID 1 MG TAB PO SCH (08:06)
[2022-11-05] MEDS: THIAMINE HCL 100 MG TAB PO SCH (08:06)
[2022-11-05] MEDS: POTASSIUM CHLORIDE CRTAB 20 MEQ TABCR PO SCH (08:06)
[2022-11-05] MEDS: FIRST - Mouthwash BLM 119 ML PO SCH (08:09)
[2022-11-05] MEDS ORDERED: NALTREXONE HCL 50 MG TAB PO SCH (09:00)
--- NOTE | 2022-11-05 09:00 | Discharge Summary ---
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 Pt was recently hospitalized at [facility] from 10/04-10/06 for intentional overdose with Advil and discharged home afterward. He has been drinking for 16 years, drinks 10-12 mixed beverages daily from sunrise to sunset. Reports longest period of sobriety has been 1 month. Since his discharge he has continued to drink with this frequency/volume until 10/01 when he began to reduce his consumption. His last drink was in the late evening of 10/31. Since he stopped drinking, pt has had progressive malaise, poor oral intake and persistent nausea with multiple episodes of NBNB emesis. Today he experienced 2-3 minutes of convulsions during which he was unconscious and bit his tongue. This occurred again around 9 PM, similar presentation, and he was subsequently brought to ED. Pt arrived to ED with tachycardia 140s, normotensive. ED labs- WBC 14, Plt 125, Na 126, K 2.6, AG 16, TB 2.4, urine ketones, ETOH level 10, head CT normal. ED interventions include diazepam 10 mg IV x2, NSS 1L bolus, Librium 50 mg, Keppra 1500 mg load, MVI, lorazepam 3 mg IV. On my evaluation, the pt is drowsy but reports feeling better since receiving Valium. He notes some tongue pain from where he accidentally bit himself while seizing. Denies any particular tremors or cravings for alcohol at present, no chest pain or dyspnea, abdominal pain, N/V. Admission Exam Per Admitting Provider GENERAL: Drowsy, laying in bed, no acute distress HEENT: PERRLA, EOMI, moist mucous membranes, tongue abrasion of L side without active bleeding of mouth CV: Tachycardia, regular rhythm, normal S1 and S2, no murmurs Resp: CTAB, unlabored respirations Abd: soft, nontender, nondistended, no guarding or rebound Skin: no rashes, warm and dry Neuro: AOx3 but somnolent, no focal motor or sensory deficits, CN 2-12 intact, responds to commands, no tremors noted Psych: "ok" mood, blunted affect, no SI/HI, no AVH at present Principal Dx & Hospital Course #1 = Principal Diagnosis (1) Alcohol withdrawal: -Clinical history and presenting symptoms consistent with alcohol withdrawal, currently without delirium tremens -ETOH level of 10 on admission, last known drink on 10/31 late evening, reports drinking about ten [place] Smash 24oz cans daily for some time. Has had sobriety in the past with naltrexone, but started drinking again after it ran out -Finish out Librium taper and daily naltrexone 50mg PO on discharge; not requiring prn Ativan on day of discharge -Continue daily thiamine, folate supplementation -Discussed alcohol cessation, patient reports having motivation to quit at this time -Given information on local primary care providers (Dr. Villalpando, who admitted patient to hospital) in the event that he wants to establish care (2) Seizure: -Generalized tonic clonic seizures reported prior to arrival to ER, likely secondary to acute alcohol withdrawal, lower suspicion for epileptiform seizure, no further seizure activity since admission (3) Hypokalemia: -K 2.6 on admission, likely due to GI losses from excessive emesis, improved to 3.0 with IV and PO repletion -Mg normal -EKG 11/04 personally interpreted, shows NSR with rate of 98 bpm, [place] 122, normal QRS, QTc not prolonged, , no T wave abnormalities; essentially normal EKG -Continue KCl 40 meq PO BID and repeat BMP in AM (4) Hyponatremia: -Na 126 on admission, resolved with fluid restriction -Urine Osm>Serum Osm, suggests low solute diet (from alcohol intake) (5) Alcohol abuse: -Longstanding history of severe alcohol use disorder -Psychiatry consulted, recommendation is for residential/rehab substance use treatment; patient declines inpatient alcohol rehab at this time but desires outpatient resources and naltrexone as above -Naltrexone 50mg daily sent to pharmacy and started in-hospital on 11/05 (6) Thrombocytopenia: -Plts 126 on admission -> 119 on day of discharge -Likely due to bone marrow suppression from alcohol abuse -No active bleeding -Alcohol cessation as described above (7) Leukocytosis: -WBC 14.2 on admission, resolved, suspect stress response during acute alcohol withdrawal -No evidence of infection (8) Anemia: -Likely due to bone marrow suppression from alcohol abuse -Continue folate supplementation -Hgb stable this admission at ~11.3 (9) Tongue laceration: From bite during seizure episode prior to admission Tylenol/NSAIDs as needed for pain Discharge Exam Constitutional WD/WN, vitals as above Cardiovascular RRR, no murmur, no edema Psychiatric A+Ox3, euthymic affect Updated Medication List Medication Instructions Recorded Confirmed Type chlordiazepoxide HCl 10 mg capsule 10 mg PO ONCE #1 cap 11/05/22 Rx chlordiazepoxide HCl 25 mg capsule 25 mg PO Q8H #3 caps 11/05/22 Rx folic acid 1 mg tablet 1 mg PO QAM 30 days #30 tabs 11/05/22 Rx naltrexone 50 mg tablet 50 mg PO DAILY 30 days #30 tabs 11/05/22 Rx thiamine HCl (vitamin B1) 100 mg 200 mg PO QAM 30 days #60 tabs 11/05/22 Rx tablet Hospital Stay Data Consultations 11/02/22 23:35 ED Decision to Admit Stat 11/03/22 01:14 Consult Psychiatry Routine Diagnostic Imagining Performed 11/03/22 00:14 CT cervical spine wo con Stat CT head/brain wo con Stat Discharge Instructions Given to Patient (Per Discharging Provider) You were admitted to the hospital for management of severe alcohol withdrawal causing seizures. You are monitored closely and given medications for alcohol withdrawal. Due to alcohol use, your electrolytes were also very abnormal, including a severely low potassium which is very dangerous. This improved over time and with vitamins. You were felt safe for discharge, and you did not desire inpatient rehab at this time. Outpatient resources were provided to you. I have also provided the name of a family doctor in the area that can see you in the near future if you would like. I started you on naltrexone on your day of discharge. I sent a prescription to _. You should take 1 pill daily to help you become alcohol free. I also prescribed what is called Librium, to prevent relapse and withdrawal in the coming days at home. This medication has very specific instructions, please review them with the pharmacist and read the instructions described below. There is evidence on your lab work that alcohol use is causing damage to your organs. If you are ready to be alcohol free, it is important to continue the naltrexone medication and to see Dr. Villalpando to help you stay sober. His office number is [phone]. If you have any other urgent medical concerns, please seek urgent medical attention. Otherwise, please call the provider above to schedule an appointment while you are in [place]. Total Time Total Time Spent Total Time Spent (In Minutes): 45 min Coding Level of Care Code 04413 INP/OBS DISCH >30 MIN Diagnoses Alcohol withdrawal F10.939 Seizure R56.9 Hypokalemia E87.6 Hyponatremia E87.1 Alcohol abuse F10.10 Thrombocytopenia D69.6 Leukocytosis D72.829 Anemia D64.9 Tongue laceration S01.512A
[2022-11-05] MEDS ORDERED: chlordiazePOXIDE HCl 25 MG CAP PO SCH (11:00)
== END 2022-11-05 13:30 | disposition home or self-care (01) | DRG 897 ==
LOC: ED 21:30 → EDINP 11-03 01:14 → SUATTDRO 11-03 01:14 → 2E 11-03 02:28

== ENCOUNTER 2023-01-05 14:47 | Inpatient (IN) ==
[2023-01-05] MEDS ORDERED: FAMOTIDINE 20MG IV PUSH 20 MG/5 ML SYR IV STA (14:53)
[2023-01-05] MEDS ORDERED: THIAMINE HCL 100 MG, FOLIC ACID 1 MG in SODIUM CHLORIDE 0.9% 1000ML 1,000 ML IV STA (15:00)
[2023-01-05] MEDS ORDERED: SODIUM CHLORIDE 0.9% 1000ML 1,000 ML IV SCH (15:00)
[2023-01-05 15:23] LABS: Base Excess ABG 5.2 mEq/L (-9-1.8); HCO3 ABG 26 mmol/L (19-24); Oxygen Saturation ABG 98.1 % (90-95); PCO2 ABG 28 mmHg (35-46); PO2 ABG 81 mmHg (80-95)
[2023-01-05 15:27] LABS: iSTAT Creatinine 0.7 mg/dl (0.6-1.3); iSTAT Hemoglobin 13.6 g/dl (14.0-18.0); iSTAT Ionized Calcium 1.11 mmol/l (1.12-1.32); iSTAT Potassium 2.7 mmol/L (3.3-5.0)
[2023-01-05 15:29] LABS: Allen Test Pos (Pos); pH ABG 7.58 (7.35-7.45)
--- NOTE | 2023-01-05 15:33 | XRay Report ---
XR chest 1V portable HISTORY: 37 years-old Male seizures acute seizure-like activity COMPARISON: 01/04/2023 TECHNIQUE: AP view of the chest FINDINGS: Cardiomediastinal and hilar silhouettes are within normal limits. No pneumothorax, pleural effusion, airspace consolidation or pulmonary edema. Bones of the chest appear grossly intact. IMPRESSION: No acute processes. ACT 112: Negative or not required by law. The above report was generated using voice recognition software. It may contain grammatical, syntax o r spelling errors. Electronically signed by: Mustapha Miller M.D. 01/05/2023 3:32 PM
[2023-01-05 15:36] LABS: INR 1.1 (0.9-1.1); Prothrombin Time 11.6 Seconds (9.0-12.0)
[2023-01-05 15:58] LABS: Alanine Aminotransferase 99 U/L (7-52); Albumin Globulin Ratio 1.6 (0.9-2); Albumin Level 4.6 gm/dl (3.4-5.0); Alkaline Phosphatase 66 U/L (34-104); Anion Gap 18 (3-11); Aspartate Aminotransferase 240 U/L (13-39); Bilirubin,Total 1.8 mg/dl (0.2-1.0); Blood Urea Nitrogen 7 mg/dl (6-23); Calcium 9.6 mg/dl (8.6-10.3); Carbon Dioxide 23 mmol/L (21-32); Chloride 92 mmol/L (98-107); Est GFR (Non-African American) 111.3 ml/min; Globulin 2.9 gm/dl (2.5-4.0); Glucose 146 mg/dl (70-99(Fasting)); Lipase 108 U/L (11-82); Magnesium 1.5 mg/dl (1.7-2.4); Potassium 2.7 mmol/L (3.5-5.1); Sodium 133 mmol/L (136-145); Total Protein 7.5 gm/dl (6.0-8.3); Troponin I High Sensitivity 14.8 pg/ml (0-20)
[2023-01-05] MEDS ORDERED: POTASSIUM CHLORIDE CRTAB 20 MEQ TABCR PO STA (15:59)
[2023-01-05] MEDS ORDERED: MAGNESIUM SULFATE / D5W 1 GM/100 ML BAG IV STA (16:00)
[2023-01-05 16:22] LABS: Basophils # (auto) 0.01 K/uL (0-0.2); Basophils % (auto) 0.2 %; Hematocrit (blood only) 35.1 % (42.0-52.0); Hemoglobin 12.5 g/dl (14.0-18.0); Immature Granulocytes # (auto) 0.05 K/uL (0.01-0.20); Immature Granulocytes % (auto) 0.9 %; Lymphocytes # (auto) 0.15 K/uL (1.2-3.4); Lymphocytes % (auto) 2.8 %; Mean Corpuscular Hemoglobin 33.5 pg (25.0-34.0); Mean Corpuscular Hgb Conc 35.6 g/dL (32.0-36.0); Mean Corpuscular Volume 94.1 fL (80.0-100.0); Monocytes # (auto) 0.24 K/uL (0.11-0.59); Monocytes % (auto) 4.4 %; Neutrophils # (auto) 4.95 K/uL (1.40-6.50); Neutrophils % (auto) 91.7 %; Ovalocytes 1+; Platelet Count 25 K/uL (130-400); Platelet Estimate Decreased (Normal); RDW Coefficient of Variation 12.7 % (11.5-14.5); RDW Standard Deviation 44.1 fL (36.4-46.3); Red Blood Count 3.73 M/uL (4.70-6.10)
--- NOTE | 2023-01-05 16:57 | CT Scan Report ---
CT head/brain wo con CLINICAL HISTORY: seizures Technique: Contiguous axial CT images of the head were acquired from the base of the skull to the jackie shania without intravenous contrast administration. Images were viewed in brain, subdural and bone [facility]. Automated dose lowering techniques and/or adjustment according to patient size were utilized for this exam. Comparison: Comparison is made to CT head 11/13/2022 Findings: The ventricles, basal cisterns, and cerebral sulci are normal. There is no acute intracranial hemorrh age or evidence of acute territorial infarction. Neither mass effect, shift of the midline structures , nor abnormal extra-axial fluid collections are shown. Imaged portions of the paranasal sinuses and mastoid air cells are clear. The orbits appear normal. There are no acute fractures of the calvaria or scalp swelling. Impression: No acute intracranial hemorrhage, no evidence of acute territorial infarction or other acute intracra nial disease process. ACT 112: Negative or not required by law. Electronically signed by: Micah Delgado M.D. 01/05/2023 4:55 PM
[2023-01-05] MEDS ORDERED: LACTATED RINGER'S 1,000 ML IV SCH (17:15)
--- NOTE | 2023-01-05 17:16 | Emergency Department Note ---
Impression & Plan Seizure, Alcohol withdrawal, Hypokalemia, Contusion, Thrombocytopenia, Alcoholic hepatitis, Hypomagnesemia ED Provider Note ED Provider Note NAME: CYNDI VALDOVINOS AGE:37 SEX: Male : 1985 ARRIVES VIA: EMS INFORMANT: EMS, significant other at bedside ED PROVIDER(s): Carolina Means DO CHIEF COMPLAINT: seizure, etoh withdrawal HPI: This is a 37-year-old male brought in by EMS due to recurrent seizures bel ieved to be related to alcohol withdrawal today. Patient's significant other who is also at bedside called EMS. Patient had been called to the residence 2 previous times for a seizure however both times patient return to baseline and refused transportation. Patient does have a history of alcohol abuse as well as prior alcohol withdrawal related seizures. He states his last drink was early yesterday morning. Patient given 5 mg IM Versed by EMS during transport as a precaution. They report no further seizure-like activity, check of prehospital blood glucose was not low, however patient still altered throughout their transport. Girlfriend denied any trauma or injury from the seizures today. PAST MEDICAL HISTORY:See Below PAST SURGICAL HISTORY:See Below FAMILY HISTORY:See Below SOCIAL HISTORY:See Below HOME MEDICATIONS:See Below ALLERGIES:See Below VITALS:See Below PHYSICAL EXAMINATION: GENERAL: alert, well appearing, well nourished, no distress, non-toxic HEAD: nc/at EYE EXAM: normal conjunctiva, PERRL and EOM's grossly intact OROPHARYNX: no exudate, no erythema, lips, buccal mucosa, and tongue normal and mucous membranes are dry, left-sided tongue contusion noted, dried blood noted in the mouth NECK: supple, no nuchal rigidity, no adenopathy, non-tender LUNGS: Clear to auscultation. Normal chest wall mechanics, no w/r/r HEART: no murmurs, S1 normal and S2 normal ABDOMEN: abdomen soft, non-tender, normo-active bowel sounds, no masses, no rebound or guarding. BACK: Back is symmetrical on inspection and there is no deformity, no midline tenderness, no CVA tenderness. SKIN: no rashes, petechiae, orbruising UPPER EXTREMITIES: upper extremities are grossly normal. FROM, nml pulses b/l. LOWER EXTREMITIES: No pitting edema. FROM, nml pulses b/l. NEURO EXAM: Confused, cranial nerves II-XII grossly intact, normal speech, no facial droop,nogross weakness of arms, no gross weakness of legs. Gross sensation intact. No ataxia. Vital Signs: reviewed and remarkable Differential Diagnosis: Differential diagnosis includes etiologies such as alcohol intoxication, toxicologic, infection, hypoglycemia, electrolyte abnormalities, cardiac sources, intracerebral event, neurologic, as well as others were entertained. MEDICAL DECISION MAKING: This is a 37-year-old male presents emergency department after several recurrent seizures today. Patient does have a known history of alcohol abuse and states he has not had a drink since yesterday morning. Patient had initially refused EMS transport with the first 2 seizures, however was still altered after the third 1 so EMS was able to bring him to the emergency room for additional evaluation. Patient was tachycardic although other vital signs stable, he was afebrile. Labs drawn and sent, IV established, patient given IV Valium, EKG and chest x-ray performed at bedside and interpreted by me, IV fluids started, patient placed on telemetry. Patient given banana bag additionally, IV Pepcid, and as needed placed for Valium additionally. CT head reassuring. Labs with abnormal LFTs although improved compared to yesterday. Thrombocytopenia worse compared to prior as was H&H. Hypokalemia and hypomagnesmia noted. Patient initially given IV magnesium and oral potassium repletion. Patient subsequently had recurrent episodes of dry heaving and then began to have bloody emesis. It was unclear initially if this was related to his large tongue contusion and bleeding versus if patient had additional occult GI bleed as he is high risk given history of alcohol abuse and thrombocytopenia. A Protonix drip was added as a precaution. Patient continued on IV fluids, IV banana bag additionally. Case discussed with the hospitalist as well as the ve teacher for additional evaluation and monitoring. I suspect patient seizures likely related to alcohol withdrawal. No recent history of substance abuse or illness per patient and girlfriend. No reported trauma. Patient did receive additional IV Valium while present in the emergency room. Consultation(s): 1747: DIscussed with Dr. David. 1809: Discussed with Dr. Duarte via TIger Text ER Treatment Provided: See below 1645: Patient still sleepy, no seizures like activity. HR improving. 175: Patient states his tongue hurts. He knows the year and where he is at. He cannot recall if the seizures he had were today or yesterday. 2021: Patient still tachycardic although improved. Other vital signs stable. Patient more oriented and alert. Patient states he feels nauseated and did begin to dry heave in the room. . Diagnostics Interpreted By Me: -ECG: Sinus tachycardia at 132, normal axis, normal intervals, nonspecific ST/T wave changes -Cardiac Monitoring: An order was placed for continuous cardiac monitoring. The monitor shows a rate of 117 with sinus tachycardia rhythm. -Laboratory studies: As stated above and show below. -Imaging studies: X-ray Chest: A single view study of the chest was reviewed and was negative for cardiomegaly, focal infiltrate, effusion, pulmonary edema, or wide mediastinum. Triage Nursing Note Reviewed Prior/Outside Records Reviewed - prior DC summary Procedures: [] Critical Care: Critical care of 67 min performed to assess and manage high likelihood of life- threatening alcohol withdrawal, involving labs and imaging performed with assessment to evaluate alcohol withdrawal seizures diagnosis with frequent reassessment. This time includes bedside time, treatment discussions with patient/family/consultants, documentation time and excludes procedure time. Past Med/Surg History Medical History Acute hypokalemia Acute hyponatremia Alcohol abuse Alcohol use disorder, severe, dependence Alcohol withdrawal seizure Surgical History No significant past surgical history Social History Smoking Status: Current every day smoker Tobacco Type: Cigarettes and E-cigarettes / Vaping Hx Alcohol Use: Yes Alcohol type: beer Alcohol type Comment: karen cartagena Hx Substance Use: Yes Non-Prescribed Medications: Crack / Cocaine and Methamphetamines Last Used Substance Other:: years ago per significant other Preferred Language: Kyrgyz Communication Ability: Effective Records Associate Required: No Beliefs That Will Affect Care: None Current Living Situation: Significant Other Other Information That Helps Us Care for You: No Feels Safe at Home: Yes Safety Concerns: Feels Safe At This Time Gender Identity: Male Assistive Devices: None Allergies Allergies Allergy/AdvReac Type Severity Reaction Status Date / Time No Known Allergies Allergy Unverified 11/07/22 08:59 Home Meds Home Medications Medication Instructions Recorded Confirmed No Known Home Medications 01/05/23 01/05/23 Results & Data (ED) Vital Signs Vital Signs - 24 hr 01/05/23 14:55 01/05/23 14:58 01/05/23 16:41 Temperature 37.7 C H Temperature Source Oral Oral Pulse Rate 140 H 127 H Respiratory Rate 15 Respiratory Effort / Characteristics Non-Labored Spontaneous Respiratory Depth Normal Blood Pressure 116/73 Blood Pressure Mean 87 Pulse Oximetry 92 Oxygen Delivery Method Room Air Sepsis Recent Fever Within 48 Hours No Sepsis New/Unexplained Change in Mental Status N/A Sepsis Action Taken by Nursing No Action Required 01/05/23 17:22 Temperature Temperature Source Oral Pulse Rate Respiratory Rate Respiratory Effort / Characteristics Non-Labored Spontaneous Respiratory Depth Normal Blood Pressure Blood Pressure Mean Pulse Oximetry Oxygen Delivery Method Sepsis Recent Fever Within 48 Hours Sepsis New/Unexplained Change in Mental Status Sepsis Action Taken by Nursing Laboratory Data 01/05/23 15:00 01/05/23 15:00 Lab Results 01/05/23 01/05/23 01/05/23 Range/Units 15:00 15:00 15:00 WBC 5.40 (4.8-10.8) K/ul RBC 3.73 L (4.70-6.10) M/uL Hgb 12.5 L D (14.0-18.0) g/dl POC Hgb (14.0-18.0) g/dl Hct 35.1 L (42.0-52.0) % POC Hct (42-52) % MCV 94.1 (80.0-100.0) fL MCH 33.5 (25.0-34.0) pg MCHC 35.6 (32.0-36.0) g/dL RDW Std Deviation 44.1 (36.4-46.3) fL RDW Coeff of Juan 12.7 (11.5-14.5) % Plt Count 25 L* (130-400) K/uL MPV 13.0 H (9.4-12.4) fL Immature Gran % (Auto) 0.9 % Neut % (Auto) 91.7 % Lymph % (Auto) 2.8 % [place] % (Auto) 4.4 % Eos % (Auto) 0.0 % Baso % (Auto) 0.2 % Neut # (Auto) 4.95 (1.40-6.50) K/uL Lymph # (Auto) 0.15 L (1.2-3.4) K/uL [place] # (Auto) 0.24 (0.11-0.59) K/uL Eos # (Auto) 0.00 (0-0.50) K/uL Baso # (Auto) 0.01 (0-0.2) K/uL Immature Gran # (Auto) 0.05 (0.01-0.20) K/uL Platelet Estimate Decreased L (Normal) Ovalocytes 1+ ESR (0-15) mm/hr PT 11.6 (9.0-12.0) Seconds INR 1.1 (0.9-1.1) ABG pH (7.35-7.45) ABG pCO2 (35-46) mmHg ABG pO2 (80-95) mmHg ABG HCO3 (19-24) mmol/L ABG O2 Saturation (90-95) % ABG Base Excess (-9-1.8) mEq/L Escobar Test (Pos) Oxygen Given POC Sodium (135-144) mmol/L Sodium 133 L (136-145) mmol/L POC Potassium (3.3-5.0) mmol/L Potassium 2.7 L (3.5-5.1) mmol/L POC Chloride (101-112) mmol/L Chloride 92 L (98-107) mmol/L Carbon Dioxide 23 (21-32) mmol/L POC Total CO2 (24-31) mmol/L Anion Gap 18 H (3-11) POC Anion Gap (16-25) mmol/L POC BUN (7-18) mg/dl BUN 7 (6-23) mg/dl Creatinine 0.88 (0.6-1.4) mg/dl POC Creatinine (0.6-1.3) mg/dl Est Cr Clr Drug Dosing Not Reportable Est GFR ( Amer) 129.0 ml/min Est GFR (Non-Af Amer) 111.3 ml/min BUN/Creatinine Ratio 8.0 L (10-20) Glucose 146 H (70-99(Fasting)) mg/dl POC Glucose (other) (70-99) mg/dl Calcium 9.6 (8.6-10.3) mg/dl POC Ioniz Calcium Radha (1.12-1.32) mmol/l Magnesium 1.5 L (1.7-2.4) mg/dl Total Bilirubin 1.8 H D (0.2-1.0) mg/dl AST 240 H (13-39) U/L ALT 99 H (7-52) U/L Alkaline Phosphatase 66 (34-104) U/L Troponin I High Sens 14.8 D (0-20) pg/ml Total Protein 7.5 (6.0-8.3) gm/dl Albumin 4.6 (3.4-5.0) gm/dl Globulin 2.9 (2.5-4.0) gm/dl Albumin/Globulin Ratio 1.6 (0.9-2) Lipase 108 H (11-82) U/L TSH (0.300-4.500) uIu/ml Ethyl Alcohol mg/dL (<10.0) mg/dl 01/05/23 01/05/23 01/05/23 Range/Units 15:00 15:00 15:10 WBC (4.8-10.8) K/ul RBC (4.70-6.10) M/uL Hgb (14.0-18.0) g/dl POC Hgb (14.0-18.0) g/dl Hct (42.0-52.0) % POC Hct (42-52) % MCV (80.0-100.0) fL MCH (25.0-34.0) pg MCHC (32.0-36.0) g/dL RDW Std Deviation (36.4-46.3) fL RDW Coeff of Juan (11.5-14.5) % Plt Count (130-400) K/uL MPV (9.4-12.4) fL Immature Gran % (Auto) % Neut % (Auto) % Lymph % (Auto) % [place] % (Auto) % Eos % (Auto) % Baso % (Auto) % Neut # (Auto) (1.40-6.50) K/uL Lymph # (Auto) (1.2-3.4) K/uL [place] # (Auto) (0.11-0.59) K/uL Eos # (Auto) (0-0.50) K/uL Baso # (Auto) (0-0.2) K/uL Immature Gran # (Auto) (0.01-0.20) K/uL Platelet Estimate (Normal) Ovalocytes ESR (0-15) mm/hr PT (9.0-12.0) Seconds INR (0.9-1.1) ABG pH 7.58 H* (7.35-7.45) ABG pCO2 28 L (35-46) mmHg ABG pO2 81 (80-95) mmHg ABG HCO3 26 H (19-24) mmol/L ABG O2 Saturation 98.1 H (90-95) % ABG Base Excess 5.2 H (-9-1.8) mEq/L Escobar Test Pos (Pos) Oxygen Given Room Air POC Sodium (135-144) mmol/L Sodium (136-145) mmol/L POC Potassium (3.3-5.0) mmol/L Potassium (3.5-5.1) mmol/L POC Chloride (101-112) mmol/L Chloride (98-107) mmol/L Carbon Dioxide (21-32) mmol/L POC Total CO2 (24-31) mmol/L Anion Gap (3-11) POC Anion Gap (16-25) mmol/L POC BUN (7-18) mg/dl BUN (6-23) mg/dl Creatinine (0.6-1.4) mg/dl POC Creatinine (0.6-1.3) mg/dl Est Cr Clr Drug Dosing Est GFR ( Amer) ml/min Est GFR (Non-Af Amer) ml/min BUN/Creatinine Ratio (10-20) Glucose (70-99(Fasting)) mg/dl POC Glucose (other) (70-99) mg/dl Calcium (8.6-10.3) mg/dl POC Ioniz Calcium Radha (1.12-1.32) mmol/l Magnesium (1.7-2.4) mg/dl Total Bilirubin (0.2-1.0) mg/dl AST (13-39) U/L ALT (7-52) U/L Alkaline Phosphatase (34-104) U/L Troponin I High Sens (0-20) pg/ml Total Protein (6.0-8.3) gm/dl Albumin (3.4-5.0) gm/dl Globulin (2.5-4.0) gm/dl Albumin/Globulin Ratio (0.9-2) Lipase (11-82) U/L TSH 0.832 (0.300-4.500) uIu/ml Ethyl Alcohol mg/dL < 10.0 (<10.0) mg/dl 01/05/23 01/05/23 Range/Units 15:14 15:18 WBC (4.8-10.8) K/ul RBC (4.70-6.10) M/uL Hgb (14.0-18.0) g/dl POC Hgb 13.6 L (14.0-18.0) g/dl Hct (42.0-52.0) % POC Hct 40 L (42-52) % MCV (80.0-100.0) fL MCH (25.0-34.0) pg MCHC (32.0-36.0) g/dL RDW Std Deviation (36.4-46.3) fL RDW Coeff of Juan (11.5-14.5) % Plt Count (130-400) K/uL MPV (9.4-12.4) fL Immature Gran % (Auto) % Neut % (Auto) % Lymph % (Auto) % [place] % (Auto) % Eos % (Auto) % Baso % (Auto) % Neut # (Auto) (1.40-6.50) K/uL Lymph # (Auto) (1.2-3.4) K/uL [place] # (Auto) (0.11-0.59) K/uL Eos # (Auto) (0-0.50) K/uL Baso # (Auto) (0-0.2) K/uL Immature Gran # (Auto) (0.01-0.20) K/uL Platelet Estimate (Normal) Ovalocytes ESR 7 (0-15) mm/hr PT (9.0-12.0) Seconds INR (0.9-1.1) ABG pH (7.35-7.45) ABG pCO2 (35-46) mmHg ABG pO2 (80-95) mmHg ABG HCO3 (19-24) mmol/L ABG O2 Saturation (90-95) % ABG Base Excess (-9-1.8) mEq/L Escobar Test (Pos) Oxygen Given POC Sodium 132 L (135-144) mmol/L Sodium (136-145) mmol/L POC Potassium 2.7 L (3.3-5.0) mmol/L Potassium (3.5-5.1) mmol/L POC Chloride 92 L (101-112) mmol/L Chloride (98-107) mmol/L Carbon Dioxide (21-32) mmol/L POC Total CO2 22 L (24-31) mmol/L Anion Gap (3-11) POC Anion Gap 22.0 (16-25) mmol/L POC BUN 4 L (7-18) mg/dl BUN (6-23) mg/dl Creatinine (0.6-1.4) mg/dl POC Creatinine 0.7 (0.6-1.3) mg/dl Est Cr Clr Drug Dosing Est GFR ( Amer) ml/min Est GFR (Non-Af Amer) ml/min BUN/Creatinine Ratio (10-20) Glucose (70-99(Fasting)) mg/dl POC Glucose (other) 150 H (70-99) mg/dl Calcium (8.6-10.3) mg/dl POC Ioniz Calcium Radha 1.11 L (1.12-1.32) mmol/l Magnesium (1.7-2.4) mg/dl Total Bilirubin (0.2-1.0) mg/dl AST (13-39) U/L ALT (7-52) U/L Alkaline Phosphatase (34-104) U/L Troponin I High Sens (0-20) pg/ml Total Protein (6.0-8.3) gm/dl Albumin (3.4-5.0) gm/dl Globulin (2.5-4.0) gm/dl Albumin/Globulin Ratio (0.9-2) Lipase (11-82) U/L TSH (0.300-4.500) uIu/ml Ethyl Alcohol mg/dL (<10.0) mg/dl Administered Medications Chlordiazepoxide HCl (Chlordiazepoxide Hcl 25 Mg Cap) 50 mg PO TID TERRI Stop: 02/06/23 20:59 Last Admin: 01/07/23 20:31 Dose: 50 mg Documented By: QG Famotidine (Famotidine 20 Mg Tab) 20 mg PO BID TERRI Stop: 02/06/23 20:59 Last Admin: 01/07/23 20:31 Dose: 20 mg Documented By: QG Gabapentin (Gabapentin 300 Mg Cap) 300 mg PO QPM TERRI Stop: 02/06/23 20:59 Last Admin: 01/07/23 20:31 Dose: 300 mg Documented By: QG Thiamine HCl 250 mg/ Sodium (Chloride) 52.5 mls @ 210 mls/hr IV QAM TERRI Stop: 02/05/23 08:59 Last Infusion: 01/07/23 09:36 Dose: 0 mls/hr Documented By: Admin: 01/07/23 09:09 Dose: 210 mls/hr Documented By: Infusion: 01/06/23 08:55 Dose: 0 mls/hr Documented By: Admin: 01/06/23 08:17 Dose: 210 mls/hr Documented By: GPF Folic Acid 1 mg/ Syringe 10 mls @ 5 mls/min IV QAM [facility] Stop: 02/05/23 08:59 Last Admin: 01/07/23 08:03 Dose: 5 mls/min Documented By: Admin: 01/06/23 08:16 Dose: 5 mls/min Documented By: GPF Lorazepam (Lorazepam 2 Mg/1 Ml Vial) 2 mg IV UD PRN; Protocol PRN Reason: EtOH Withdrawal AWSS Score 8,9 Stop: 02/04/23 21:09 Last Admin: 01/06/23 07:48 Dose: 2 mg Documented By: Admin: 01/05/23 21:47 Dose: 2 mg Documented By: TG Morphine Sulfate (Morphine Sulfate 2 Mg/Ml Carp) 2 mg IV Q3H PRN PRN Reason: Pain (1,2,3,4,5) & Pre PT Stop: 01/20/23 20:11 Last Admin: 01/07/23 19:35 Dose: 2 mg Documented By: Admin: 01/07/23 16:33 Dose: 2 mg Documented By: Admin: 01/06/23 21:01 Dose: 2 mg Documented By: BCM Ondansetron HCl (Ondansetron Inj 2 Mg/Ml 2 Ml Vial) 4 mg IV Q6H PRN PRN Reason: Nausea And Vomiting Stop: 02/04/23 22:12 Last Admin: 01/06/23 07:48 Dose: 4 mg Documented By: GPF Phenol (Chloraseptic 1.4% Soln 180 Ml Btl) 1 sprays MT TID PRN PRN Reason: mouth pain Stop: 02/05/23 20:10 Last Admin: 01/07/23 07:52 Dose: 1 sprays Documented By: Admin: 01/07/23 03:21 Dose: 1 sprays Documented By: Admin: 01/06/23 21:02 Dose: 1 sprays Documented By: ALEXEY Discontinued Medications Chlordiazepoxide HCl (Chlordiazepoxide Hcl 25 Mg Cap) 25 mg PO TID TERRI Stop: 02/06/23 08:59 Last Admin: 01/07/23 15:03 Dose: 25 mg Documented By: Admin: 01/07/23 09:18 Dose: 25 mg Documented By: RRBasia Diazepam (Diazepam 5 Mg/Ml Inj 10ml Vial) 5 mg IV NOW STA Stop: 01/05/23 14:54 Last Admin: 01/05/23 15:16 Dose: 5 mg Documented By: TRISTIN Diazepam (Diazepam 5 Mg/Ml Inj 10ml Vial) 5 mg IV Q1H PRN PRN Reason: Alcohol Withdrawal Stop: 02/04/23 17:32 Last Admin: 01/05/23 18:12 Dose: 5 mg Documented By: TRISTIN Diphenhydramine HCl (Diphenhydramine Capsule 25 Mg Cap) 25 mg PO NOW ONE Stop: 01/07/23 22:04 Last Admin: 01/07/23 22:32 Dose: 25 mg Documented By: QG Sodium Chloride (Nss 1000ml) 1,000 mls @ 125 mls/hr IV .Q8H TERRI Stop: 02/04/23 14:59 Last Infusion: 01/05/23 21:33 Dose: 0 mls/hr Documented By: Infusion: 01/05/23 17:58 Dose: 0 mls/hr Documented By: Admin: 01/05/23 15:16 Dose: 125 mls/hr Documented By: TRISTIN Famotidine (Pepcid 20mg Iv Push) 20 mg in 5 mls @ 2.5 mls/min IV NOW STA Stop: 01/05/23 14:54 Last Admin: 01/05/23 15:16 Dose: 2.5 mls/min Documented By: TRISTIN Thiamine HCl 100 mg/ Folic (Acid 1 mg/ Sodium Chloride) 1,001.2 mls @ 200 mls/hr IV .Q5H1M STA; Protocol Stop: 01/05/23 20:00 Last Infusion: 01/05/23 21:32 Dose: 0 mls/hr Documented By: Admin: 01/05/23 15:53 Dose: 200 mls/hr Documented By: CYNTHIA Magnesium Sulfate/Dextrose (Magnesium Sulfate / D5w) 1 gm in 100 mls @ 100 mls/hr IV NOW STA Stop: 01/05/23 16:59 Last Infusion: 01/05/23 17:22 Dose: 0 mls/hr Documented By: Admin: 01/05/23 16:08 Dose: 100 mls/hr Documented By: TRISTIN Lactated Ringer's (Lr) 1,000 mls @ 250 mls/hr IV .Q4H TERRI Stop: 02/04/23 17:14 Last Infusion: 01/05/23 21:32 Dose: 0 mls/hr Documented By: Admin: 01/05/23 17:50 Dose: 250 mls/hr Documented By: TRISTIN Pantoprazole Sodium (Protonix Bolus/Drip) 0 mls @ 1 mls/hr IV ONE STA Stop: 01/05/23 17:59 Last Infusion: 01/06/23 04:49 Dose: 0 mls/hr Documented By: Admin: 01/05/23 18:56 Dose: 1 mls/hr Documented By: TRISTIN Pantoprazole Sodium 80 mg/ (Dextrose) 120 mls @ 400 mls/hr IV NOW ONE Stop: 01/05/23 18:15 Last Infusion: 01/05/23 19:13 Dose: 0 mls/hr Documented By: Admin: 01/05/23 18:55 Dose: 400 mls/hr Documented By: TRISTIN Pantoprazole Sodium 40 mg/ (Dextrose) 100 mls @ 20 mls/hr IV Q5H TERRI Stop: 02/04/23 18:14 Last Infusion: 01/05/23 22:05 Dose: 0 mg/hr, 0 mls/hr Documented By: Admin: 01/05/23 18:56 Dose: 8 mg/hr, 20 mls/hr Documented By: TRISTIN Potassium Phosphate 40 mmol/ (Sodium Chloride) 1,013.3333 mls @ 152 mls/hr IV ONE ONE Stop: 01/06/23 02:54 Last Infusion: 01/06/23 04:04 Dose: 0 mls/hr Documented By: Admin: 01/05/23 20:38 Dose: 152 mls/hr Documented By: TRISTIN Pantoprazole Sodium 40 mg/ (Syringe) 10 mls @ 5 mls/min IV BID TERRI Stop: 02/04/23 21:29 Last Admin: 01/05/23 21:43 Dose: 5 mls/min Documented By: TG Magnesium Sulfate/Dextrose (Magnesium Sulfate / D5w) 1 gm in 100 mls @ 50 mls/hr IV Q2H TERRI Stop: 01/06/23 01:29 Last Infusion: 01/06/23 01:42 Dose: 0 mls/hr Documented By: Admin: 01/05/23 23:35 Dose: 50 mls/hr Documented By: Infusion: 01/05/23 23:35 Dose: 50 mls/hr Documented By: Admin: 01/05/23 21:47 Dose: 50 mls/hr Documented By: THEO Pantoprazole Sodium 40 mg/ (Dextrose) 100 mls @ 20 mls/hr IV Q5H TERRI Stop: 02/04/23 22:59 Last Infusion: 01/07/23 20:16 Dose: 0 mg/hr, 0 mls/hr Documented By: Admin: 01/07/23 15:07 Dose: 8 mg/hr, 20 mls/hr Documented By: Infusion: 01/07/23 15:07 Dose: 8 mg/hr, 20 mls/hr Documented By: Admin: 01/07/23 10:16 Dose: 8 mg/hr, 20 mls/hr Documented By: Infusion: 01/07/23 08:58 Dose: 8 mg/hr, 20 mls/hr Documented By: Admin: 01/07/23 03:58 Dose: 8 mg/hr, 20 mls/hr Documented By: Infusion: 01/07/23 03:58 Dose: 0 mg/hr, 0 mls/hr Documented By: Admin: 01/06/23 22:50 Dose: 8 mg/hr, 20 mls/hr Documented By: Infusion: 01/06/23 22:50 Dose: 8 mg/hr, 20 mls/hr Documented By: Admin: 01/06/23 18:00 Dose: 8 mg/hr, 20 mls/hr Documented By: Infusion: 01/06/23 17:59 Dose: 8 mg/hr, 20 mls/hr Documented By: Admin: 01/06/23 12:59 Dose: 8 mg/hr, 20 mls/hr Documented By: Infusion: 01/06/23 12:59 Dose: 8 mg/hr, 20 mls/hr Documented By: Admin: 01/06/23 08:17 Dose: 8 mg/hr, 20 mls/hr Documented By: Infusion: 01/06/23 08:17 Dose: 8 mg/hr, 20 mls/hr Documented By: Admin: 01/06/23 04:03 Dose: 8 mg/hr, 20 mls/hr Documented By: Infusion: 01/06/23 04:03 Dose: 8 mg/hr, 20 mls/hr Documented By: Admin: 01/05/23 23:35 Dose: 8 mg/hr, 20 mls/hr Documented By: TG Parenteral Electrolytes (Plasma-Lyte A Ph 7.4) 1,000 mls @ 80 mls/hr IV .[id number] TERRI Stop: 02/05/23 05:59 Last Infusion: 01/06/23 14:05 Dose: 0 mls/hr Documented By: Admin: 01/06/23 06:43 Dose: 80 mls/hr Documented By: TG Potassium Chloride (K Harvey / Wtr) 10 meq in 100 mls @ 100 mls/hr IV Q1H TERRI Stop: 01/06/23 10:29 Last Infusion: 01/06/23 13:05 Dose: 0 mls/hr Documented By: Admin: 01/06/23 11:26 Dose: 75 mls/hr Documented By: Infusion: 01/06/23 11:22 Dose: 75 mls/hr Documented By: Admin: 01/06/23 10:02 Dose: 75 mls/hr Documented By: Infusion: 01/06/23 08:48 Dose: 100 mls/hr Documented By: Admin: 01/06/23 07:48 Dose: 100 mls/hr Documented By: GPJose Raul Infusion: 01/06/23 07:43 Dose: 100 mls/hr Documented By: Admin: 01/06/23 06:43 Dose: 100 mls/hr Documented By: THEO Potassium Chloride (K Harvey / Wtr) 10 meq in 100 mls @ 100 mls/hr IV Q1H TERRI Stop: 01/06/23 12:29 Last Infusion: 01/06/23 16:03 Dose: 0 mls/hr Documented By: Admin: 01/06/23 14:24 Dose: 75 mls/hr Documented By: Infusion: 01/06/23 13:59 Dose: 100 mls/hr Documented By: Admin: 01/06/23 12:59 Dose: 100 mls/hr Documented By: GPF Magnesium Sulfate/Dextrose (Magnesium Sulfate / D5w) 1 gm in 100 mls @ 50 mls/hr IV ONE ONE Stop: 01/07/23 09:27 Last Infusion: 01/07/23 10:16 Dose: 0 mls/hr Documented By: Admin: 01/07/23 08:03 Dose: 50 mls/hr Documented By: GOYO Lorazepam (Lorazepam 2 Mg/1 Ml Vial) 2 mg IV Q6H TERRI Stop: 01/08/23 13:59 Last Admin: 01/07/23 03:20 Dose: 2 mg Documented By: Admin: 01/06/23 21:01 Dose: 2 mg Documented By: Admin: 01/06/23 13:46 Dose: 2 mg Documented By: GPF Lorazepam (Lorazepam 2 Mg/1 Ml Vial) 2 mg IV NOW STA Stop: 01/07/23 15:22 Last Admin: 01/07/23 15:36 Dose: 2 mg Documented By: RRR Miscellaneous (Icu Protocol For Hyperglycemia) 1 each N/A ACHS TERRI Stop: 01/07/23 21:09 Last Admin: 01/06/23 13:00 Dose: 1 each Documented By: Admin: 01/06/23 08:54 Dose: 1 each Documented By: Admin: 01/05/23 21:33 Dose: 1 each Documented By: THEO Ondansetron HCl (Ondansetron Inj 2 Mg/Ml 2 Ml Vial) 4 mg IV NOW STA Stop: 01/05/23 17:59 Last Admin: 01/05/23 18:13 Dose: 4 mg Documented By: BCN Potassium Chloride (Potassium Chloride Crtab 20 Meq Tabcr) 40 meq PO NOW STA Stop: 01/05/23 16:00 Last Admin: 01/05/23 16:08 Dose: 40 meq Documented By: BCN Potassium Chloride (Potassium Chloride 20 Meq/15 Ml Udc) 20 meq PO BID TERRI Stop: 01/07/23 21:01 Last Admin: 01/07/23 20:33 Dose: 20 meq Documented By: Admin: 01/07/23 07:53 Dose: 20 meq Documented By: Admin: 01/06/23 21:02 Dose: 20 meq Documented By: BCM Potassium Chloride (Potassium Chloride Crtab 20 Meq Tabcr) 20 meq PO TID TERRI Stop: 01/07/23 21:01 Last Admin: 01/07/23 20:32 Dose: 20 meq Documented By: Admin: 01/07/23 15:03 Dose: 20 meq Documented By: Admin: 01/07/23 09:18 Dose: 20 meq Documented By: RRR Imaging Data Radiologist's Impression: Chest X-Ray 01/05/23 14:54 XR chest 1V portable HISTORY: 37 years-old Male seizures acute seizure-like activity COMPARISON: 01/04/2023 TECHNIQUE: AP view of the chest FINDINGS: Cardiomediastinal and hilar silhouettes are within normal limits. No pneumothorax, pleural effusion, airspace consolidation or pulmonary edema. Bones of the chest appear grossly intact. IMPRESSION: No acute processes. ACT 112: Negative or not required by law. The above report was generated using voice recognition software. It may contain grammatical, syntax or spelling errors. Electronically signed by: Mustapha Miller M.D. 01/05/2023 3:[address] 01/05/23 14:54 CT head/brain wo con CLINICAL HISTORY: seizures Technique: Contiguous axial CT images of the head were acquired from the base of the skull to the vertex without intravenous contrast administration. Images were viewed in brain, subdural and bone windows. Automated dose lowering techniques and/or adjustment according to patient size were utilized for this exam. Comparison: Comparison is made to CT head 11/13/2022 Findings: The ventricles, basal cisterns, and cerebral sulci are normal. There is no acute intracranial hemorrhage or evidence of acute territorial infarction. Neither mass effect, shift of the midline structures, nor abnormal extra-axial fluid collections are shown. Imaged portions of the paranasal sinuses and mastoid air cells are clear. The orbits appear normal. There are no acute fractures of the calvaria or scalp swelling. Impression: No acute intracranial hemorrhage, no evidence of acute territorial infarction or other acute intracranial disease process. ACT 112: Negative or not required by law. Electronically signed by: Micah Delgado M.D. 01/05/2023 4:55 PM Discharge Plan Visit Data Chief Complaint: Alcohol Withdrawal Stated Complaint: SEIZURE ED Provider: Carolina Means Discharge Problem: Seizure, Alcohol withdrawal, Hypokalemia, Contusion, Thrombocytopenia, Alcoholic hepatitis, Hypomagnesemia Patient Disposition: Admitted As Inpatient Discharge Instructions Interventions: ED Discharge Assessment Last Done: 01/05/23 21:15
[2023-01-05] MEDS ORDERED: ONDANSETRON INJ 2 MG/ML 2 ML VIAL IV STA (17:58)
[2023-01-05] MEDS ORDERED: PANTOPRAZOLE BOLUS/DRIP 1 EACH IV STA (17:58)
[2023-01-05] MEDS ORDERED: PANTOprazole 80 MG in DEXTROSE 5% 100 ML IV ONE (17:58)
[2023-01-05] MEDS ORDERED: PANTOprazole 40 MG in DEXTROSE 5% 100 ML IV SCH (18:15)
--- NOTE | 2023-01-05 18:16 | History & Physical Report ---
Date of Service January 05, 2023 Assessment & Plan (1) Alcohol withdrawal seizure: Plan: Recent admission for the same in October. No need for Keppra given alcohol level positive yesterday, seizure due to alcohol withdrawal Medical capacity not assessed at this time AWSS with lorazepam 1-3mg PRN ordered, discussed with Dr Duarte and will likely be placed on scheduled dosing in the ICU, deferred Librium taper (2) Hypophosphatemia: Plan: Phosphorus 1.2 K Phos 40 mmol over 6 hours, approx 166m/hr therefore no need for further maintenance fluids during this time. (3) Hypokalemia: Plan: KCl 40 meq PO given in ER (+ 60 meq IV in K Phos ordered) Repeat BMP in AM (4) Tongue laceration: Plan: NPO currently Pantoprazole 40mg IV BID in case bleed is from lower down Trend CBC Consider ENT consult if not improving (5) Respiratory alkalosis: Plan: Suspect from tachypnea With some metabolic alkalosis - will improve as seizures are treated (6) Alcoholic hepatitis: Plan: INR 1.1, Platelets 25 Maddrey's discriminant function 0, good prognosis Given thrombocytopenia outp of proportion to hepatitis consider hematology consult Plan VTE prophylaxis - contraindicated Diet - NPO pending evaluation in ICU Disposition - admit to ICU Admission and Anticipated Discharge Date Admission Date: January 05, 2023 History of Present Illness Chief Complaint: Seizure Primary Care Provider: NO PCP Tristin Alvares is a 37 year old with alcohol use disorder who presents to the ER following multiple seizures at home. He is unable to remember the seizures or able to tell me when his last drink was. He tells me he last drank alcohol several weeks ago and cannot understand why he is having seizures. He was seen in the ER yesterday with hallucinations with a positive alcohol level. He eventually signed out against medical advice despite initially requesting treatment for withdrawal. His girlfriend at bedside reports he stopped drinking 36 hours ago. He has had 2 seizures earlier today with EMS called after each one and him refusing transportation to the hospital. After the third seizure he allowed them to transport him to the emergency room. He was given diazepam 5mg IV x2 in the ER for alcohol withdrawal. No further seizures. He has been spitting up blood in the ER which he feels is from a tongue laceration. Bright red blood on vomit bags. He was therefore started on pantoprazole IV bolus and drip. He was referred to medicine for admission and ongoing management. Allergies Allergy/AdvReac Type Severity Reaction Status Date / Time No Known Allergies Allergy Unverified 11/07/22 08:59 Home Medications Medication Instructions Recorded Confirmed Type No Known Home Medications 01/05/23 01/05/23 History Past Med/Surg History Medical History Acute hypokalemia Acute hyponatremia Alcohol abuse Alcohol withdrawal seizure Surgical History No significant past surgical history Social History Smoking Status: Current every day smoker Tobacco Type: Cigarettes and E-cigarettes / Vaping Hx Alcohol Use: Yes Alcohol type: beer Alcohol type Comment: hard seltzers Hx Substance Use: Yes Non-Prescribed Medications: Crack / Cocaine and Methamphetamines Last Used Substance Other:: years ago per significant other Preferred Language: Maori Communication Ability: Effective Deck Scaler Required: No Beliefs That Will Affect Care: None Current Living Situation: Significant Other Other Information That Helps Us Care for You: No Feels Safe at Home: Yes Safety Concerns: Feels Safe At This Time Gender Identity: Male Assistive Devices: Contacts and Glasses Review of Systems Review of Systems: All systems reviewed & are unremarkable except as noted in HPI & below Physical Exam Constitutional: WD/WN, vitals as above Eyes: PERRL, conjunctivae normal, anicteric sclerae ENMT: Mouth: + tongue abnormality (laceration on left side with dena blood present) Neck: trachea midline, no thyromegaly Respiratory: normal respiratory effort, lungs clear to auscultation Cardiovascular: Rate/Rhythm: regular rhythm and + tachycardic Heart Sounds: no murmur Extremities: normal capillary refill; no calf tenderness and no pedal edema Gastrointestinal (Abdomen): normal bowel sounds, soft, nontender, no hepatosplenomegaly Skin: no rashes, warm and dry Neurologic: moves all extremities, awake and + confused; no focal motor deficits Speech / Cognition: normal speech Motor/Sensory: + tremor (postural); no pronator drift Cranial Nerves: PERRL, normal accommodation, EOM intact bilaterally, normal facial strength, able to rotate head bilaterally, able to elevate shoulders bilaterally and symmetric palate elevation Psychiatric: A+Ox3, euthymic affect Genitourinary: no CVA tenderness Results & Data Results & Data Vital Signs (Past 12 Hours) Vital Signs Temp Pulse Resp BP Pulse Ox O2 Del Method 01/05/23 16:41 127 H 01/05/23 14:55 37.7 C H 140 H 15 116/73 92 Room Air Laboratory Results Abnormal lab results 01/05/23 01/05/23 01/05/23 Range/Units 15:00 15:00 15:10 RBC 3.73 L (4.70-6.10) M/uL Hgb 12.5 L D (14.0-18.0) g/dl POC Hgb (14.0-18.0) g/dl Hct 35.1 L (42.0-52.0) % POC Hct (42-52) % Plt Count 25 L* (130-400) K/uL MPV 13.0 H (9.4-12.4) fL Lymph # (Auto) 0.15 L (1.2-3.4) K/uL Platelet Estimate Decreased L (Normal) ABG pH 7.58 H* (7.35-7.45) ABG pCO2 28 L (35-46) mmHg ABG HCO3 26 H (19-24) mmol/L ABG O2 Saturation 98.1 H (90-95) % ABG Base Excess 5.2 H (-9-1.8) mEq/L POC Sodium (135-144) mmol/L Sodium 133 L (136-145) mmol/L POC Potassium (3.3-5.0) mmol/L Potassium 2.7 L (3.5-5.1) mmol/L POC Chloride (101-112) mmol/L Chloride 92 L (98-107) mmol/L POC Total CO2 (24-31) mmol/L Anion Gap 18 H (3-11) POC BUN (7-18) mg/dl BUN/Creatinine Ratio 8.0 L (10-20) Glucose 146 H (70-99(Fasting)) mg/dl POC Glucose (other) (70-99) mg/dl POC Ioniz Calcium Radha (1.12-1.32) mmol/l Magnesium 1.5 L (1.7-2.4) mg/dl Total Bilirubin 1.8 H D (0.2-1.0) mg/dl AST 240 H (13-39) U/L ALT 99 H (7-52) U/L Lipase 108 H (11-82) U/L 01/05/23 Range/Units 15:14 RBC (4.70-6.10) M/uL Hgb (14.0-18.0) g/dl POC Hgb 13.6 L (14.0-18.0) g/dl Hct (42.0-52.0) % POC Hct 40 L (42-52) % Plt Count (130-400) K/uL MPV (9.4-12.4) fL Lymph # (Auto) (1.2-3.4) K/uL Platelet Estimate (Normal) ABG pH (7.35-7.45) ABG pCO2 (35-46) mmHg ABG HCO3 (19-24) mmol/L ABG O2 Saturation (90-95) % ABG Base Excess (-9-1.8) mEq/L POC Sodium 132 L (135-144) mmol/L Sodium (136-145) mmol/L POC Potassium 2.7 L (3.3-5.0) mmol/L Potassium (3.5-5.1) mmol/L POC Chloride 92 L (101-112) mmol/L Chloride (98-107) mmol/L POC Total CO2 22 L (24-31) mmol/L Anion Gap (3-11) POC BUN 4 L (7-18) mg/dl BUN/Creatinine Ratio (10-20) Glucose (70-99(Fasting)) mg/dl POC Glucose (other) 150 H (70-99) mg/dl POC Ioniz Calcium Radha 1.11 L (1.12-1.32) mmol/l Magnesium (1.7-2.4) mg/dl Total Bilirubin (0.2-1.0) mg/dl AST (13-39) U/L ALT (7-52) U/L Lipase (11-82) U/L Diagnostic Findings CT head/brain wo con CLINICAL HISTORY: seizures Technique: Contiguous axial CT images of the head were acquired from the base of the skull to the vertex without intravenous contrast administration. Images were viewed in brain, subdural and bone windows. Automated dose lowering techniques and/or adjustment according to patient size were utilized for this exam. Comparison: Comparison is made to CT head 11/13/2022 Findings: The ventricles, basal cisterns, and cerebral sulci are normal. There is no acute intracranial hemorrhage or evidence of acute territorial infarction. Neither mass effect, shift of the midline structures, nor abnormal extra-axial fluid collections are shown. Imaged portions of the paranasal sinuses and mastoid air cells are clear. The orbits appear normal. There are no acute fractures of the calvaria or scalp swelling. Impression: No acute intracranial hemorrhage, no evidence of acute territorial infarction or other acute intracranial disease process. XR chest 1V portable HISTORY: 37 years-old Male seizures acute seizure-like activity COMPARISON: 01/04/2023 TECHNIQUE: AP view of the chest FINDINGS: Cardiomediastinal and hilar silhouettes are within normal limits. No pneumothorax, pleural effusion, airspace consolidation or pulmonary edema. Bones of the chest appear grossly intact. IMPRESSION: No acute processes. Medications Administered ER Medications Given: NSS @ 125ml/hr Diazepam 5mg IV Famotidine 20mg IV Magnesium sulfate 1g IV Potassium chloride 40 meq PO LR @ 250ml/hr ECG Rate (beats per minute): 132 Rhythm: sinus tachycardia Findings: no acute ischemic change Comparison ECG Date: from (January 04, 2023) Change: the following changes noted (increased rate) Code Status & VTE Plan Code Status Full - presumed VTE Prophylaxis Plan VTE Prophylaxis will be ordered: No PG Care Time/CCT Total # of Minutes Spent Total Time Spent with Patient: Total time spent is greater than 50% in coordination of care (as documented) at patient's floor/unit and/or counseling patient: Coding Level of Care Code 82967 INT INP/OBS CARE 75MIN Diagnoses Alcohol withdrawal seizure F10.939; R56.9 Hypophosphatemia E83.39 Hypokalemia E87.6 Tongue laceration S01.512A Respiratory alkalosis E87.3 Alcoholic hepatitis K70.10
[2023-01-05 18:44] LABS: Appearance Urine Clear (Clear); Bacteria Urine Automated Negative (Negative); Bilirubin Urine Negative (Negative); Blood Urine Trace (Negative); Color Urine Orange; Glucose Urine UA Negative (Negative); Ketones Urine 1+ (Negative); Leukocyte Esterase Urine Negative (Negative); Nitrite Urine Negative (Negative); Protein Urine Negative (Negative); RBC Urine Automated 0-4 /hpf (0-4); Specific Gravity Urine 1.012 (1.000-1.030); Urobilinogen Urine Positive (Negative)
[2023-01-05 19:23] LABS: Amphetamines+Metham, Urine Neg (Neg); Barbiturates, Urine Neg (Neg); Benzodiazepine, Urine Pos (Neg); Cocaine, Urine Neg (Neg); MDMA (Ecstacy), Urine Neg (Neg); Methadone, Urine Neg (Neg); Opiate, Urine Neg (Neg); Phencyclidine, Urine Neg (Neg)
[2023-01-05 19:31] LABS: C Reactive Protein 0.89 mg/dl (0-0.5)
[2023-01-05 19:33] LABS: Acetaminophen < 3 ug/ml (10-30); Salicylate < 3.0 mg/dl (3.0-30)
[2023-01-05 19:42] LABS: Phosphorus 1.2 mg/dl (2.5-4.9)
[2023-01-05] MEDS ORDERED: POTASSIUM PHOS 3 MMOL/1 ML INFUSION IV STA (20:10)
[2023-01-05] MEDS ORDERED: POTASSIUM PHOSPHATE 40 MMOL in SODIUM CHLORIDE 0.9% 1000ML 1,000 ML IV ONE (20:15)
[2023-01-05] MEDS ORDERED: Ativan IV Alcohol Withdrawal--Active Protocol IV PRN (21:10)
[2023-01-05] MEDS ORDERED: LORazepam 2 MG/1 ML VIAL IV PRN ×2 (21:10)
[2023-01-05] MEDS ORDERED: PANTOprazole 40 MG in SYRINGE 0 ML IV SCH (21:30)
[2023-01-05] MEDS: ICU Protocol for HYPERglycemia SCH (21:33)
[2023-01-05] MEDS: MAGNESIUM SULFATE / D5W 1 GM/100 ML BAG IV SCH ×2 (21:47→23:35)
[2023-01-05] MEDS: LORazepam 2 MG/1 ML VIAL IV PRN (21:47)
--- NOTE | 2023-01-05 21:54 | Critical Care Consultation ---
Date of Consultation January 05, 2023 Assessment & Plan (1) Alcohol withdrawal: Reason Critically Ill: 37-year-old male with a history of alcohol abuse now presents to the ICU following 3 seizures related to alcohol withdrawal and delirium tremens. Patient also developed upper GI bleed with hematemesis. Neuro - Delirium tremenssecondary to alcohol withdrawal. Patient reports drinking 12 white claws per day. He has a history of seizures related to withdrawal and had 3 earlier today. He received Versed in route via EMS and 5 mg Valium x3 doses in the ED. Will order KENNETH S scale with Ativan as needed. Consider Precedex if DTs become refractory. Seizure precautions. Thiamine, folic acid. We will en courage total abstinence from alcohol. Continue treatment ICU for now. History of suicidal ideation/depressionpatient with previous suicide attempt from overdose in September and does report having SI within the past month. Currently on suicide precautions with one-on-one sitter. Psych consulted. Cardiac - Sinus tachycardia likely due to alcohol withdrawal. Heart rate currently in the low 100s on monitor. EKG without ST elevation and QTc 450. Continuous monitoring on telemetry for now. Currently hemodynamically stable Respiratory - No history of pulmonary disease. Patient does have tongue laceration from biting his tongue during a seizure earlier today but no evidence of upper airway obstruction. Continue to monitor for now. Continuous monitoring on pulse ox. GI - Acute GI bleedpatient with hematemesis And upper GI bleed. Likely related to alcohol abuse. Patient started on Protonix drip. H&H stable and will continue to trend every 6 hours. INR within normal limits. GI consulted. TransaminitisCT abdomen and pelvis with severe hepatic steatosis and hepatomegaly. This is likely due to alcohol abuse. Ammonia pending. INR was within normal limits. We will continue to trend LFTs. Monitor RENAL/LYTES - Creatinine within normal limits, monitor routine BMPs. Patient with significant electrolyte abnormalities and currently repleting. Continue with IV fluid r esuscitation while NPO. Monitor - Strict I's and O's ENDO - No history of diabetes or thyroid disease. ICU hyperglycemic protocol HEME - Thrombocytopeniaplatelet count currently at 28,000, likely due to liver failure/bone marrow suppression in the setting of alcohol abuse. We will continue to monitor with routine CBC. May consider platelet transfusion if there is a drop in hemoglobin due to upper GI bleed, but currently stable. ID - No indication for infectious process at this time LINES/IV ACCESS - Peripheral IVs DVT PROPHYLAXIS - SCDs, Hold anticoagulation in the setting of GI bleed with thrombocytopenia Thank you for allowing us to participate in the care of this patient. Please refer to my attending physician's documentation for any further recommendations. (2) Alcohol withdrawal seizure: (3) Tongue laceration: (4) Thrombocytopenia: (5) Self-harming behavior: (6) Unspecified mood [affective] disorder: (7) Depression: History of Present Illness Attending Physician: Darrion David MD History of Present Illness Patient is a 37-year-old male with past medical history of alcohol abuse, alcohol withdrawal seizures, depression with suicidal ideation, and hepatic steatosis who presented to the emergency department earlier today following 2 episodes of seizures related to alcohol withdrawal. Patient's girlfriend is at the bedside and was able to recall events from earlier today. Patient has been without alcohol for approximately 40 hours and he is EtOH was 0 in the ED. EMS had been called Twice prior to arrival to the ED following seizures related to alcohol withdrawal but the patient refuses transportation. On the third seizure he was taken to the hospital by EMS. On arrival to the ED the patient was showing signs of DTs and was administered 5 mg of Valium x3 doses. Patient was having vomiting with hematemesis as well and was started on Protonix drip. Lab work revealed elevated LFTs and significant thrombocytopenia. CT abdomen pelvis with Hepatomegaly with severe hepatic steatosis. Patient is now being admitted to ICU for further management at this time. Upon interview patient is a poor historian as he is showing signs of confusion and hallucinations. He currently denies fevers, sore throat or congestion, shortness of breath, chest pain or palpitations, abdominal pain, diarrhea. Patient does report a headache and vomiting which started in the emergency department. Patient does not currently report thoughts of suicidal ideation or self-harm, although he was admitted in September for SI and was seen by psychiatry. His last seizure was prior to arrival to the emergency department. Patient to remain in ICU for further management at this time. Allergies Allergy/AdvReac Type Severity Reaction Status Date / Time No Known Allergies Allergy Unverified 11/07/22 08:59 Home Medications Medication Instructions Recorded Confirmed Type No Known Home Medications 01/05/23 01/05/23 History Patient History Medical History (Updated 01/05/23 @ 20:15 by Darrion David MD) Acute hypokalemia Acute hyponatremia Alcohol abuse Alcohol withdrawal seizure Surgical History (Updated 01/05/23 @ 18:42 by Darrion David MD) No significant past surgical history Social History Smoking Status: Current every day smoker Tobacco Type: Cigarettes and E-cigarettes / Vaping Hx Alcohol Use: Yes Alcohol type: beer Alcohol type Comment: hard seltzers Hx Substance Use: Yes Non-Prescribed Medications: Crack / Cocaine and Methamphetamines Last Used Substance Other:: years ago per significant other Preferred Language: Azerbaijani Communication Ability: Effective Lye Boiler Required: No Beliefs That Will Affect Care: None Current Living Situation: Significant Other Other Information That Helps Us Care for You: No Feels Safe at Home: Yes Safety Concerns: Feels Safe At This Time Gender Identity: Male Assistive Devices: Contacts and Glasses Review of Systems Review of Systems: All systems reviewed & are unremarkable except as noted in HPI & below Physical Exam Constitutional: + altered mental status; no acute distress Eyes: PERRL, conjunctivae normal, anicteric sclerae ENMT: external ear and nose normal, oropharynx normal Neck: trachea midline, no thyromegaly Respiratory: Auscultation: lungs clear to auscultation bilaterally Cardiovascular: RRR, no murmur, no edema Rate/Rhythm: + tachycardic Heart Sounds: normal S1 and normal S2; no murmur Vessels: no JVD Extremities: no edema Gastrointestinal (Abdomen): normal bowel sounds, soft, nontender, no hepatosplenomegaly Musculoskeletal: no cyanosis or clubbing, extremities motor strength 5/5 Skin: no rashes, warm and dry Neurologic: Tremors noted in the upper extremities, PERRLA, oriented to self and place, no facial asymmetry or dysarthria. Psychiatric: Anxious, visual hallucinations Results & Data Results & Data Vital Signs (Past 12 Hours) Vital Signs Temp Pulse Resp BP Pulse Ox O2 Del Method 01/05/23 20:45 142 H 20 95 01/05/23 20:30 123 H 19 96 01/05/23 20:30 117/78 01/05/23 20:15 122 H 18 97 01/05/23 20:01 149 H 24 94 01/05/23 20:01 133/84 01/05/23 20:00 119 H 18 98 01/05/23 19:45 123 H 20 95 01/05/23 19:30 121 H 19 94 01/05/23 19:30 119/80 01/05/23 19:15 135 H 21 96 01/05/23 19:01 21 95 01/05/23 19:01 120/75 01/05/23 19:00 20 95 01/05/23 18:46 124 H 19 92 01/05/23 18:46 134/100 01/05/23 18:45 125 H 22 93 01/05/23 18:30 133 H 20 97 01/05/23 18:15 122 H 24 97 01/05/23 18:04 143 H 16 90 01/05/23 17:45 135 H 20 96 01/05/23 17:30 116 H 22 93 01/05/23 17:30 152/94 H 01/05/23 17:23 120 H 16 95 01/05/23 17:23 141/99 H 01/05/23 17:15 126 H 16 97 01/05/23 17:00 116 H 16 93 01/05/23 16:45 117 H 18 96 01/05/23 16:36 128 H 16 97 01/05/23 16:15 122 H 16 98 01/05/23 16:00 124 H 23 98 01/05/23 15:45 122 H 16 98 01/05/23 15:30 117 H 24 94 01/05/23 15:15 133 H 23 95 01/05/23 15:00 134 H 23 94 01/05/23 14:58 133 H 16 95 01/05/23 19:00 16 98 01/05/23 16:41 127 H 01/05/23 14:55 37.7 C H 140 H 15 116/73 92 Room Air Coding Level of Care Code 62940 IN/OBS CONSULT LVL 4,60M Diagnoses Alcohol withdrawal F10.939 Alcohol withdrawal seizure F10.939; R56.9 Tongue laceration S01.512A Thrombocytopenia D69.6 Self-harming behavior Unspecified mood [affective] disorder F39 Depression F32.A Time Spent (min) 65
[2023-01-05] MEDS ORDERED: ONDANSETRON INJ 2 MG/ML 2 ML VIAL IV PRN (22:13)
[2023-01-05 22:29] LABS: Gastric Occult Blood Positive (Negative); pH Gastric Fluid 7+
[2023-01-05 23:09] LABS: Hematocrit (blood only) 33.3 % (42.0-52.0); Hemoglobin 12.1 g/dl (14.0-18.0)
[2023-01-05] MEDS: PANTOprazole 40 MG in DEXTROSE 5% 100 ML IV SCH (23:35)
[2023-01-06 01:52] LABS: BUN Creatinine Ratio 9.6 (10-20); Calcium 8.3 mg/dl (8.6-10.3); Creatinine Clr Calc Pharmacy 127.5 ml/min; Est GFR (African American) 139.3 ml/min; Est GFR (Non-African American) 120.2 ml/min; Magnesium 2.7 mg/dl (1.7-2.4); Phosphorus 4.7 mg/dl (2.5-4.9); Potassium 3.5 mmol/L (3.5-5.1)
[2023-01-06] MEDS: PANTOprazole 40 MG in DEXTROSE 5% 100 ML IV SCH ×5 (04:03→22:50)
[2023-01-06 05:36] LABS: Hematocrit (blood only) 34.7 % (42.0-52.0); Hemoglobin 12.4 g/dl (14.0-18.0); Mean Corpuscular Hemoglobin 34.1 pg (25.0-34.0); Mean Corpuscular Hgb Conc 35.7 g/dL (32.0-36.0); Mean Corpuscular Volume 95.3 fL (80.0-100.0); Mean Platelet Volume 12.7 fL (9.4-12.4); Platelet Count 21 K/uL (130-400); RDW Standard Deviation 45.5 fL (36.4-46.3); Red Blood Count 3.64 M/uL (4.70-6.10); White Blood Count 3.74 K/ul (4.8-10.8)
[2023-01-06 05:42] LABS: INR 1.1 (0.9-1.1); Prothrombin Time 12.4 Seconds (9.0-12.0)
[2023-01-06 05:45] LABS: Bilirubin,Total 2.4 mg/dl (0.2-1.0); Calcium 8.7 mg/dl (8.6-10.3); Magnesium 2.4 mg/dl (1.7-2.4); Potassium 3.1 mmol/L (3.5-5.1)
--- NOTE | 2023-01-06 05:50 | Electrocardiogram Report ---
Test Reason : Blood Pressure : / mmHG Vent. Rate : 132 BPM Atrial Rate : 132 BPM P-R Int : 152 ms QRS Dur : 074 ms QT Int : 298 ms P-R-T Axes : 051 066 020 degrees QTc Int : 441 ms Sinus tachycardia Otherwise normal ECG When compared with ECG of 04-JAN-2023 06:42, Vent. rate has increased BY 44 BPM Confirmed by Pj Espinoza ([id number]) on 01/06/2023 5:50:23 AM Referred By: Confirmed By:Pj Espinoza
[2023-01-06 06:00] LABS: Basophils # (auto) 0.01 K/uL (0-0.2); Basophils % (auto) 0.3 %; Immature Granulocytes # (auto) 0.01 K/uL (0.01-0.20); Immature Granulocytes % (auto) 0.3 %; Lymphocytes # (auto) 0.44 K/uL (1.2-3.4); Lymphocytes % (auto) 11.8 %; Monocytes # (auto) 0.11 K/uL (0.11-0.59); Monocytes % (auto) 2.9 %; Neutrophils # (auto) 3.17 K/uL (1.40-6.50); Neutrophils % (auto) 84.7 %; Ovalocytes 1+
[2023-01-06] MEDS ORDERED: PLASMA-LYTE A 1,000 ML IV SCH (06:00)
[2023-01-06 06:05] LABS: Albumin Globulin Ratio 1.5 (0.9-2); BUN Creatinine Ratio 7.6 (10-20); Creatinine Clr Calc Pharmacy 117.8 ml/min; Est GFR (African American) 134.8 ml/min; Est GFR (Non-African American) 116.3 ml/min; Globulin 2.6 gm/dl (2.5-4.0); Phosphorus 3.2 mg/dl (2.5-4.9); Total Protein 6.6 gm/dl (6.0-8.3)
[2023-01-06] MEDS: POTASSIUM CHLORIDE / WTR 10 MEQ/100 ML PLCT IV SCH ×6 (06:43→14:24)
--- NOTE | 2023-01-06 07:33 | Hospitalist Progress Note ---
Date of Service January 06, 2023 Assessment & Plan (1) Alcohol withdrawal seizure: Plan: Acute on chronic Recent admission for the same in October. No need for Keppra given alcohol level positive on admission, seizure due to alcohol withdrawal AWSS with lorazepam 1-3mg PRN ordered, discussed with Dr Duarte and will likely be placed on scheduled dosing in the ICU, once stable for 24 hours may convert to Librium for ease of discharge and also consider gabapentin if needed Patient will need to have referred to alcohol outpatient treatment programs this is multiple times for this patient (2) Hypophosphatemia: Plan: acute self limited ; replete hypokalemia, acute, self limited replete (3) Tongue laceration: Plan: Patient will have a soft and liquid diet tongue is healing Pantoprazole 40mg IV BID (4) Respiratory alkalosis: Plan: Suspect from tachypnea metabolic alkalosis -self-limited resolved (5) Alcoholic hepatitis: Plan: Mahnaz's discriminant function 0, good prognosis Given thrombocytopenia possible splenic sequestration Plan VTE prophylaxis -contraindicated with thrombocytopenia Admission and Anticipated Discharge Date Admission Date: January 05, 2023 Subjective Patient awake alert and conversant. Patient denies suicidal ideation at this time. Patient does have a tremor he is slightly sedate. ICU has started him on scheduled lorazepam 2 mg every 6 hours Physical Exam Physical Exam: Awake alert appropriate slightly drowsy he has no tremor card exam is regular lungs are clear Results & Data Results & Data Vital Signs (Past 12 Hours) Vital Signs Temp Pulse Pulse Resp BP BP Pulse Ox 01/06/23 06:00 92 H 13 108/75 97 01/06/23 05:00 88 17 110/73 96 01/06/23 04:00 98.1 F 120 H 19 110/83 99 01/06/23 03:00 101 H 13 108/61 97 01/06/23 02:00 97 H 18 106/82 98 01/06/23 01:00 99 H 19 101/72 97 01/06/23 00:00 98.8 F 102 H 14 103/75 95 01/06/23 00:00 136 H 01/05/23 23:01 114 H 17 112/79 96 01/05/23 23:00 124 H 15 01/05/23 22:02 127 H 16 96 01/05/23 22:00 123/87 93 01/05/23 21:09 99.1 F 151 H 30 H 122/89 98 01/05/23 21:10 120 H 01/05/23 21:20 99.1 F 146 H 20 122/89 98 01/05/23 20:45 142 H 20 95 01/05/23 20:30 123 H 19 96 01/05/23 20:30 117/78 01/05/23 20:15 122 H 18 97 01/05/23 20:01 149 H 24 94 01/05/23 20:01 133/84 01/05/23 20:00 119 H 18 98 01/05/23 19:45 123 H 20 95 01/05/23 19:30 121 H 19 94 01/05/23 19:30 119/80 O2 Del Method 01/06/23 06:00 Room Air 01/06/23 05:00 01/06/23 04:00 01/06/23 03:00 01/06/23 02:00 Room Air 01/06/23 01:00 Room Air 01/06/23 00:00 Room Air 01/06/23 00:00 01/05/23 23:01 Room Air 01/05/23 23:00 01/05/23 22:02 01/05/23 22:00 01/05/23 21:09 01/05/23 21:10 01/05/23 21:20 Room Air 01/05/23 20:45 01/05/23 20:30 01/05/23 20:30 01/05/23 20:15 01/05/23 20:01 01/05/23 20:01 01/05/23 20:00 01/05/23 19:45 01/05/23 19:30 01/05/23 19:30 Laboratory Results Reviewed CBC Reviewed coagulation studies Reviewed chemistry Discussed with intensive care unit resident PG Care Time/CCT Total # of Minutes Spent Total Time Spent with Patient: Total time spent is greater than 50% in coordination of care (as documented) at patient's floor/unit and/or counseling patient: Coding Level of Care Code 95844 SUB INP/OBS CARE 3/50MIN Diagnoses Alcohol withdrawal seizure F10.939; R56.9 Hypophosphatemia E83.39 Tongue laceration S01.512A Respiratory alkalosis E87.3 Alcoholic hepatitis K70.10
[2023-01-06] MEDS: LORazepam 2 MG/1 ML VIAL IV PRN (07:48)
--- NOTE | 2023-01-06 07:54 | Critical Care Progress Note ---
Date of Service January 06, 2023 Assessment & Plan (1) Hematemesis: (2) Alcoholic hepatitis: (3) Alcohol withdrawal seizure: (4) Alcohol withdrawal: (5) Hypokalemia: (6) Depression: (7) Transaminitis: (8) Alcohol use disorder, severe, dependence: (9) Thrombocytopenia: Plan Reason Critically Ill: 37-year-old male with a history of alcohol abuse now presents to the ICU following 3 seizures related to alcohol withdrawal and delirium tremens. Patient also developed upper GI bleed with hematemesis. May be downgraded from ICU care at this time. Neuro - Delirium tremens 2/2 alcohol withdrawal Patient reports drinking 12 white claws per day, as well as a liter of vodka on some days. Has a history of seizures related to withdrawal. Required Versed in the EMS as well as in the ED x4 doses. Has not had a seizure since last dose of Versed at 1800 on 01/05. KENNETH protocol in place. Has required a total of 4 mg of Ativan since last dose of Versed. Continue daily thiamine and folic acid. Encourage abstinence from alcohol. Start Ativan 2 mg IV every 6 hours for the next 2 days given patient's extensive withdrawal history of seizures with DTs. May be downgraded from ICU care at this time given that seizures are well cont rolled. History of suicide ideation and depression Patient with multiple previous suicide attempts last episode in September of this year. Currently on suicide precautions with one-to-one sitter. Psych consulted, appreciate recommendations. Does not report any SI at this time or within the last month. Does not currently take any at home medication for depression. Cardiac - Initially having sinus tachycardia on presentation. EKG without ST elevation in a QTc of 450. Heart rate decreasing as of this morning, though still elevated in the 90s. Most likely secondary to alcohol withdrawal. Hemodynamically stable. Continue to monitor on telemetry. Sinus tachycardia likely due to alcohol withdrawal. Heart rate currently in the low 100s on monitor. EKG without ST elevation and QTc 450. Continuous monitoring on telemetry for now. Currently hemodynamically stable Respiratory - No history of any pulmonary disease. Patient did have a laceration of the tongue secondary to biting during seizure. Improved at this time and no longer having hematemesis. We will continue continuous monitoring on pulse ox. GI - Hematemesis Patient having hematemesis with history of chronic alcohol abuse. Hematemesis most likely secondary to tongue laceration during seizure episode. GI consulted given possibility of upper GI bleed. Started on Protonix drip. H&H stable, continue to trend every [address] abdomen and pelvis with severe hepatic steatosis and hepatomegaly. Most likely secondary to alcohol abuse. INR within normal limits. AST and ALT continue to rise. Maddrey's Discriminantscore of 4.2 representing a good prognosis. No steroids needed at this time. Continue to monitor. Continue monitoring LFTs until peak. RENAL/LYTES - Creatinine within normal limits. Patient with significant electrolyte abnormalities. Repleted. Continue IV fluids while NPO. - Strict I's and O's ENDO - No history of diabetes or thyroid disease. ICU hyperglycemic protocol HEME - Thrombocytopenia Thrombocytopenia continuing to decline. Currently at 21,000. Thrombocytopenia most likely due to alcohol abuse. Continue to monitor CBCs at this time. No acute intervention needed. Continue to monitor H&H due to possibility of upper GI bleed. ID - No indication for infectious process at this time LINES/IV ACCESS - Peripheral IVs DVT PROPHYLAXIS - SCDs, Hold anticoagulation in the setting of GI bleed with thrombocytopenia Thank you for allowing us to participate in the care of this patient. Please refer to my attending physician's documentation for any further recommendations. Admission and Anticipated Discharge Date Admission Date: January 05, 2023 Supervising Physician Co-Signing Physician Notes Was the resident-physician during care of patient. I separately evaluated patient for harris portions of the history and the exam. I was present during the critical portion of medical decision making, and I discussed the case with the resident. I generally agree with the findings and plan except for any additions/exceptions noted. Patient seen and examined at bedside. No acute distress, no adverse events overnight Since he came to the ICU he got total 4 mg of Ativan based on his CIWA score At the time of examination he denied any chest pain, did complain of mild abdominal pain and nausea. Has not had any hemoptysis or hematemesis since coming to the hospital He was awake alert oriented. Answering all the questions appropriately. Denied any hallucination, no delusion. Constitutional: No acute distress HEENT: EOMI, PERRLA Respiratory system: Good air entry bilaterally, no wheeze, no rhonchi, no crackles CVS: S1-S2 positive, no murmurs or gallops Abdomen: Soft, nontender, nondistended, positive bowel sounds x4 Extremities: +2 pulses bilaterally radialis/ dorsalis pedis, no cyanosis, no edema Neuro: Awake alert oriented x3 Psych: Normal mood and affect G/U: No Alvarez --Prophylaxis VTE: IPC GI: Protonix drip Lines: Peripheral Diet: N.p.o. Plan: In/out: +2.5 L, urine output 1301 Potassium being replaced Patient does have chronic thrombocytopenia. Continue to trend Put the patient on standing 2 mg every 6 hours or Ativan. Continue with CIWA protocol on top of that. Discriminant factor is only 4. Does not qualify for steroids. Patient is hemodynamically stable to be downgrade to medical floor. Case was discussed with Dr. Lewis Please note the above document was generated using voice recognition software. It may contain grammatical, syntax or spelling errors.Any formal questions or concerns about the content, text or information contained within the body of this dictation should be directly addressed to the provider for clarification. Subjective Patient was seen bedside this morning. Denies any visual or auditory hallucinations at this time. States that he is nauseous and having some bouts of emesis, though having less blood. Denies any suicidal ideation at this time. Review of Systems Review of Systems: All systems reviewed & are unremarkable except as noted in Subjective Physical Exam Constitutional: cooperative; no acute distress Eyes: PERRL, conjunctivae normal, anicteric sclerae Respiratory: normal respiratory effort, lungs clear to auscultation Cardiovascular: RRR, no murmur, no edema Gastrointestinal (Abdomen): normal bowel sounds, soft, nontender, no hepatosplenomegaly Musculoskeletal: no cyanosis or clubbing, extremities motor strength 5/5 Skin: no rashes, warm and dry Neurologic: patellar DTR's 2+ bilat, sensation intact Psychiatric: Orientation: alert and oriented x 3 Results & Data Results & Data Vital Signs (Past 12 Hours) Vital Signs Temp Pulse Pulse Resp BP BP Pulse Ox 01/06/23 07:00 36.6 C 89 22 112/72 95 01/06/23 06:00 92 H 13 108/75 97 01/06/23 05:00 88 17 110/73 96 01/06/23 04:00 36.7 C 120 H 19 110/83 99 01/06/23 03:00 101 H 13 108/61 97 01/06/23 02:00 97 H 18 106/82 98 01/06/23 01:00 99 H 19 101/72 97 01/06/23 00:00 37.1 C 102 H 14 103/75 95 01/06/23 00:00 136 H 01/05/23 23:01 114 H 17 112/79 96 01/05/23 23:00 124 H 15 01/05/23 22:02 127 H 16 96 01/05/23 22:00 123/87 93 01/05/23 21:09 37.3 C 151 H 30 H 122/89 98 01/05/23 21:10 120 H 01/05/23 21:20 37.3 C 146 H 20 122/89 98 01/05/23 20:45 142 H 20 95 01/05/23 20:30 123 H 19 96 01/05/23 20:30 117/78 01/05/23 20:15 122 H 18 97 01/05/23 20:01 149 H 24 94 01/05/23 20:01 133/84 01/05/23 20:00 119 H 18 98 O2 Del Method 01/06/23 07:00 Room Air 01/06/23 06:00 Room Air 01/06/23 05:00 01/06/23 04:00 01/06/23 03:00 01/06/23 02:00 Room Air 01/06/23 01:00 Room Air 01/06/23 00:00 Room Air 01/06/23 00:00 01/05/23 23:01 Room Air 01/05/23 23:00 01/05/23 22:02 01/05/23 22:00 01/05/23 21:09 01/05/23 21:10 01/05/23 21:20 Room Air 01/05/23 20:45 01/05/23 20:30 01/05/23 20:30 01/05/23 20:15 01/05/23 20:01 01/05/23 20:01 01/05/23 20:00 Laboratory Results 01/06/23 05:24 01/06/23 05:24 Resident Activity Tracking Resident Involvement: Resident Care Provided Care Provided: Adult Hospital Medicine
[2023-01-06] MEDS: FOLIC ACID 1 MG in SYRINGE 9.8 ML IV SCH (08:16)
[2023-01-06] MEDS: THIAMINE HCL 250 MG in SODIUM CHLORIDE 0.9% 50 ML IV SCH (08:17)
[2023-01-06] MEDS: ICU Protocol for HYPERglycemia SCH ×2 (08:54→13:00)
--- NOTE | 2023-01-06 09:44 | Gastrointestinal Consultation ---
Date of Consultation January 06, 2023 Assessment & Plan (1) Hematemesis: Unclear if really true GI bleeding or related to tongue laceration. -Can transition to IV Protonix 40 mg BID -Monitor H/H -Hold off on endoscopic evaluation and monitor for overt GI bleeding -Supportive care and treatment of alcohol withdrawal per primary team -Given history of alcohol abuse, can consider outpatient EGD when acute picture resolves History of Present Illness Reason for Consultation: "upper GI bleed" Attending Physician: Dixon Lewis MD History of Present Illness Patient is a 37 yo male with PMH of alcohol abuse who presented to the ED via EMS due to experiencing multiple seizures at home. He was seen in the ED the day prior to these symptoms due to hallucinations and positive alcohol level and signed out AMA. Apparently he stopped drinking about 48 hours ago. Seizures began yesterday. He has a tongue laceration. He had spit up bright red blood. H/H presently 12.3/34.7. He denies melena. No history of PUD. Rare NSAID use. Occasional heartburn or reflux as an outpatient. He is currently on Protonix gtt. No pertinent family history. He has a 1:1 presently for suicidal ideations. He is under hospitalist management for alcohol withdrawal. Allergies Allergy/AdvReac Type Severity Reaction Status Date / Time No Known Allergies Allergy Unverified 11/07/22 08:59 Home Medications Medication Instructions Recorded Confirmed Type No Known Home Medications 01/05/23 01/05/23 History Patient History Medical History Acute hypokalemia Acute hyponatremia Alcohol abuse Alcohol withdrawal seizure Surgical History No significant past surgical history Social History Smoking Status: Current every day smoker Tobacco Type: Cigarettes and E-cigarettes / Vaping Hx Alcohol Use: Yes Alcohol type: beer Alcohol type Comment: karen cartagena Hx Substance Use: Yes Non-Prescribed Medications: Crack / Cocaine and Methamphetamines Last Used Substance Other:: years ago per significant other Preferred Language: Lao Communication Ability: Effective Loan Collector Required: No Beliefs That Will Affect Care: None Current Living Situation: Significant Other Other Information That Helps Us Care for You: No Feels Safe at Home: Yes Safety Concerns: Feels Safe At This Time Gender Identity: Male Assistive Devices: Contacts and Glasses Review of Systems Constitutional: no fever and no chills Respiratory: no cough and no dyspnea Cardiovascular: no chest pain Gastrointestinal: no abdominal pain, no blood in stools and no melena Psychiatric: + suicidal ideation Physical Exam Constitutional: well developed Respiratory: normal respiratory effort Cardiovascular: Rate/Rhythm: regular rate Gastrointestinal (Abdomen): normal bowel sounds, soft, nontender, no hepatosplenomegaly Musculoskeletal: Head/Neck/Chest: normocephalic Psychiatric: Orientation: alert and oriented x 3 Results & Data Vital Signs (Past 12 Hours) Vital Signs Temp Pulse Pulse Resp BP BP Pulse Ox 01/06/23 08:00 01/06/23 08:00 92 H 01/06/23 07:00 36.6 C 89 22 112/72 95 01/06/23 06:00 92 H 13 108/75 97 01/06/23 05:00 88 17 110/73 96 01/06/23 04:00 36.7 C 120 H 19 110/83 99 01/06/23 03:00 101 H 13 108/61 97 01/06/23 02:00 97 H 18 106/82 98 01/06/23 01:00 99 H 19 101/72 97 01/06/23 00:00 37.1 C 102 H 14 103/75 95 01/06/23 00:00 136 H 01/05/23 23:01 114 H 17 112/79 96 01/05/23 23:00 124 H 15 01/05/23 22:02 127 H 16 96 01/05/23 22:00 123/87 93 O2 Del Method 01/06/23 08:00 Room Air 01/06/23 08:00 01/06/23 07:00 Room Air 01/06/23 06:00 Room Air 01/06/23 05:00 01/06/23 04:00 01/06/23 03:00 01/06/23 02:00 Room Air 01/06/23 01:00 Room Air 01/06/23 00:00 Room Air 01/06/23 00:00 01/05/23 23:01 Room Air 01/05/23 23:00 01/05/23 22:02 01/05/23 22:00 PG Care Time/CCT Total # of Minutes Spent Total Time Spent with Patient: Total time spent is greater than 50% in coordination of care (as documented) at patient's floor/unit and/or counseling patient: Coding Level of Care Code 02073 IN/OBS CONSULT LVL 4,60M Diagnoses Hematemesis K92.0
[2023-01-06 12:35] LABS: Hematocrit (blood only) 32.1 % (42.0-52.0); Hemoglobin 11.5 g/dl (14.0-18.0)
--- NOTE | 2023-01-06 12:46 | Psychiatric Consultation ---
Date of Consultation January 06, 2023 Impression / Recommendations Impression 37 y/o man with history of bipolar disorder and severe alcohol use disorder admitted with complicated withdrawal. He does not present as suicidal at this time. (1) Bipolar I disorder, most recent episode depressed, in partial remission: (2) Alcohol withdrawal seizure with complication: (3) Alcohol use disorder, severe, dependence: Plan Pt does not require suicide precautions or 1:1 monitoring at this time. He would certainly benefit from referral for alcohol [facility] program ("rehab") once medical management of withdrawal is complete. Psych History Identifying Data CYNDI ALVARES is a 37-year-old male with a history of alcohol dependence, admitted on 01/05/2023 for alcohol withdrawal. Consult is by the hospitalist service for []. Chief Complaint "It's hard to talk". History of Present Illness As part of a thorough review of the available medical records, I have read and confirmed the following ED physician notes from 01/04/2023: "This is a 37-year-old male presents emergency room due to concern for alcohol abuse and seeking treatment for alcohol withdrawal. Patient states he had been trying to cut back on his consumption of alcohol however felt unwell several hours ago and had vomiting and diarrhea. Patient states he does have shaking but that has been going on for several days. States he is hallucinating and he is requesting to be admitted for several days so he can "rest". Patient states he has been drinking heavily for quite some time. Patient states he needs medication to stop shaking. Patient admits to prior episode of self-harm. Patient states he does not otherwise use any recreational drugs" "This is a 37-year-old male who presents to the emergency department with his girlfriend demanding to be admitted for alcohol withdrawal. Patient with no obvious evidence of alcohol withdrawal on exam, and was clinically sober and able to provide complete history. Patient afebrile and vital signs stable. Labs drawn and sent, IV established, patient started on IV fluids. Due to elevations of his LFTs and lipase, patient sent for CT imaging. No obvious evidence of pancreatitis. Patient significantly intoxicated based on serum alcohol. He was monitored for several hours, and then demanded to be discharged because we did not "give him anything for his pain". Patient counseled on risks of ongoing alcohol abuse and risks of alcohol withdrawal. Patient denies any thoughts of self-harm at this time. Patient signed AMA form and girlfriend willing to take responsibility for him at this time. Ewa carcamo well-appearing at time of discharge, ambulatory with a steady gait." these ED physician notes from 01/05/2023: "This is a 37-year-old male brought in by EMS due to recurrent seizures believed to be related to alcohol withdrawal today. Patient's significant other who is also at bedside called EMS. Patient had been called to the residence 2 previous times for a seizure however both times patient return to baseline and refused transportation. Patient does have a history of alcohol abuse as well as prior alcohol withdrawal related seizures. He states his last drink was early yesterday morning." the following excerpts from the hospitalist H&P "Cyndi Alvares is a 37 year old with alcohol use disorder who presents to the ER following multiple seizures at home. He is unable to remember the seizures or able to tell me when his last drink was. He tells me he last drank alcohol several weeks ago and cannot understand why he is having seizures. He was seen in the ER yesterday with hallucinations with a positive alcohol level. He eventually signed out against medical advice despite initially requesting treatment for withdrawal. His girlfriend at bedside reports he stopped drinking 36 hours ago. He has had 2 seizures earlier today with EMS called after each one and him refusing transportation to the hospital. After the third seizure he allowed them to transport him to the emergency room. He was given diazepam 5mg IV x2 in the ER for alcohol withdrawal. No further seizures. He has been spitting up blood in the ER which he feels is from a tongue laceration. Bright red blood on vomit bags. He was therefore started on pantoprazole IV bolus and drip. He was referred to medicine for admission and ongoing management." and this note by the psychiatric liaison nurse: "Met with patient for initial psych consult. Patient resting in bed with 1:1 at bedside. He was cooperative with questions. He states that his SI started about a day or two after he stopped drinking (approximately 4 days ago). He denies having intent or a plan. He was unsure of specific stressors that would cause his SI but stated he believes he has a history of bipolar d/o and schizophrenia and thinks the SI may be because of that. He was unable to provide clear answers on his drinking prior to admission but said he drank various types of drinks but mostly vodka about every day. He states he has been inpatient for mental health and believes the last time was 3 years ago in [place]. PHQ-9 and Suicide Risk Assessment completed. On the PHQ-9 he scored a 13, stating he has had several days in the past two weeks he's been feeling down, having trouble falling asleep, and feeling bad about himself. He rated #9 a 1 saying that several days in the past two weeks he has had thoughts that he would be better off or of hurting himself. He identifies his girlfriend as being a support and a deterrent from his suicidal thoughts. Psychiatric consult service explained to patient. States he is currently interested in rehab after medical clearance. Patient made aware that the psychiatrist and liaison team will see him tomorrow to begin planning; patient verbalized understanding." Review of the medical record reveals previous psychiatric consultations here in August 2022 with suicidal ideation while intoxicated that was not present when sober and in September 2022 when he was in withdrawal but not suicidal. Pt. carries diagnosis of bipolar disorder and alcohol dependence. Review of pertinent labs reveals they are significant for leukopenia, anemia, thrombocytopenia, hyponatremia, hypokalemia, hypophosphatemia, hypomagnesemia, hyperbilirubinemia, elevated transaminases. BAL on admission was <10 mg/dL, but at the ED visit the day before it was 452 mg/dL. Pt provides a history that is demonstrably inconsistent with objective data (e.g., saying he quit drinking several weeks ago). Of note is that he did not report, and in fact denied, any suicidal thoughts to multiple clinicians until he saw the psychiatric liaison nurse, to whom he reported suicidal thoughts starting after he stopped drinking 4 days ago (though if he did stop drinking, it could only have been for ca. 2 days). He denied suicidal thoughts to me. Allergies Allergy/AdvReac Type Severity Reaction Status Date / Time No Known Allergies Allergy Unverified 11/07/22 08:59 Home Medications Medication Instructions Recorded Confirmed Type No Known Home Medications 01/05/23 01/05/23 History Patient History Medical History (Updated 01/07/23 @ 12:41 by Dom Raymond MD) Acute hypokalemia Acute hyponatremia Alcohol abuse Alcohol use disorder, severe, dependence Alcohol withdrawal seizure Surgical History No significant past surgical history Social History Smoking Status: Current every day smoker Tobacco Type: Cigarettes and E-cigarettes / Vaping Hx Alcohol Use: Yes Alcohol type: beer Alcohol type Comment: hard seltzers Hx Substance Use: Yes Non-Prescribed Medications: Crack / Cocaine and Methamphetamines Last Used Substance Other:: years ago per significant other Preferred Language: Ukrainian Communication Ability: Effective Corporate Investigator Required: No Beliefs That Will Affect Care: None Current Living Situation: Significant Other Other Information That Helps Us Care for You: No Feels Safe at Home: Yes Safety Concerns: Feels Safe At This Time Gender Identity: Male Assistive Devices: None Physical Exam Psychiatric: Orientation: oriented to person, oriented to place, oriented to time and cooperative; + not alert (drowsy) Apperance: appropriately dressed, appropriately groomed and appeared stated age Eye Contact: + fair eye contact Motor Behavior: no abnormal motor movements slow and dysarthric due to tongue injury Affect: + constricted affect Mood: + dysphoric mood Thought Process: + circumstantial thought process and + tangential thought process Thought Content: + cognitive distortions Suicidal Thoughts: denies suicidal thoughts, denies suicidal plan and denies suicidal intent Homicidal Thoughts: denies homicidal thoughts Hallucinations: no auditory hallucinations and no visual hallucinations Cognition: remote memory grossly intact; + recent memory not intact and + attention not intact Estimated Intelligence: average estimated intelligence Insight: + limited insight Judgment: + limited judgement Vital Signs (Past 24 Hours): Last Vital Signs Temp 37.2 C 01/06/23 11:13 Pulse 82 01/06/23 12:00 Resp 18 01/06/23 12:00 BP 112/70 01/06/23 12:00 Pulse Ox 97 01/06/23 12:00 O2 Del Method Room Air 01/06/23 11:13 Review of Systems Psychiatric: + depression, + confusion and + substance abuse; no hopelessness, no anhedonia, no suicidal ideation and no hallucinations Results & Data (PSY) Medications Administered Thiamine HCl 250 mg/ Sodium (Chloride) 52.5 mls @ 210 mls/hr IV QAM TERRI Stop: 06/10/23 08:59 Last Infusion: 01/06/23 08:55 Dose: 0 mls/hr Documented By: Admin: 01/06/23 08:17 Dose: 210 mls/hr Documented By: GPF Pantoprazole Sodium 40 mg/ (Dextrose) 100 mls @ 20 mls/hr IV Q5H [facility] Stop: 02/04/23 22:59 Last Admin: 01/06/23 08:17 Dose: 8 mg/hr, 20 mls/hr Documented By: Infusion: 01/06/23 08:17 Dose: 8 mg/hr, 20 mls/hr Documented By: Admin: 01/06/23 04:03 Dose: 8 mg/hr, 20 mls/hr Documented By: Infusion: 01/06/23 04:03 Dose: 8 mg/hr, 20 mls/hr Documented By: Admin: 01/05/23 23:35 Dose: 8 mg/hr, 20 mls/hr Documented By: THEO Folic Acid 1 mg/ Syringe 10 mls @ 5 mls/min IV QAM [facility] Stop: 02/05/23 08:59 Last Admin: 01/06/23 08:16 Dose: 5 mls/min Documented By: GPF Parenteral Electrolytes (Plasma-Lyte A Ph 7.4) 1,000 mls @ 80 mls/hr IV .[id number] [facility] Stop: 02/05/23 05:59 Last Admin: 01/06/23 06:43 Dose: 80 mls/hr Documented By: THEO Lorazepam (Lorazepam 2 Mg/1 Ml Vial) 2 mg IV UD PRN; Protocol PRN Reason: EtOH Withdrawal AWSS Score 8,9 Stop: 02/04/23 21:09 Last Admin: 01/06/23 07:48 Dose: 2 mg Documented By: Admin: 01/05/23 21:47 Dose: 2 mg Documented By: THEO Miscellaneous (Icu Protocol For Hyperglycemia) 1 each N/A ACHS [facility] Stop: 01/07/23 21:09 Last Admin: 01/06/23 08:54 Dose: 1 each Documented By: Admin: 01/05/23 21:33 Dose: 1 each Documented By: THEO Ondansetron HCl (Ondansetron Inj 2 Mg/Ml 2 Ml Vial) 4 mg IV Q6H PRN PRN Reason: Nausea And Vomiting Stop: 02/04/23 22:12 Last Admin: 01/06/23 07:48 Dose: 4 mg Documented By: GPF Coding Level of Care Code 62581 IN/OBS CONSULT LVL 3,45M Diagnoses Bipolar I disorder, most recent episode depressed, in partial remission F31.75 Alcohol withdrawal seizure with complication F10.939; R56.9 Alcohol use disorder, severe, dependence F10.20 Time Spent (min) 55
--- NOTE | 2023-01-06 12:51 | Billing Data ---
Date of Service January 06, 2023 Coding Level of Care Code 06570 SUB INP/OBS CARE MIN
[2023-01-06 12:57] LABS: BUN Creatinine Ratio 8.8 (10-20); Creatinine Clr Calc Pharmacy 136.8 ml/min; Est GFR (African American) 143.4 ml/min; Est GFR (Non-African American) 123.7 ml/min; Potassium 3.3 mmol/L (3.5-5.1)
[2023-01-06] MEDS: LORazepam 2 MG/1 ML VIAL IV SCH ×2 (13:46→21:01)
[2023-01-06] MEDS ORDERED: LORazepam 1 MG TAB PO SCH (14:00)
[2023-01-06 15:58] LABS: Hematocrit (blood only) 31.4 % (42.0-52.0); Hemoglobin 11.2 g/dl (14.0-18.0)
[2023-01-06] MEDS ORDERED: POTASSIUM CHLORIDE CRTAB 20 MEQ TABCR PO SCH (21:00)
[2023-01-06] MEDS: MoRPHine SULFATE 2 MG/ML CARP IV PRN (21:01)
[2023-01-06] MEDS: POTASSIUM CHLORIDE 20 MEQ/15 ML UDC PO SCH (21:02)
[2023-01-06] MEDS: CHLORASEPTIC 1.4% SOLN 180 ML BTL MT PRN (21:02)
[2023-01-06 23:31] LABS: Hemoglobin 10.9 g/dl (14.0-18.0)
[2023-01-07] MEDS: LORazepam 2 MG/1 ML VIAL IV SCH (03:20)
[2023-01-07] MEDS: CHLORASEPTIC 1.4% SOLN 180 ML BTL MT PRN ×2 (03:21→07:52)
[2023-01-07] MEDS: PANTOprazole 40 MG in DEXTROSE 5% 100 ML IV SCH ×3 (03:58→15:07)
[2023-01-07 06:39] LABS: Hematocrit (blood only) 31.9 % (42.0-52.0); Hemoglobin 11.6 g/dl (14.0-18.0); Mean Corpuscular Hemoglobin 33.7 pg (25.0-34.0); Mean Corpuscular Hgb Conc 36.4 g/dL (32.0-36.0); Mean Corpuscular Volume 92.7 fL (80.0-100.0); Mean Platelet Volume 12.3 fL (9.4-12.4); Platelet Count 23 K/uL (130-400); RDW Coefficient of Variation 12.6 % (11.5-14.5); RDW Standard Deviation 42.9 fL (36.4-46.3); Red Blood Count 3.44 M/uL (4.70-6.10)
[2023-01-07 07:00] LABS: Eosinophils # (auto) 0.02 K/uL (0-0.50); Eosinophils % (auto) 0.7 %; Immature Granulocytes # (auto) 0.01 K/uL (0.01-0.20); Immature Granulocytes % (auto) 0.3 %; Lymphocytes # (auto) 0.65 K/uL (1.2-3.4); Lymphocytes % (auto) 22.4 %; Monocytes # (auto) 0.17 K/uL (0.11-0.59); Monocytes % (auto) 5.9 %; Neutrophils # (auto) 2.05 K/uL (1.40-6.50); Neutrophils % (auto) 70.7 %
[2023-01-07 07:01] LABS: Prothrombin Time 11.3 Seconds (9.0-12.0)
[2023-01-07 07:07] LABS: Albumin Globulin Ratio 1.5 (0.9-2); Albumin Level 3.8 gm/dl (3.4-5.0); BUN Creatinine Ratio 6.3 (10-20); Bilirubin,Total 2.5 mg/dl (0.2-1.0); Calcium 8.5 mg/dl (8.6-10.3); Creatinine Clr Calc Pharmacy 145.4 ml/min; Est GFR (Non-African American) 126.9 ml/min; Globulin 2.5 gm/dl (2.5-4.0); Magnesium 1.7 mg/dl (1.7-2.4); Phosphorus 2.2 mg/dl (2.5-4.9); Potassium 3.1 mmol/L (3.5-5.1); Total Protein 6.3 gm/dl (6.0-8.3)
[2023-01-07] MEDS ORDERED: MAGNESIUM SULFATE / D5W 1 GM/100 ML BAG IV ONE (07:28)
[2023-01-07] MEDS: POTASSIUM CHLORIDE 20 MEQ/15 ML UDC PO SCH ×2 (07:53→20:33)
[2023-01-07] MEDS: FOLIC ACID 1 MG in SYRINGE 9.8 ML IV SCH (08:03)
[2023-01-07] MEDS ORDERED: chlordiazePOXIDE HCl 25 MG CAP PO SCH (09:00)
[2023-01-07] MEDS: THIAMINE HCL 250 MG in SODIUM CHLORIDE 0.9% 50 ML IV SCH (09:09)
[2023-01-07] MEDS: POTASSIUM CHLORIDE CRTAB 20 MEQ TABCR PO SCH ×3 (09:18→20:32)
[2023-01-07] MEDS: chlordiazePOXIDE HCl 25 MG CAP PO SCH ×3 (09:18→20:31)
--- NOTE | 2023-01-07 11:33 | Communication Note ---
Date of Service: January 07, 2023 Patient is a 37 yo male with alcohol withdrawal & seizure. GI following for hematemesis. No ongoing bleeding at this time--documented stools without BRBPR or melena. H/H 11.6/31.9. -Continue Protonix 40 mg BID when discharged -Outpatient EGD to occur for further evaluation -Continue to monitor for overt GI bleeding
[2023-01-07] MEDS ORDERED: LORazepam 2 MG/1 ML VIAL IV STA (15:21)
[2023-01-07] MEDS: MoRPHine SULFATE 2 MG/ML CARP IV PRN ×2 (16:33→19:35)
--- NOTE | 2023-01-07 18:20 | Hospitalist Progress Note ---
Date of Service January 07, 2023 Assessment & Plan (1) Alcohol withdrawal seizure: Plan: Acute on chronic Recent admission for the same in October. No need for Keppra given alcohol level positive on admission, seizure due to alcohol withdrawal Patient on Librium oral dosing with backup Ativan still with some tachycardia Patient will need to have referred to alcohol outpatient treatment programs this is multiple times for this patient (2) Hypophosphatemia: Plan: acute self limited ; replete hypokalemia, acute, self limited replete (3) Tongue laceration: Plan: Patient will have a soft and liquid diet tongue is healing Pantoprazole 40mg will change to p.o. Although tongue has a healing laceration does not look pleasant I do not feel there is any secondary infection within it (4) Respiratory alkalosis: Plan: Suspect from tachypnea metabolic alkalosis -self-limited resolved (5) Alcoholic hepatitis: Plan: Mahnaz's discriminant function 0, good prognosis Given thrombocytopenia possible splenic sequestration patient still pancytopenic with elevated bili but reduced transaminases Plan VTE prophylaxis -contraindicated with thrombocytopenia Admission and Anticipated Discharge Date Admission Date: January 05, 2023 Subjective pt is a bit more anxious with recent taper to po librium no tremor but having some tachycardia to 140 bpm Physical Exam Physical Exam: Patient is awake and alert he has no tremor but feels anxious he is tachycardic Results & Data Results & Data Vital Signs (Past 12 Hours) Vital Signs Temp Pulse Pulse Pulse Resp BP BP 01/07/23 16:30 97 H 18 108/78 01/07/23 15:10 98.6 F 97 H 16 102/60 01/07/23 14:45 107 H 01/07/23 11:32 98.6 F 109 H 20 102/72 01/07/23 08:00 90 01/07/23 07:23 98.6 F 89 20 102/69 Pulse Ox O2 Del Method 01/07/23 16:30 97 Room Air 01/07/23 15:10 99 Room Air 01/07/23 14:45 01/07/23 11:32 98 Room Air 01/07/23 08:00 01/07/23 07:23 98 Room Air Laboratory Results Reviewed CBC still pancytopenic Reviewed complete metabolic panel PG Care Time/CCT Total # of Minutes Spent Total Time Spent with Patient: Total time spent is greater than 50% in coordination of care (as documented) at patient's floor/unit and/or counseling patient: Coding Level of Care Code 12304 SUB INP/OBS CARE 2/35MIN Diagnoses Alcohol withdrawal seizure F10.939; R56.9 Hypophosphatemia E83.39 Tongue laceration S01.512A Respiratory alkalosis E87.3 Alcoholic hepatitis K70.10
[2023-01-07] MEDS: FAMOTIDINE 20 MG TAB PO SCH (20:31)
[2023-01-07] MEDS ORDERED: GABAPENTIN 300 MG CAP PO SCH (21:00)
[2023-01-07] MEDS ORDERED: diphenhydrAMINE Capsule 25 MG CAP PO ONE (22:03)
[2023-01-07 22:22] LABS: 7-Aminoclonaz, Confirm NEGATIVE ng/mL (<25); Hydro-Alp Ur, GC/MS NEGATIVE ng/mL (<25); Hydroxyethylflurazepam, Conf NEGATIVE ng/mL (<50); Hydroxymidazolam Ur, GC/MS >2000 ng/mL (<50); Hydroxytriazolam NEGATIVE ng/mL (<50); Lorazepam, Ur GC/MS NEGATIVE ng/mL (<50); Nordiazepam, Confirm 69 ng/mL (<50); Oxazepam Ur, GC/MS NEGATIVE ng/mL (<50); Temazepam, Confirm NEGATIVE ng/mL (<50)
[2023-01-08 06:45] LABS: Albumin Globulin Ratio 1.3 (0.9-2); Albumin Level 4.3 gm/dl (3.4-5.0); BUN Creatinine Ratio 6.2 (10-20); Calcium 9.5 mg/dl (8.6-10.3); Creatinine Clr Calc Pharmacy 143.1 ml/min; Est GFR (African American) 146.1 ml/min; Globulin 3.2 gm/dl (2.5-4.0); Potassium 4.1 mmol/L (3.5-5.1); Total Protein 7.5 gm/dl (6.0-8.3)
[2023-01-08] MEDS: FAMOTIDINE 20 MG TAB PO SCH (08:10)
[2023-01-08] MEDS: chlordiazePOXIDE HCl 25 MG CAP PO SCH (08:10)
[2023-01-08] MEDS: THIAMINE HCL 250 MG in SODIUM CHLORIDE 0.9% 50 ML IV SCH (08:22)
[2023-01-08] MEDS: FOLIC ACID 1 MG in SYRINGE 9.8 ML IV SCH (08:22)
--- NOTE | 2023-01-08 14:14 | Discharge Summary ---
Date of Service January 08, 2023 Admission HPI Per Admitting Provider Tristin Alvares is a 37 year old with alcohol use disorder who presents to the ER following multiple seizures at home. He is unable to remember the seizures or able to tell me when his last drink was. He tells me he last drank alcohol several weeks ago and cannot understand why he is having seizures. He was seen in the ER yesterday with hallucinations with a positive alcohol level. He eventually signed out against medical advice despite initially requesting treatment for withdrawal. His girlfriend at bedside reports he stopped drinking 36 hours ago. He has had 2 seizures earlier today with EMS called after each one and him refusing transportation to the hospital. After the third seizure he allowed them to transport him to the emergency room. He was given diazepam 5mg IV x2 in the ER for alcohol withdrawal. No further seizures. He has been spitting up blood in the ER which he feels is from a tongue laceration. Bright red blood on vomit bags. He was therefore started on pantoprazole IV bolus and drip. He was referred to medicine for admission and ongoing management. Principal Diagnosis Alcohol withdrawal with seizure Tongue laceration from above Discharge Exam Patient awake alert nontremulous. Does have some sloughing of skin from his tongue laceration. His tongue itself is not significantly swollen or indurated and looks to be healing appropriately Remains mildly tachycardic with exertion but heart appears regular Discharge Data Allergies Allergy/AdvReac Type Severity Reaction Status Date / Time No Known Allergies Allergy Unverified 11/07/22 08:59 Consultations 01/05/23 17:49 ED Decision to Admit Stat 01/05/23 21:10 Consult Director Of Food And Nutrition Services Routine 01/05/23 22:11 Consult Gastroenterology Routine Consult Psychiatry Routine Ordered Studies 01/05/23 14:54 CT head/brain wo con Stat Hospital Course (1) Alcohol withdrawal seizure: Acute on chronic now seems to be stable Neurology has decided on not pursuing formal antiseizure medications and feels his seizure is secondary to his alcohol withdrawal Patient be discharged on Librium tapering doses Extremity discussed alcohol cessation with this gentleman including discussion of naltrexone with his outpatient providers once he is through and completes his Librium taper for his withdrawal Patient will need to have referred to alcohol outpatient treatment programs this is multiple times for this patient (2) Hypophosphatemia: acute self limited ; replete hypokalemia, acute, self limited replete (3) Tongue laceration: Patient will have a soft and liquid diet tongue is healing Patient be discharged on Augmentin therapy (4) Respiratory alkalosis: Suspect from tachypnea metabolic alkalosis -self-limited resolved (5) Alcoholic hepatitis: Mahnaz's discriminant function 0, good prognosis Given thrombocytopenia possible splenic sequestration Total Time Total Time Spent Total Time Spent (In Minutes): It required greater than 30 minutes to prepare this patient for discharge Discharge Plan Discharge Items Patient Disposition: Home - Self-Care Reason For Visit: ALCOHOL WITHDRAWAL SEIZURE Discharge Diagnosis: alcohol withdrawal seizure tongue laceration Activity: Resume your previous activity Non-emergency contact: Primary Care Provider Call non-emergency contact if: your symptoms worsen Follow-up/Referrals: PCP,NO [Primary Care Provider] - Diet: Regular Addtl Attending Provider Instructions: The only way to stop drinking is absolutely no alcohol there will be a tapering dose of librium to help ease your alcohol withdrawal, please see a primary care doctor to discuss naltrexone please rinse your mouth with salt water twice a day and have good tooth brushing twice a day put a teaspoon of salt in warm water and swish aorund mouth and tongue to encourage some of the tissue to release and spit out finish your antibiotics Pending Studies at Discharge: No Stand-Alone Forms: My [facility] [employer], Smoking Cessation Medications and DC Order Prescriptions: New amoxicillin-pot clavulanate 875-125 mg Tablet 1 tab PO BIDM Qty: 12 0RF chlordiazepoxide HCl 10 mg capsule 10 mg PO UD Qty: 33 0RF Rx Instructions: 4 three times a day for one day 3 three times a day for one day 2 three times a day for one day 1 three times a day for one day 1 twice a day for one day 1 at night then stop Discharge Orders: Discharge Order (Routine); Ordered 01/08/23 Ordered By: Dixon Barba/Other Patient Handouts: Social Drinking vs Problem Drinking, Alcoholism: Myths and Facts, Alcoholism Resources, Alcohol Withdrawal: What to Expect, Addiction: Getting Help, Addiction Recovery Counseling, Addiction Recovery Relapse Admission Data Admit Date/Time: 01/05/23 18:06 Attending Provider: Dixon Lewis Admit Provider: Darrion David Primary Care Provider: PCP,NO Other Providers: Darrion David ; Nathalie Duarte ; Chava Metcalf ; Jesse Thakur ; Vandana Bourgeois ; Mirna Yarbrough ; Henny Morales ; Brittaney Cullen ; Kamran Alcala ; Steve Pinto ; Maurizio Marie ; Concha Whitfield ; Randy Elaine ; Mindy Razo ; Cherie Yusuf ; Re Hugo ; Vera Springer ; Nisa Ashley ; Terry Jones ; Urban Barron ; Joann Workman ; Bushra Ventura Jr ; Deanne Abad ; Maura Webster ; Dom Raymond Other Interventions: Discharge Summary Assessment (RN) Last Done: 01/08/23 12:10 Coding Level of Care Code 72596 INP/OBS DISCH >30 MIN Diagnoses Alcohol withdrawal seizure F10.939; R56.9 Hypophosphatemia E83.39 Tongue laceration S01.512A Respiratory alkalosis E87.3 Alcoholic hepatitis K70.10
[2023-01-08] MEDS ORDERED: AMOXICILLIN/CLAVULANATE 875 MG TAB PO SCH (17:00)
== END 2023-01-08 12:31 | disposition home or self-care (01) | DRG 897 ==
LOC: ED 14:47 → SUATTDRO 18:06 → 1E 18:06 → 2W 01-06 15:39